=== PATIENT | male | born 1955 | race Hispanic/Latino ===

== ENCOUNTER 2017-01-27 10:48 | Inpatient (IN) | payer MEDICARE, OTHER ==
[~2017-01-27] VITALS: Ht 175.3 cm; Wt 54.4 kg
[~2017-01-27 10:48] MED LIST: ABILIFY20 MG ORAL; ALUMINUM H320 MG/5 M PO; AMLODIPINE BESYL5 MG ORAL; ASPIR-LOW81 MG ORAL; ATORVASTATIN CA20 MG ORAL; BACTRIM DOUBLE S1 E1 ORAL; BISACODYL5 MG ORAL; DEPAKENE L250 MG/5 M GT; DOCUSATE SODIU100 MG ORAL; GLIMEPIRIDE1 MG GT; KLONOPIN0.5 MG ORAL; LISINOPRIL10 MG ORAL; LISINOPRIL5 MG ORAL; LORAZEPAM1 MG ORAL; MAGNESIUM400 M2 PO; METFORMIN HCL500 M1 ORAL; MIRTAZAPINE7.5 MG ORAL; MOM30 ML ORAL; NORCO 5-325 TA1 EAC1 ORAL; NOVOLIN R100 UNIT/1 SUBQ; PANTOPRAZOLE SO20 MG ORAL; PERMETHRIN60 GM TOPIC; PRO-AMATINE5 M1 PO; SIMVASTATIN40 MG ORAL; TAMSULOSIN HCL0.4 MG ORAL; VANCO-0.9%1.25 GM/25 IV
[2017-01-27 11:08] VITALS: BP 102/68
[2017-01-27] MEDS ORDERED: NS 1000ml 1,600 ML IVLG ONE (11:45)
[2017-01-27 11:52] LABS: BASOPHILS % (AUTO) 0.7 % (0.0-2.0); EOSINOPHILS % (AUTO) 0.1 % (0.0-3.0); LYMPHOCYTES % (AUTO) 11.6 % (20.0-45.0); MEAN CORPUSCULAR HEMOGLOBIN 30.7 PG (27.0-31.0); MEAN CORPUSCULAR HGB CONC 32.7 G/DL (32.0-36.0); MEAN CORPUSCULAR VOLUME 94 FL (80-99); MEAN PLATELET VOLUME 5.5 FL (6.5-10.1); NEUTROPHILS % (AUTO) 84.6 % (45.0-75.0); PLATELET COUNT 332 K/UL (150-450); RED BLOOD COUNT 3.37 M/UL (4.70-6.10); RED CELL DISTRIBUTION WIDTH 13.5 % (11.6-14.8); WHITE BLOOD COUNT 3.8 K/UL (4.8-10.8)
[2017-01-27 12:04] LABS: APPEARANCE,URINE CLEAR; KETONES,URINE NEGATIVE (NEGATIVE); LEUKOCYTE ESTERASE ,URINE 1+ (NEGATIVE); NITRITE,URINE NEGATIVE (NEGATIVE); PH,URINE 8 (4.5-8.0); PROTEIN,URINE 2+ (NEGATIVE); UROBILINOGEN,URINE 12 MG/DL (0.0-1.0)
[2017-01-27 12:10] LABS: TROPONIN I < 0.30 ng/mL (<=0.30)
[2017-01-27 12:13] LABS: BACTERIA,URINE FEW /HPF; MUCUS,URINE OCCASIONAL /LPF (NONE/OCC); RBC,URINE 0-2 /HPF (0 - 0); SQUAMOUS EPITHELIAL CELL,UR OCCASIONAL /LPF (NONE/OCC)
[2017-01-27 12:13] LABS: ALANINE AMINOTRANSFERASE 12 U/L (3-41); ALBUMIN/GLOBULIN RATIO 0.6 (1.0-2.7); ANION GAP 9 (5-15); ASPARTATE AMINO TRANSFERASE 25 U/L (5-40); CALCIUM 8.1 mg/dL (8.6-10.2); CARBON DIOXIDE 30 mEQ/L (20-30); CHLORIDE 88 mEQ/L (98-107); CREATININE 0.3 mg/dL (0.7-1.2); GLOMERULAR FILTRATION RATE > 60 mL/min (>60); HEMOLYSIS 27; POTASSIUM 4.9 mEQ/L (3.4-4.9); SODIUM 127 mEQ/L (135-145); TOTAL PROTEIN 6.5 g/dL (6.6-8.7)
[2017-01-27 12:23] LABS: CKMB 2.5 ng/mL (< 6.7)
--- NOTE | 2017-01-27 12:29 | Emergency Room Report ---
History of Present Illness General Chief Complaint: Generalized Weakness Source: Patient, EMS Present Illness HPI Patient is a 61-year-old male who presented after having increased generalized weakness and decreased oxygen saturation. Patient prior history of neuromuscular disorder. Patient had increased hypoxia. Patient was increasingly weak. Patient prior history of hyponatremia. He had gradual onset of symptoms. Patient was sent for further evaluation. 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 Hx Diabetes: Yes Hx Cancer: No Hx Gastrointestinal Problems: Yes - G TUBE Hx Neurological Problems: Yes Hx Encephalitis: Yes - encepalopathy Hx Epilepsy: Yes Review of Systems All Other Systems: negative except mentioned in HPI Physical Exam Vital Signs Date Time Temp Pulse Resp B/P Pulse Ox O2 Delivery O2 Flow Rate FiO2 01/27/17 10:40 98.4 94 20 102/68 93 Nasal Cannula 3.0 General Appearance: moderate distress, Chronically Ill ENT: dry mucus membranes Neck: full range of motion Respiratory: lungs clear, decreased breath sounds Cardiovascular #1: no edema Gastrointestinal: normal bowel sounds, non tender, soft, no mass Musculoskeletal: other - atrophy Neurologic: aphasia, motor weakness, other - poor alertness Psychiatric: other - nonverbal Skin: normal inspection Medical Decision Making Diagnostic Impression: Primary Impression: Pneumonia Additional Impression: Hyponatremia ER Course The patient presented for shortness of breath.Differential included but was not limited to anemia, pneumonia, pneumothorax, myocardial infarction, pericardial effusion, congestive heart failure, acidosisBecause of complexity of patient's case laboratory testing and imaging studies were ordered. EKG interpreted by me showed normal sinus rhythm with a rate of [address] or T wave changes. Blood cultures are obtained. Patient was noted to have a normal lactic acid level. Patient was given IV fluids. He was started on IV antibiotics. Dr. Nieves was contacted for inpatient management due to pneumonia. Patient was given IV antibiotics Labs Test 01/27/17 11:30 01/27/17 11:55 White Blood Count 3.8 K/UL (4.8-10.8) Red Blood Count 3.37 M/UL (4.70-6.10) Hemoglobin 10.4 G/DL (14.2-18.0) Hematocrit 31.7 % (42.0-52.0) Mean Corpuscular Volume 94 FL (80-99) Mean Corpuscular Hemoglobin 30.7 PG (27.0-31.0) Mean Corpuscular Hemoglobin Concent 32.7 G/DL (32.0-36.0) Red Cell Distribution Width 13.5 % (11.6-14.8) Platelet Count 332 K/UL (150-450) Mean Platelet Volume 5.5 FL (6.5-10.1) Neutrophils (%) (Auto) 84.6 % (45.0-75.0) Lymphocytes (%) (Auto) 11.6 % (20.0-45.0) Monocytes (%) (Auto) 3.0 % (1.0-10.0) Eosinophils (%) (Auto) 0.1 % (0.0-3.0) Basophils (%) (Auto) 0.7 % (0.0-2.0) Sodium Level 127 mEQ/L (135-145) Potassium Level 4.9 mEQ/L (3.4-4.9) Chloride Level 88 mEQ/L (98-107) Carbon Dioxide Level 30 mEQ/L (20-30) Anion Gap 9 (5-15) Blood Urea Nitrogen 14 mg/dL (7-23) Creatinine 0.3 mg/dL (0.7-1.2) Estimat Glomerular Filtration Rate > 60 mL/min (>60) Glucose Level 78 mg/dL (74-106) Lactic Acid Level 1.00 mmol/L (0.66-2.22) Calcium Level 8.1 mg/dL (8.6-10.2) Total Bilirubin 0.2 mg/dL (0.0-1.2) Aspartate Amino Transf (AST/SGOT) 25 U/L (5-40) Alanine Aminotransferase (ALT/SGPT) 12 U/L (3-41) Alkaline Phosphatase 46 U/L (40-129) Total Creatine Kinase 226 U/L (38-174) Creatine Kinase MB 2.5 ng/mL (< 6.7) Creatine Kinase MB Relative Index 1.1 Troponin I < 0.30 ng/mL (<=0.30) Total Protein 6.5 g/dL (6.6-8.7) Albumin 2.6 g/dL (3.5-5.2) Globulin 3.9 g/dL Albumin/Globulin Ratio 0.6 (1.0-2.7) Urine Color Yellow Urine Appearance Clear Urine pH 8 (4.5-8.0) Urine Specific [place] 1.010 (1.005-1.035) Urine Protein 2+ (NEGATIVE) Urine Glucose (UA) Negative (NEGATIVE) Urine Ketones Negative (NEGATIVE) Urine Occult Blood Negative (NEGATIVE) Urine Nitrite Negative (NEGATIVE) Urine Bilirubin Negative (NEGATIVE) Urine Urobilinogen 12 MG/DL (0.0-1.0) Urine Leukocyte Esterase 1+ (NEGATIVE) Urine RBC 0-2 /HPF (0 - 0) Urine WBC 2-4 /HPF (0 - 0) Urine Squamous Epithelial Cells Occasional /LPF Urine Bacteria Few /HPF (NONE) Urine Mucus Occasional /LPF Chest X-Ray Diagnostic Results EP Interpretation: Yes Findings: no effusion, no pneumothorax, other - right lower lung infiltrate Number of Views: 1 Last Vital Signs Date Time Temp Pulse Resp B/P Pulse Ox O2 Delivery O2 Flow Rate FiO2 01/27/17 11:08 98.6 20 102/68 93 Nasal Cannula 3.0 01/27/17 10:40 94 Status: unchanged Disposition: ADMITTED INPATIENT Condition: Serious Referrals: Kyle Nieves MD (PCP) Randell Morales Jan 27, 2017 12:29
[2017-01-27] MEDS ORDERED: Ampicillin/Sulbactam Sod 3 GM in NS 110 ML IVPB ONE (12:30)
[2017-01-27] MEDS ORDERED: Unasyn 3gm Inj ONE (12:44)
--- NOTE | 2017-01-27 12:55 | Consultation ---
Consult Note Consult Note Chief Complaint: Generalized Weakness Patient is a 61-year-old male who presented after having increased generalized weakness and decreased oxygen saturation. Patient prior history of neuromuscular disorder. Patient had increased hypoxia. Patient was increasingly weak. Patient prior history of hyponatremia. He had gradual onset of symptoms. Patient was sent for further evaluation. No Known Allergies (Unverified , 10/23/14) Hx Cardiac Problems: Yes Hx Hypertension: Yes Hx Diabetes: Yes Hx Gastrointestinal Problems: Yes - G TUBE Hx Neurological Problems: Yes Hx Encephalitis: Yes - encepalopathy Hx Epilepsy: Yes Assessment/Plan Status; HypoNatremia- DM, Proteinuria Pneumonia- PH: 1. History of hypertension. 2. Dallas's disease. 3. Psychosis. 4. Hyperlipidemia. 5. Diabetes. 6. Mood disorder. 7. Benign prostatic hypertrophy. Plan: 3% saline- gastric support- Monitor Lytes- Keep BP and BS in check SHILOH HUTSON Jan 27, 2017 12:55
--- NOTE | 2017-01-27 13:24 | Infectious Diseases Prog Note ---
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 Assessment & Plan: advanced , continue supportive care, consult neurology (5) Ear abrasion Assessment & Plan: recommend , ENT eval and offloading, with local wound care Subjective Allergies: Coded Allergies: No Known Allergies (Unverified , 10/23/14) Objective Vital Signs Last 24 Hour Vital Signs Date Time Temp Pulse Resp B/P Pulse Ox O2 Delivery O2 Flow Rate FiO2 01/27/17 11:08 98.6 20 102/68 93 Nasal Cannula 3.0 01/27/17 10:40 98.4 94 20 102/68 93 Nasal Cannula 3.0 Height (Feet): 5 Height (Inches): 9.00 Weight (Pounds): 120 Laboratory Tests Test 01/27/17 11:30 01/27/17 11:55 White Blood Count 3.8 K/UL (4.8-10.8) L Red Blood Count 3.37 M/UL (4.70-6.10) L Hemoglobin 10.4 G/DL (14.2-18.0) L Hematocrit 31.7 % (42.0-52.0) L Mean Corpuscular Volume 94 FL (80-99) Mean Corpuscular Hemoglobin 30.7 PG (27.0-31.0) Mean Corpuscular Hemoglobin Concent 32.7 G/DL (32.0-36.0) Red Cell Distribution Width 13.5 % (11.6-14.8) Platelet Count 332 K/UL (150-450) Mean Platelet Volume 5.5 FL (6.5-10.1) L Neutrophils (%) (Auto) 84.6 % (45.0-75.0) H Lymphocytes (%) (Auto) 11.6 % (20.0-45.0) L Monocytes (%) (Auto) 3.0 % (1.0-10.0) Eosinophils (%) (Auto) 0.1 % (0.0-3.0) Basophils (%) (Auto) 0.7 % (0.0-2.0) Sodium Level 127 mEQ/L (135-145) L Potassium Level 4.9 mEQ/L (3.4-4.9) Chloride Level 88 mEQ/L (98-107) L Carbon Dioxide Level 30 mEQ/L (20-30) Anion Gap 9 (5-15) Blood Urea Nitrogen 14 mg/dL (7-23) Creatinine 0.3 mg/dL (0.7-1.2) L Estimat Glomerular Filtration Rate > 60 mL/min (>60) Glucose Level 78 mg/dL (74-106) Lactic Acid Level 1.00 mmol/L (0.66-2.22) Calcium Level 8.1 mg/dL (8.6-10.2) L Total Bilirubin 0.2 mg/dL (0.0-1.2) Aspartate Amino Transf (AST/SGOT) 25 U/L (5-40) Alanine Aminotransferase (ALT/SGPT) 12 U/L (3-41) Alkaline Phosphatase 46 U/L (40-129) Total Creatine Kinase 226 U/L (38-174) H Creatine Kinase MB 2.5 ng/mL (< 6.7) Creatine Kinase MB Relative Index 1.1 Troponin I < 0.30 ng/mL (<=0.30) Total Protein 6.5 g/dL (6.6-8.7) L Albumin 2.6 g/dL (3.5-5.2) L Globulin 3.9 g/dL Albumin/Globulin Ratio 0.6 (1.0-2.7) L Urine Color Yellow Urine Appearance Clear Urine pH 8 (4.5-8.0) Urine Specific [place] 1.010 (1.005-1.035) Urine Protein 2+ (NEGATIVE) H Urine Glucose (UA) Negative (NEGATIVE) Urine Ketones Negative (NEGATIVE) Urine Occult Blood Negative (NEGATIVE) Urine Nitrite Negative (NEGATIVE) Urine Bilirubin Negative (NEGATIVE) Urine Urobilinogen 12 MG/DL (0.0-1.0) H Urine Leukocyte Esterase 1+ (NEGATIVE) H Urine RBC 0-2 /HPF (0 - 0) H Urine WBC 2-4 /HPF (0 - 0) Urine Squamous Epithelial Cells Occasional /LPF Urine Bacteria Few /HPF (NONE) Urine Mucus Occasional /LPF Joe Allen M.D. Jan 27, 2017 13:24
[2017-01-27] MEDS ORDERED: MULTIVITAMINS1 EAC8 GT (13:42)
[2017-01-27] MEDS ORDERED: FLAGYL500 MG GT (13:42)
[2017-01-27] MEDS ORDERED: ZINC SULFATE220 M1 GT (13:42)
[2017-01-27] MEDS ORDERED: VITAMIN C500 M1 GT (13:42)
[2017-01-27 13:45] VITALS: BP 97/48
[2017-01-27] MEDS ORDERED: KLONOPIN1 MG GT (13:45)
[2017-01-27] MEDS ORDERED: LAMICTAL25 MG GT (13:45)
[2017-01-27] MEDS ORDERED: ASPIR-LOW81 MG GT (13:45)
[2017-01-27] MEDS ORDERED: BENZTROPINE MESY1 MG GT (13:45)
[2017-01-27] MEDS ORDERED: CALCIUM CARBON500 M1 GT (13:48)
[2017-01-27] MEDS ORDERED: GABAPENTIN100 MG GT (13:48)
[2017-01-27] MEDS ORDERED: NaCl 3% 500ml 500 ML IV ONE (15:00)
[2017-01-27] MEDS ORDERED: Zosyn 4.5gm inj ONE (15:02)
[2017-01-27] MEDS ORDERED: Vancomycin 1gm inj IVPB ONE (15:02)
[2017-01-27] MEDS: Vancomycin 1 GM in D5W 275 ML IVPB SCH (15:12)
[2017-01-27 16:00] VITALS: BP 108/84
[2017-01-27] MEDS: Piperacillin/Tazobactam 4.5 GM in NS 110 ML IVPB SCH ×2 (16:04→23:47)
--- NOTE | 2017-01-27 16:06 | Diagnostic Imaging Report ---
Indication: SOB chest pain Technique: One view of the chest Comparison: none Findings: Jejunoileal infiltrates throughout the right lung are noted. There is some left perihilar interstitial disease. Pleural spaces are clear. Size is normal. Impression: Diffuse right, minimal left lung infiltrates versus edema. Correlate with clinical findings
[2017-01-27] MEDS: Pantoprazole Inj IVP SCH (17:43)
[2017-01-27 17:48] VITALS: BP 93/43
--- NOTE | 2017-01-27 20:02 | Consultation ---
Consult Note Consult Note NEUROLOGY CONSULTATION: Full note dictated #[id number] 61 y/o, HM of ?H who has a long H/O HD. He was hospitalized for a change in MS. ON EXAM: Oriented to self only. Global cognitive problems. Generalized weakness. Choreoathetotic movements of UE and facial muscles. Globally diminished reflexes. LABS: Na 127 Anemia UTI IMPRESSION: Patient with advanced HD Superadded encephalopathy due to hyponatremia and UTI. REC: Rx of infection and correction of metabolic imbalances. Garrison Reid M.D., M.S.P.H. GARRISON REID Jan 27, 2017 20:02
[2017-01-27 20:30] VITALS: BP 100/57
--- NOTE | 2017-01-27 21:38 | Consultation ---
DATE OF CONSULTATION: INFECTIOUS DISEASE CONSULTATION: REASON FOR CONSULTATION: Healthcare-acquired pneumonia, sepsis, and recommendation for antibiotics therapy. REQUESTING PHYSICIAN: Kyel Nieves M.D. HISTORY OF PRESENT ILLNESS: The patient is a 61-year-old male with progressive Le Flore disease and disability, was sent to [facility] for decreased oxygen saturation from the correction facility home and generalized weakness. The patient had Le Flore disease which has been progressive. He was found to be hypoxemic at the correction facility. The patient was recently admitted to [facility] for sacral wound infection and sepsis and he underwent surgical debridement and was transferred back to his correction facility on antibiotics. In the emergency room, he was saturating 93% on three liters nasal cannula. His temperature was 98.4 degrees. The patient look septic, so he was admitted to the hospital for sepsis management and antibiotics treatment and I was consulted by the primary provider for antibiotics therapy for his pneumonia with right lower lobe infiltrates. As of note, the patient is poor historian, cannot provide any history. History was mainly obtained from the medical record. PAST MEDICAL HISTORY: Significant for coronary artery disease, hypertension, diabetes, dysphagia status post G-tube placement, neurodegenerative disorder with Le Flore disease, advanced encephalopathy, and epilepsy. PAST SURGICAL HISTORY: He had G-tube placed. MEDICATIONS: He had received Unasyn in the emergency room. ALLERGIES: He has no known drug allergy. SOCIAL HISTORY: He lives in the correction facility. No recent drugs, tobacco, or alcohol. FAMILY HISTORY: Unable to obtain. REVIEW OF SYSTEMS: Unable to obtain at this point, the patient is nonverbal. PHYSICAL EXAMINATION: VITAL SIGNS: Temperature 98.6 degrees, pulse 83, respirations 20, blood pressure 97/48, pulse oximetry 98, and saturation 98% on four liters nasal cannula. GENERAL: The patient is a middle-aged male with altered, confused, and mildly agitated, not in distress. HEENT: Normocephalic and atraumatic. Pupils reactive to light. Dry oral mucosa. No ulceration or exudate. NECK: Supple. No lymphadenopathy. CARDIOVASCULAR: Regular rate and rhythm. No murmur. LUNGS: He had diminished breathing sound with crackles on the right lower lobe. No wheezing or rhonchi. ABDOMEN: Soft, nontender, and nondistended. G-tube site looks intact. No erythema or drainage. EXTREMITIES: No edema. No cyanosis. SKIN: He had two sacral wounds debrided with mild serosanguinous drainage coming out of both of them and skin erythema surrounding the wound. LABORATORY AND DIAGNOSTIC DATA: His white count of 3.8, hemoglobin 10.4, and platelet count of 332,000. BUN 14 and creatinine 0.3. AST 25 and ALT 12. Urinalysis showed leukocyte esterase +1, WBC 2 to 4, and occasional bacteria. Imaging, chest x-ray showed right lower lobe infiltrate. ASSESSMENT AND PLAN: 1. Healthcare-acquired pneumonia. Start the patient on vancomycin and Zosyn. Send sputum culture. 2. Sepsis due to the above. We will start Zosyn and vancomycin. Send blood culture. Continue fluids for hydration. 3. Sacral pressure ulcer. We will send wound culture. Recommend wound care consultation. Continue offloading. 4. Le Flore disease, advanced. Continue supportive care. Consult Neurology. Joe Allen M.D. DR: Randy JOB#: [id number] CC:
--- NOTE | 2017-01-27 22:27 | Cardiology Progress Note ---
Assessment/Plan Assessment/Plan The patient is seen and examined, full consult note is dictated. Objective Last 24 Hour Vital Signs Date Time Temp Pulse Resp B/P Pulse Ox O2 Delivery O2 Flow Rate FiO2 01/27/17 20:30 98.6 79 15 100/57 99 Nasal Cannula 4.0 01/27/17 17:48 84 20 93/43 99 Nasal Cannula 4.0 01/27/17 16:00 82 20 108/84 96 Nasal Cannula 4.0 01/27/17 13:45 83 20 97/48 98 Nasal Cannula 4.0 01/27/17 11:08 98.6 20 102/68 93 Nasal Cannula 3.0 01/27/17 10:40 98.4 94 20 102/68 93 Nasal Cannula 3.0 Laboratory Tests Test 01/27/17 11:30 01/27/17 11:55 White Blood Count 3.8 K/UL (4.8-10.8) L Red Blood Count 3.37 M/UL (4.70-6.10) L Hemoglobin 10.4 G/DL (14.2-18.0) L Hematocrit 31.7 % (42.0-52.0) L Mean Corpuscular Volume 94 FL (80-99) Mean Corpuscular Hemoglobin 30.7 PG (27.0-31.0) Mean Corpuscular Hemoglobin Concent 32.7 G/DL (32.0-36.0) Red Cell Distribution Width 13.5 % (11.6-14.8) Platelet Count 332 K/UL (150-450) Mean Platelet Volume 5.5 FL (6.5-10.1) L Neutrophils (%) (Auto) 84.6 % (45.0-75.0) H Lymphocytes (%) (Auto) 11.6 % (20.0-45.0) L Monocytes (%) (Auto) 3.0 % (1.0-10.0) Eosinophils (%) (Auto) 0.1 % (0.0-3.0) Basophils (%) (Auto) 0.7 % (0.0-2.0) Sodium Level 127 mEQ/L (135-145) L Potassium Level 4.9 mEQ/L (3.4-4.9) Chloride Level 88 mEQ/L (98-107) L Carbon Dioxide Level 30 mEQ/L (20-30) Anion Gap 9 (5-15) Blood Urea Nitrogen 14 mg/dL (7-23) Creatinine 0.3 mg/dL (0.7-1.2) L Estimat Glomerular Filtration Rate > 60 mL/min (>60) Glucose Level 78 mg/dL (74-106) Lactic Acid Level 1.00 mmol/L (0.66-2.22) Calcium Level 8.1 mg/dL (8.6-10.2) L Total Bilirubin 0.2 mg/dL (0.0-1.2) Aspartate Amino Transf (AST/SGOT) 25 U/L (5-40) Alanine Aminotransferase (ALT/SGPT) 12 U/L (3-41) Alkaline Phosphatase 46 U/L (40-129) Total Creatine Kinase 226 U/L (38-174) H Creatine Kinase MB 2.5 ng/mL (< 6.7) Creatine Kinase MB Relative Index 1.1 Troponin I < 0.30 ng/mL (<=0.30) Total Protein 6.5 g/dL (6.6-8.7) L Albumin 2.6 g/dL (3.5-5.2) L Globulin 3.9 g/dL Albumin/Globulin Ratio 0.6 (1.0-2.7) L Urine Color Yellow Urine Appearance Clear Urine pH 8 (4.5-8.0) Urine Specific [place] 1.010 (1.005-1.035) Urine Protein 2+ (NEGATIVE) H Urine Glucose (UA) Negative (NEGATIVE) Urine Ketones Negative (NEGATIVE) Urine Occult Blood Negative (NEGATIVE) Urine Nitrite Negative (NEGATIVE) Urine Bilirubin Negative (NEGATIVE) Urine Urobilinogen 12 MG/DL (0.0-1.0) H Urine Leukocyte Esterase 1+ (NEGATIVE) H Urine RBC 0-2 /HPF (0 - 0) H Urine WBC 2-4 /HPF (0 - 0) Urine Squamous Epithelial Cells Occasional /LPF Urine Bacteria Few /HPF (NONE) Urine Mucus Occasional /LPF BEAU JC Jan 27, 2017 22:27
--- NOTE | 2017-01-27 22:33 | Consultation ---
Consult Note Consult Note Date of consultation: 01/27/17 : 1955 HEMATOLOGY AND ONCOLOGY CONSULTATION NOTE REQUESTING PHYSICIAN: Kyle Nieves MD Reason for consultation: Sepsis and PNA. Dear Dr. 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 Majority of the history is obtained from chart and initially was at [facility] for generalized weakness and AMS on the morning of . Pt was transferred to [facility], has labs shown that he has evidence of anemia, Hb currently 10.1. Hematology service was consulted. PAST MEDICAL HISTORY: As reviewed above. PAST SURGICAL HISTORY: PEG tube placement. ALLERGIES: NKDA. MEDICATIONS: Lisinopril, Klonopin, Zocur, doxycycline, magnesium oxide, Depakote , Remeron, benztropine, amlodipine, aspirin, lamotrigine. FAMILY HISTORY: difficult to obtain. SOCIAL HISTORY: No alcohol, tobacco, or illicit drug use. REVIEW OF SYSTEMS: Difficult to obtain given mental status changes. PHYSICAL EXAMINATION: VITAL SIGNS: Blood pressure 109/63, heart rate 98, O2 sat 94% RA, respiratory rate 12, temperature 98 degrees Fahrenheit. GENERAL: NAD, oriented PULMONARY: decreased breath sounds. CARDIOVASCULAR: regular rate. No S3 or S4. ABDOMEN: soft, nontender, nondistended. EXTREMITIES: 1+ edema. LABORATORY DATA: WBC 3.8, Hb 10.4, hematocrit 30, platelet count 332. ASSESSMENT: 1. Anemia 2/2 chronic disease. 2. Decreased Hb and hematocrit, r/o GI bleed. 3. Hypernatremia. 4. Hypertension. 5. Acute exacerbation of chronic encephalopathy. 6. Sepsis with decubitis ulcerations. 7. Psychiatric history. RECS: 1. Monitor counts. 2. Anemia workup has been ordered. 3. Hb goals above 7. 4. Peripheral smear to be reviewed. 5. Medications reviewed. Potential culprits include Depakote; however, the patient has been on this for long period of time. 6. Abx per ID service. 7. Appreciate neurology as well as ID recommendations. 8. Discussed with staff. Thank you, Dr. Kyle Nieves, for this kind referral. Please do not hesistate to contact me with any further questions. William Bradley. Jan 27, 2017 22:33
--- NOTE | 2017-01-27 23:18 | Consultation ---
DATE OF CONSULTATION: 01/27/2017 NEUROLOGY CONSULTATION CONSULTING PHYSICIAN: Fantasma Reid M.D. REQUESTING PHYSICIAN: Kyle Nieves M.D. HISTORY: Mr. Reece Murray is a 61-year-old, gentleman, of unknown handedness, who has a long history of Rawlings's disease. He has advanced Rawlings's disease and is basically bed bound and fed through a gastrostomy. He lives in a senior living, where he was noted to have an alteration in his mental state. The exact details of this alteration in mental status is quite mysterious to us. The patient himself is unable to give me any history. PAST MEDICAL HISTORY: Significant for Khalida's disease, hypertension, dyslipidemia, diabetes mellitus, psychosis, and benign prostatic hypertrophy. FAMILY HISTORY: Unavailable. PERSONAL HISTORY: Home: He lives in a senior living. Work: Unknown. Habits: Unknown. PRESENT MEDICATIONS: Includes aspirin 81 mg daily, pantoprazole, piperacillin, tazobactam, and vancomycin. PHYSICAL EXAMINATION: GENERAL: He is a well-developed, but lean and cachectic-looking gentleman, lying in an emergency room [facility], in a position. VITAL SIGNS: Pulse 84 per minute, blood pressure 93/43 mmHg, respirations 20 per minute, and temperature 98.6 degrees Fahrenheit. HEAD: Normocephalic and atraumatic. EENT: Examination benign. NECK: No neck rigidity was observed. NEUROLOGICAL EXAMINATION: MENTAL STATUS EXAMINATION: He was awake, but not completely alert. He was oriented to self only. He had no idea of where he was or what the date was. He was unable to cooperate for further mental status testing. SPEECH: He had a moderate dysarthria. LANGUAGE: He had problems with comprehension and expression of language. CRANIAL NERVE EXAMINATION: II: He did blink to threat in all dimas. He, however, was unable to cooperate for confrontation testing and in addition was also unable to count fingers. III, IV & : The external ocular movements were full and the pupils 3 mm in diameter, equal, round, regular, and reactive to light. V: He had normal facial sensations and the temporales, masseters, and pterygoids functioned normally. VII: He had normal facial expressions and no facial asymmetry. VIII: He was able to hear and had no nystagmus. IX: The palate moved symmetrically on phonation. X: He had no hoarseness of voice. XI: The sternocleidomastoids and trapezii functioned normally. XII: The tongue was in the midline without any fasciculations or atrophy. MOTOR SYSTEM: The tone was increased in all four extremities with spasticity. Examination of muscle mass revealed severe generalized muscle wasting involving the lower extremities more than the upper extremities. Examination of power was impossible to perform on individual muscle groups. He had a significant quadriparesis involving the lower extremities more than the upper extremities. SENSORY EXAMINATION: He responded appropriately to deep pain. He was unable to cooperate for other sensory modalities. REFLEXES: 1+ and bilaterally symmetrical at the biceps, triceps, brachioradialis, and knees and 0 at both ankles. The plantar responses were flexor bilaterally. COORDINATION, STANCE & GAIT: Could not be tested. ABNORMAL MOVEMENTS: He exhibited choreoathetotic movements involving his upper extremities and the facial muscles. In addition, he also exhibited constant bruxism. DIAGNOSTIC IMPRESSION: 1. Mr. Reece Murray is a 61-year-old, gentleman, of unknown handedness, who has a long history of Rawlings's disease, who was hospitalized for "a change in mental state and generalized weakness." This consultation was requested to evaluate the patient for his altered mental state. 2. On neurological examination, at this time, he does demonstrate global cerebral dysfunction. He is oriented to self only and is unable to cooperate for other mental status testing. He also demonstrates generalized weakness and generalized wasting of the muscles. His deep tendon reflexes are globally diminished. He, in addition, exhibits choreoathetotic movements of his upper extremities and facial muscles. 3. Laboratory data revealed that he is significantly hyponatremic with a sodium of 127. His CK is elevated to 226. He is significantly hypoalbuminemic with albumin of 2.6. His CBC reveals that he is anemic with a hemoglobin of 10.4 and his urinalysis revealed 1+ leukocyte esterase, 0 to 2 red blood cells per high-power field, 2 to 4 white blood cells per high-power field, and a few urinary bacteria. 4. 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 RECOMMENDATIONS: 1. Agree with management thus far. 2. Aggressive treatment of the patient's infectious process. 3. Correction of the patient's metabolic dysfunction. 4. Depending on how the patient fares over the next day or so, further recommendations will be given. Thank you for entrusting me with the care of Mr. Murray. I shall follow him with you. Fantasma Reid M.D., M.S.P.H. DR: ALBINA JOB#: [id number] MTDD
[2017-01-28] VITALS: BP 90/57
[2017-01-28] MEDS ORDERED: Vancomycin 1gm inj IVPB ONE (02:39)
[2017-01-28] MEDS: Vancomycin 1 GM in D5W 275 ML IVPB SCH ×2 (03:10→15:30)
[2017-01-28 04:00] VITALS: BP 95/50
[2017-01-28 05:04] LABS: MEAN CORPUSCULAR HEMOGLOBIN 31.7 PG (27.0-31.0); MEAN CORPUSCULAR HGB CONC 33.4 G/DL (32.0-36.0); MEAN CORPUSCULAR VOLUME 95 FL (80-99); MEAN PLATELET VOLUME 5.4 FL (6.5-10.1); PLATELET COUNT 301 K/UL (150-450); RED BLOOD COUNT 2.86 M/UL (4.70-6.10); RED CELL DISTRIBUTION WIDTH 13.5 % (11.6-14.8); WHITE BLOOD COUNT 2.6 K/UL (4.8-10.8)
[2017-01-28 05:19] LABS: ALANINE AMINOTRANSFERASE 13 U/L (3-41); ALBUMIN/GLOBULIN RATIO 0.6 (1.0-2.7); ANION GAP 11 (5-15); ASPARTATE AMINO TRANSFERASE 29 U/L (5-40); CARBON DIOXIDE 28 mEQ/L (20-30); CHLORIDE 89 mEQ/L (98-107); CHOLESTEROL 55 mg/dL (< 200); CHOLESTEROL/HDL RATIO 3.9 (3.3-4.4); CREATININE 0.3 mg/dL (0.7-1.2); CRP QUANT 10.5 mg/dL (< 0.5); GLOMERULAR FILTRATION RATE > 60 mL/min (>60); HEMOLYSIS 2; LDL CHOLESTEROL (CALC.) 30 mg/dL (60-99); MAGNESIUM 1.8 mg/dL (1.7-2.5); PHOSPHORUS 3.8 mg/dL (2.5-4.8); POTASSIUM 3.7 mEQ/L (3.4-4.9); SODIUM 128 mEQ/L (135-145); URIC ACID 2.1 mg/dL (3.0-7.5)
[2017-01-28 05:27] LABS: HEMOLYSIS 37; IRON 14 ug/dL (59-158); TOTAL IRON BINDING CAPACITY 160 ug/dL (250-400)
[2017-01-28 05:30] LABS: FERRITIN 362 ng/mL (10-230)
[2017-01-28 05:39] LABS: HEMOGLOBIN A1C 4.5 % (< 6.0)
[2017-01-28 05:41] LABS: BAND NEUTROPHILS % (MANUAL) 4 % (0-8); BASOPHILS % (MANUAL) 1 % (0-2); EOSINOPHILS % (MANUAL) 0 % (0-3); LYMPHOCYTES % (MANUAL) 26 % (20-45); NEUTROPHILS % (MANUAL) 65 % (45-75); PLATELET ESTIMATE ADEQUATE; TOTAL CELLS COUNTED 100
[2017-01-28 05:42] LABS: HYPOCHROMASIA 2+; PLATELET MORPHOLOGY NORMAL; SPHEROCYTES 1+
[2017-01-28 08:00] VITALS: BP 97/59
[2017-01-28] MEDS: Aspirin Baby 81mg GT SCH (09:00)
[2017-01-28] MEDS ORDERED: Aspirin EC 81mg tab ORAL SCH (09:00)
[2017-01-28] MEDS: Piperacillin/Tazobactam 4.5 GM in NS 110 ML IVPB SCH (09:00)
[2017-01-28] MEDS: Pantoprazole Inj IVP SCH (09:08)
[2017-01-28 12:00] VITALS: BP 94/53
--- NOTE | 2017-01-28 12:45 | General Progress Note ---
Assessment/Plan Status: unchanged Status Narrative Na 128 Assessment/Plan HypoNatremia- depletional vs SIADH DM, Proteinuria Pneumonia- PH: 1. History of hypertension. 2. [place]onder[place]'s disease. 3. Psychosis. 4. Hyperlipidemia. 5. Diabetes. 6. Mood disorder. 7. Benign prostatic hypertrophy. Plan: start feeding IV lasix Midodrin 3% saline- gastric support- Monitor Lytes- Keep BP and BS in check Subjective ROS Limited/Unobtainable: No Constitutional: Reports: malaise Allergies: Coded Allergies: No Known Allergies (Unverified , 10/23/14) Objective Last 24 Hour Vital Signs Date Time Temp Pulse Resp B/P Pulse Ox O2 Delivery O2 Flow Rate FiO2 01/28/17 12:00 98.5 71 20 94/53 96 Nasal Cannula 5.0 01/28/17 08:00 97.4 65 19 97/59 99 Nasal Cannula 5.0 01/28/17 08:00 73 01/28/17 04:00 73 01/28/17 04:00 98.0 72 20 95/50 94 Room Air 01/28/17 00:00 98.0 71 20 90/57 100 Nasal Cannula 3.0 01/28/17 00:00 74 01/27/17 21:36 98.6 79 15 100/57 99 Nasal Cannula 4.0 01/27/17 20:30 98.6 79 15 100/57 99 Nasal Cannula 4.0 01/27/17 17:48 84 20 93/43 99 Nasal Cannula 4.0 01/27/17 16:00 82 20 108/84 96 Nasal Cannula 4.0 01/27/17 13:45 83 20 97/48 98 Nasal Cannula 4.0 Intake and Output 01/27/17 01/28/17 19:00 07:00 Intake Total 2060 ml 477.416 ml Output Total 800 ml Balance 2060 ml -322.584 ml Intake Oral 0 ml IV Total 2060 ml 477.416 ml Output Urine Total 800 ml # Bowel Movements 2 2 Laboratory Tests 01/28/17 03:00: White Blood Count 2.6L, Red Blood Count 2.86L, Hemoglobin 9.1L, Hematocrit 27.1L , Mean Corpuscular Volume 95, Mean Corpuscular Hemoglobin 31.7H, Mean Corpuscular Hemoglobin Concent 33.4, Red Cell Distribution Width 13.5, Platelet Count 301, Mean Platelet Volume 5.4L, Neutrophils (%) (Auto) , Lymphocytes (%) ( Auto) , Monocytes (%) (Auto) , Eosinophils (%) (Auto) , Basophils (%) (Auto) , Differential Total Cells Counted 100, Neutrophils % (Manual) 65, Lymphocytes % ( Manual) 26, Monocytes % (Manual) 4, Eosinophils % (Manual) 0, Basophils % ( Manual) 1, Band Neutrophils 4, Platelet Estimate Adequate, Platelet Morphology Normal, Hypochromasia 2+, Spherocytes 1+, Sodium Level 128L, Potassium Level 3.7 , Chloride Level 89L, Carbon Dioxide Level 28, Anion Gap 11, Blood Urea Nitrogen 12, Creatinine 0.3L, Estimat Glomerular Filtration Rate > 60, Glucose Level 74, Hemoglobin A1c 4.5, Plasma/Serum Osmolality [Pending], Uric Acid 2.1L , Calcium Level 8.0L, Phosphorus Level 3.8, Magnesium Level 1.8, Iron Level 14L , Total Iron Binding Capacity 160L, Percent Iron Saturation 9L, Unsaturated Iron Binding 146, Ferritin 362H, Total Bilirubin 0.3, Gamma Glutamyl Transpeptidase 12, Aspartate Amino Transf (AST/SGOT) 29, Alanine Aminotransferase (ALT/SGPT) 13, Alkaline Phosphatase 39L, C-Reactive Protein, Quantitative 10.5H, Pro-B-Type Natriuretic Peptide 672H, Total Protein 6.0L, Albumin 2.3L, Globulin 3.7, Albumin/Globulin Ratio 0.6L, Triglycerides Level 55 , Cholesterol Level 55, LDL Cholesterol 30L, HDL Cholesterol 14, Cholesterol/ HDL Ratio 3.9, Vitamin B12 Level 1280H, Folate [Pending], Thyroid Stimulating Hormone (TSH) 1.740 Height (Feet): 5 Height (Inches): 9.00 Weight (Pounds): 120 General Appearance: mild distress Cardiovascular: regular rhythm Respiratory/Chest: decreased breath sounds Abdomen: soft SHILOH HUTSON Jan 28, 2017 12:45
[2017-01-28] MEDS: Midodrine 10mg tab GT SCH ×2 (13:00→17:03)
[2017-01-28] MEDS: KCl 10% 20 mEq/15ml liquid GT SCH (14:00)
[2017-01-28] MEDS ORDERED: NaCl 3% 500ml 500 ML IV ONE (14:00)
[2017-01-28] MEDS ORDERED: Piperacillin/Tazobactam 3.375 GM in NS 110 ML IVPB SCH ×2 (14:00→14:20)
[2017-01-28] MEDS ORDERED: Iron Sucrose 200 MG in NS 110 ML IVPB ONE (14:00)
[2017-01-28] MEDS: Piperacillin/Tazobactam 3.375 GM in NS 110 ML IVPB SCH ×2 (15:00→22:06)
--- NOTE | 2017-01-28 15:10 | General Progress Note ---
Assessment/Plan Assessment/Plan Hematology Progress Note ASSESSMENT: 1. Anemia 2/2 iron deficiency. 2. Decreased Hgb and hematocrit, r/o GI bleed. 3. Hypernatremia. 4. Hypertension. 5. Acute exacerbation of chronic encephalopathy. 6. Sepsis with decubitis ulcerations. 7. Psychiatric history. RECS: 1. Monitor counts. 2. Anemia workup has been ordered- pt had low iron, given IV iron. 3. Hb goals above 7. 4. Peripheral smear to be reviewed. 5. Medications reviewed. Potential culprits include Depakote; however, the patient has been on this for long period of time. 6. Abx per ID service. 7. Appreciate neurology as well as ID recommendations. 8. Discussed with staff. Thank you, Dr. Kyle Nieves, for this kind referral. Please do not hesistate to contact me with any further questions. Subjective Constitutional: Reports: no symptoms HEENT: Reports: no symptoms Cardiovascular: Reports: no symptoms Respiratory: Reports: no symptoms Gastrointestinal/Abdominal: Reports: no symptoms Genitourinary: Reports: no symptoms Neurologic/Psychiatric: Reports: no symptoms Endocrine: Reports: no symptoms Hematologic/Lymphatic: Reports: anemia Allergies: Coded Allergies: No Known Allergies (Unverified , 10/23/14) Subjective NAD, pt sleeping Objective Last 24 Hour Vital Signs Date Time Temp Pulse Resp B/P Pulse Ox O2 Delivery O2 Flow Rate FiO2 01/28/17 12:00 98.5 71 20 94/53 96 Nasal Cannula 5.0 01/28/17 08:00 97.4 65 19 97/59 99 Nasal Cannula 5.0 01/28/17 08:00 73 01/28/17 04:00 73 01/28/17 04:00 98.0 72 20 95/50 94 Room Air 01/28/17 00:00 98.0 71 20 90/57 100 Nasal Cannula 3.0 01/28/17 00:00 74 01/27/17 21:36 98.6 79 15 100/57 99 Nasal Cannula 4.0 01/27/17 20:30 98.6 79 15 100/57 99 Nasal Cannula 4.0 01/27/17 17:48 84 20 93/43 99 Nasal Cannula 4.0 01/27/17 16:00 82 20 108/84 96 Nasal Cannula 4.0 Intake and Output 01/27/17 01/28/17 19:00 07:00 Intake Total 2060 ml 477.416 ml Output Total 800 ml Balance 2060 ml -322.584 ml Intake Oral 0 ml IV Total 2060 ml 477.416 ml Output Urine Total 800 ml # Bowel Movements 2 2 Laboratory Tests 01/28/17 03:00: White Blood Count 2.6L, Red Blood Count 2.86L, Hemoglobin 9.1L, Hematocrit 27.1L , Mean Corpuscular Volume 95, Mean Corpuscular Hemoglobin 31.7H, Mean Corpuscular Hemoglobin Concent 33.4, Red Cell Distribution Width 13.5, Platelet Count 301, Mean Platelet Volume 5.4L, Neutrophils (%) (Auto) , Lymphocytes (%) ( Auto) , Monocytes (%) (Auto) , Eosinophils (%) (Auto) , Basophils (%) (Auto) , Differential Total Cells Counted 100, Neutrophils % (Manual) 65, Lymphocytes % ( Manual) 26, Monocytes % (Manual) 4, Eosinophils % (Manual) 0, Basophils % ( Manual) 1, Band Neutrophils 4, Platelet Estimate Adequate, Platelet Morphology Normal, Hypochromasia 2+, Spherocytes 1+, Sodium Level 128L, Potassium Level 3.7 , Chloride Level 89L, Carbon Dioxide Level 28, Anion Gap 11, Blood Urea Nitrogen 12, Creatinine 0.3L, Estimat Glomerular Filtration Rate > 60, Glucose Level 74, Hemoglobin A1c 4.5, Plasma/Serum Osmolality [Pending], Uric Acid 2.1L , Calcium Level 8.0L, Phosphorus Level 3.8, Magnesium Level 1.8, Iron Level 14L , Total Iron Binding Capacity 160L, Percent Iron Saturation 9L, Unsaturated Iron Binding 146, Ferritin 362H, Total Bilirubin 0.3, Gamma Glutamyl Transpeptidase 12, Aspartate Amino Transf (AST/SGOT) 29, Alanine Aminotransferase (ALT/SGPT) 13, Alkaline Phosphatase 39L, C-Reactive Protein, Quantitative 10.5H, Pro-B-Type Natriuretic Peptide 672H, Total Protein 6.0L, Albumin 2.3L, Globulin 3.7, Albumin/Globulin Ratio 0.6L, Triglycerides Level 55 , Cholesterol Level 55, LDL Cholesterol 30L, HDL Cholesterol 14, Cholesterol/ HDL Ratio 3.9, Vitamin B12 Level 1280H, Folate [Pending], Thyroid Stimulating Hormone (TSH) 1.740 Height (Feet): 5 Height (Inches): 9.00 Weight (Pounds): 120 General Appearance: mild distress EENT: PERRL/EOMI Neck: non-tender Cardiovascular: normal peripheral pulses Respiratory/Chest: decreased breath sounds Abdomen: normal bowel sounds Extremities: normal range of motion Edema: no edema noted Leg (L), no edema noted Leg (R), no edema noted Pedal (L) , no edema noted Pedal (R), no edema noted Generalized Neurologic: soaker hides II-XII grossly normal Skin: warm/dry William Bradley Jan 28, 2017 15:10
[2017-01-28 16:00] VITALS: BP 105/64
--- NOTE | 2017-01-28 17:07 | Neurology Progress Note ---
Interim History Interim History Interim History Mr. Murray feels better. He is minimally more verbal today. His choreoathetotic movements are more robust. He denies any pain or discomfort. He continues to be cognitively impoverished and weak. Review of Systems Neuro Review of Systems Benign. Objective Physical Exam Last Vital Signs Date Time Temp Pulse Resp B/P Pulse Ox O2 Delivery O2 Flow Rate FiO2 01/28/17 16:00 77 01/28/17 16:00 92 Nasal Cannula 2.0 28 01/28/17 12:00 98.5 20 94/53 Laboratory Tests Test 01/28/17 03:00 White Blood Count 2.6 K/UL (4.8-10.8) L Red Blood Count 2.86 M/UL (4.70-6.10) L Hemoglobin 9.1 G/DL (14.2-18.0) L Hematocrit 27.1 % (42.0-52.0) L Mean Corpuscular Volume 95 FL (80-99) Mean Corpuscular Hemoglobin 31.7 PG (27.0-31.0) H Mean Corpuscular Hemoglobin Concent 33.4 G/DL (32.0-36.0) Red Cell Distribution Width 13.5 % (11.6-14.8) Platelet Count 301 K/UL (150-450) Mean Platelet Volume 5.4 FL (6.5-10.1) L Neutrophils (%) (Auto) % (45.0-75.0) Lymphocytes (%) (Auto) % (20.0-45.0) Monocytes (%) (Auto) % (1.0-10.0) Eosinophils (%) (Auto) % (0.0-3.0) Basophils (%) (Auto) % (0.0-2.0) Differential Total Cells Counted 100 Neutrophils % (Manual) 65 % (45-75) Lymphocytes % (Manual) 26 % (20-45) Monocytes % (Manual) 4 % (1-10) Eosinophils % (Manual) 0 % (0-3) Basophils % (Manual) 1 % (0-2) Band Neutrophils 4 % (0-8) Platelet Estimate Adequate Platelet Morphology Normal Hypochromasia 2+ Spherocytes 1+ Sodium Level 128 mEQ/L (135-145) L Potassium Level 3.7 mEQ/L (3.4-4.9) Chloride Level 89 mEQ/L (98-107) L Carbon Dioxide Level 28 mEQ/L (20-30) Anion Gap 11 (5-15) Blood Urea Nitrogen 12 mg/dL (7-23) Creatinine 0.3 mg/dL (0.7-1.2) L Estimat Glomerular Filtration Rate > 60 mL/min (>60) Glucose Level 74 mg/dL (74-106) Hemoglobin A1c 4.5 % (< 6.0) Plasma/Serum Osmolality Pending Uric Acid 2.1 mg/dL (3.0-7.5) L Calcium Level 8.0 mg/dL (8.6-10.2) L Phosphorus Level 3.8 mg/dL (2.5-4.8) Magnesium Level 1.8 mg/dL (1.7-2.5) Iron Level 14 ug/dL (59-158) L Total Iron Binding Capacity 160 ug/dL (250-400) L Percent Iron Saturation 9 % (15-50) L Unsaturated Iron Binding 146 ug/dL (112-346) Ferritin 362 ng/mL (10-230) H Total Bilirubin 0.3 mg/dL (0.0-1.2) Gamma Glutamyl Transpeptidase 12 U/L (8-61) Aspartate Amino Transf (AST/SGOT) 29 U/L (5-40) Alanine Aminotransferase (ALT/SGPT) 13 U/L (3-41) Alkaline Phosphatase 39 U/L (40-129) L C-Reactive Protein, Quantitative 10.5 mg/dL (< 0.5) H Pro-B-Type Natriuretic Peptide 672 pg/mL (0-125) H Total Protein 6.0 g/dL (6.6-8.7) L Albumin 2.3 g/dL (3.5-5.2) L Globulin 3.7 g/dL Albumin/Globulin Ratio 0.6 (1.0-2.7) L Triglycerides Level 55 mg/dL (< 150) Cholesterol Level 55 mg/dL (< 200) LDL Cholesterol 30 mg/dL (60-99) L HDL Cholesterol 14 mg/dL (> 60) Cholesterol/HDL Ratio 3.9 (3.3-4.4) Vitamin B12 Level 1280 pg/mL (211-946) H Folate Pending Thyroid Stimulating Hormone (TSH) 1.740 uIU/mL (0.300-4.500) Neurologic Exam Objective PHYSICAL EXAMINATION: GENERAL: He is a well-developed, but lean and cachectic-looking gentleman, lying in bed, in a position. HEAD: Normocephalic and atraumatic. EENT: Examination benign. NECK: No neck rigidity was observed. NEUROLOGICAL EXAMINATION: MENTAL STATUS EXAMINATION: He was awake, and more alert. He was oriented to self only. He had no idea of where he was or what the date was. He was unable to cooperate for further mental status testing. SPEECH: He had a moderate dysarthria. LANGUAGE: He had problems with comprehension and expression of language. CRANIAL NERVE EXAMINATION: II: He did blink to threat in all dimas. He, however, was unable to cooperate for confrontation testing and in addition was also unable to count fingers. III, IV & : The external ocular movements were full and the pupils 3 mm in diameter, equal, round, regular, and reactive to light. V: He had normal facial sensations and the temporales, masseters, and pterygoids functioned normally. VII: He had normal facial expressions and no facial asymmetry. VIII: He was able to hear and had no nystagmus. IX: The palate moved symmetrically on phonation. X: He had no hoarseness of voice. XI: The sternocleidomastoids and trapezii functioned normally. XII: The tongue was in the midline without any fasciculations or atrophy. MOTOR SYSTEM: The tone was increased in all four extremities with spasticity. Examination of muscle mass revealed severe generalized muscle wasting involving the lower extremities more than the upper extremities. Examination of power was impossible to perform on individual muscle groups. He had a significant quadriparesis involving the lower extremities more than the upper extremities. SENSORY EXAMINATION: He responded appropriately to deep pain. He was unable to cooperate for other sensory modalities. REFLEXES: 1+ and bilaterally symmetrical at the biceps, triceps, brachioradialis , and knees and 0 at both ankles. The plantar responses were flexor bilaterally. COORDINATION, STANCE & GAIT: Could not be tested. ABNORMAL MOVEMENTS: He exhibited choreoathetotic movements involving all his extremities and the facial muscles. In addition, he also exhibited constant bruxism. Impression/Recommendations Diagnostic Impression 1. Mr. Reece Murray is a 61-year-old, gentleman, of unknown handedness, who has a long history of [place]'s disease, who was hospitalized for "a change in mental state and generalized weakness." 2. He feels better today. He continues to exhibit choreoathetotic movements that are more robust. He continues to be cognitively impoverished and weak. 3. On neurological examination, at this time, he does demonstrate global cerebral dysfunction. He is oriented to self only and is unable to cooperate for other mental status testing. He also demonstrates generalized weakness and generalized wasting of the muscles. His deep tendon reflexes are globally diminished. He, in addition, exhibits choreoathetotic movements of all his extremities and facial muscles. 4. Laboratory data on initial evaluation revealed that he was significantly hyponatremic with a sodium of 127. His CK was elevated to 226. He was significantly hypoalbuminemic with an albumin of 2.6. His CBC revealed that he is anemic with a hemoglobin of 10.4 and his urinalysis revealed 1+ leukocyte esterase, 0 to 2 red blood cells per high-power field, 2 to 4 white blood cells per high-power field, and a few urinary bacteria. 5. His B12 and TSH are normal. 6. 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 Recommendations 1. Continue present management. 2. Aggressive treatment of the patient's infectious process. 3. Correction of the patient's metabolic dysfunction. 4. Observe closely. Garrison Reid M.D., M.S.P.H. GARRISON REID Jan 28, 2017 17:07
--- NOTE | 2017-01-28 17:28 | History and Physical Report ---
DATE OF ADMISSION: 01/27/2017 CHIEF COMPLAINT: Generalized weakness, rule out sepsis. HISTORY OF PRESENT ILLNESS: The patient has [place]'s chorea, cannot obtain history from the patient. The patient was also altered at the long term, also admitted for hyponatremia. The patient is diabetic as well. The patient is here to rule out sepsis. The patient again is nonverbal, is more alert today; however, cannot get any history from the patient. PAST MEDICAL HISTORY: Significant for [place]'s chorea, history of hyponatremia, history of decubitus, generalized weakness, constipation, gastroesophageal reflux disease, NIDDM, hypertension, neuropathy, and psychosis. PAST SURGICAL HISTORY: In the past, G-tube. MEDICATIONS: Abilify, vitamin C, aspirin, Dulcolax, Klonopin, gabapentin, Lamictal, lisinopril, lorazepam, metformin. ALLERGIES: He has no known drug allergy. SOCIAL HISTORY: Unable to obtain. FAMILY HISTORY: Unable to obtain. REVIEW OF SYSTEMS: Unable to obtain. Very poor historian. PHYSICAL EXAMINATION: VITAL SIGNS: Temperature is 97.4 degrees, pulse 73, and blood pressure 97/59. HEENT: PERRLA. NECK: Supple. No lymphadenopathy. CHEST: Clear to auscultation. GASTROINTESTINAL: Soft, nontender, and nondistended. No organomegaly. EXTREMITIES: No edema. NEUROLOGIC: Does not follow, oriented x0. Reflexes are equal on both sides LABORATORY DATA: Sodium 128, potassium 3.7, BUN 12, creatinine 0.3, and glucose 74. WBC of 3.8, hemoglobin of 10.4, and platelet 332,000 ASSESSMENT: 1. Sepsis. 2. Altered mental status. 3. Hyponatremia. 4. Leukopenia. I have asked Dr. Villanueva, Dr. Bradley, Dr. Carvajal, Dr. Allen, Dr. Chapman see the patient for the above-mentioned diagnoses and treatment to find out why the patient is altered and delirious compared to his baseline. Kyle Nieves M.D. DR: Hilario JOB#: [id number] CC:
--- NOTE | 2017-01-28 17:33 | Infectious Diseases Prog Note ---
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 , continue supportive care, consult neurology (5) Ear abrasion Assessment & Plan: recommend , ENT eval and offloading, with local wound care Subjective ROS Limited/Unobtainable: Yes Allergies: Coded Allergies: No Known Allergies (Unverified , 10/23/14) Subjective he is demented, mildely agitated, in bed, afebrile Objective Vital Signs Last 24 Hour Vital Signs Date Time Temp Pulse Resp B/P Pulse Ox O2 Delivery O2 Flow Rate FiO2 01/28/17 16:00 77 01/28/17 16:00 92 Nasal Cannula 2.0 28 01/28/17 16:00 97.4 73 23 105/64 92 Nasal Cannula 2.0 01/28/17 16:00 Nasal Cannula 2.0 28 01/28/17 12:00 98.5 71 20 94/53 96 Nasal Cannula 5.0 01/28/17 12:00 79 01/28/17 08:00 97.4 65 19 97/59 99 Nasal Cannula 5.0 01/28/17 08:00 73 01/28/17 04:00 73 01/28/17 04:00 98.0 72 20 95/50 94 Room Air 01/28/17 00:00 98.0 71 20 90/57 100 Nasal Cannula 3.0 01/28/17 00:00 74 01/27/17 21:36 98.6 79 15 100/57 99 Nasal Cannula 4.0 01/27/17 20:30 98.6 79 15 100/57 99 Nasal Cannula 4.0 01/27/17 17:48 84 20 93/43 99 Nasal Cannula 4.0 Height (Feet): 5 Height (Inches): 9.00 Weight (Pounds): 120 General Appearance: WD/WN, no acute distress HEENT: normocephalic, atraumatic, anicteric, mucous membranes moist Respiratory/Chest: chest wall non-tender, no respiratory distress, no accessory muscle use, decreased breath sounds, crackles/rales Cardiovascular: normal peripheral pulses, normal rate, regular rhythm, no gallop/murmur, no JVD Abdomen: normal bowel sounds, soft, non tender, no organomegaly, non distended , no mass Extremities: no cyanosis, no clubbing Skin: ulcers Microbiology Date/Time Source Procedure Growth Status 01/27/17 22:30 Sacral Wound Gram Stain - Final Resulted 01/27/17 22:30 Sacral Wound Wound Culture Pending Resulted Laboratory Tests Test 01/28/17 03:00 White Blood Count 2.6 K/UL (4.8-10.8) L Red Blood Count 2.86 M/UL (4.70-6.10) L Hemoglobin 9.1 G/DL (14.2-18.0) L Hematocrit 27.1 % (42.0-52.0) L Mean Corpuscular Volume 95 FL (80-99) Mean Corpuscular Hemoglobin 31.7 PG (27.0-31.0) H Mean Corpuscular Hemoglobin Concent 33.4 G/DL (32.0-36.0) Red Cell Distribution Width 13.5 % (11.6-14.8) Platelet Count 301 K/UL (150-450) Mean Platelet Volume 5.4 FL (6.5-10.1) L Neutrophils (%) (Auto) % (45.0-75.0) Lymphocytes (%) (Auto) % (20.0-45.0) Monocytes (%) (Auto) % (1.0-10.0) Eosinophils (%) (Auto) % (0.0-3.0) Basophils (%) (Auto) % (0.0-2.0) Differential Total Cells Counted 100 Neutrophils % (Manual) 65 % (45-75) Lymphocytes % (Manual) 26 % (20-45) Monocytes % (Manual) 4 % (1-10) Eosinophils % (Manual) 0 % (0-3) Basophils % (Manual) 1 % (0-2) Band Neutrophils 4 % (0-8) Platelet Estimate Adequate Platelet Morphology Normal Hypochromasia 2+ Spherocytes 1+ Sodium Level 128 mEQ/L (135-145) L Potassium Level 3.7 mEQ/L (3.4-4.9) Chloride Level 89 mEQ/L (98-107) L Carbon Dioxide Level 28 mEQ/L (20-30) Anion Gap 11 (5-15) Blood Urea Nitrogen 12 mg/dL (7-23) Creatinine 0.3 mg/dL (0.7-1.2) L Estimat Glomerular Filtration Rate > 60 mL/min (>60) Glucose Level 74 mg/dL (74-106) Hemoglobin A1c 4.5 % (< 6.0) Plasma/Serum Osmolality Pending Uric Acid 2.1 mg/dL (3.0-7.5) L Calcium Level 8.0 mg/dL (8.6-10.2) L Phosphorus Level 3.8 mg/dL (2.5-4.8) Magnesium Level 1.8 mg/dL (1.7-2.5) Iron Level 14 ug/dL (59-158) L Total Iron Binding Capacity 160 ug/dL (250-400) L Percent Iron Saturation 9 % (15-50) L Unsaturated Iron Binding 146 ug/dL (112-346) Ferritin 362 ng/mL (10-230) H Total Bilirubin 0.3 mg/dL (0.0-1.2) Gamma Glutamyl Transpeptidase 12 U/L (8-61) Aspartate Amino Transf (AST/SGOT) 29 U/L (5-40) Alanine Aminotransferase (ALT/SGPT) 13 U/L (3-41) Alkaline Phosphatase 39 U/L (40-129) L C-Reactive Protein, Quantitative 10.5 mg/dL (< 0.5) H Pro-B-Type Natriuretic Peptide 672 pg/mL (0-125) H Total Protein 6.0 g/dL (6.6-8.7) L Albumin 2.3 g/dL (3.5-5.2) L Globulin 3.7 g/dL Albumin/Globulin Ratio 0.6 (1.0-2.7) L Triglycerides Level 55 mg/dL (< 150) Cholesterol Level 55 mg/dL (< 200) LDL Cholesterol 30 mg/dL (60-99) L HDL Cholesterol 14 mg/dL (> 60) Cholesterol/HDL Ratio 3.9 (3.3-4.4) Vitamin B12 Level 1280 pg/mL (211-946) H Folate Pending Thyroid Stimulating Hormone (TSH) 1.740 uIU/mL (0.300-4.500) Current Medications Medications (Trade) Dose Ordered Sig/Poornima Route PRN Reason Start Time Stop Time Status Last Admin Dose Admin Aspirin (ASA) 81 mg DAILY GT 01/28/17 09:00 02/27/17 08:59 Furosemide (Lasix) 10 mg EVERY 6 HOURS IV 01/28/17 18:00 02/27/17 17:59 01/28/17 17:03 Midodrine 10 mg 10 mg THREE TIMES A DAY GT 01/28/17 13:00 02/27/17 12:59 01/28/17 17:03 Olanzapine (ZyPREXA) 2.5 mg Q4H PRN GT Agitation 01/28/17 16:15 02/27/17 16:14 Pantoprazole (Protonix) 40 mg DAILY IVP 01/29/17 09:00 02/28/17 08:59 Piperacillin Sod/ Tazobactam Sod/ Sodium Chloride (Zosyn/Sodium Chloride) 110 ml @ 27.5 mls/hr Q8HR IVPB 01/28/17 15:00 02/04/17 14:59 01/28/17 15:00 Potassium Chloride (KCl 10% 20 mEq oral solution) 20 meq DAILY GT 01/28/17 14:00 02/27/17 13:59 01/28/17 14:00 Sodium Chloride (Hypertonic Saline) 500 ml @ 30 mls/hr ONCE ONCE IV 01/28/17 14:00 01/29/17 06:39 01/28/17 14:00 Vancomycin HCl 1 ea 1 ea DAILY PRN MISC PER RX PROTOCOL 01/28/17 14:00 02/27/17 13:59 Vancomycin HCl/ Dextrose (Vancomycin/D5W) 275 ml @ 183.708 mls/hr Q12HR@0330,1530 IVPB 01/27/17 15:30 02/01/17 15:29 01/28/17 15:30 Joe Allen M.D. Jan 28, 2017 17:33
[2017-01-28] MEDS: OLANZapine 2.5mg tab GT PRN (19:59)
[2017-01-28 20:00] VITALS: BP 110/64
--- NOTE | 2017-01-28 21:18 | Wound Care Consultation ---
Wound Assessment Wound Assessment #1: Wound Present on Admission: Yes New Wound: No Status Change of Wound: No Wound Location Body Site Modif: right, anterior Wound Location Body Site: ear Wound Type: pressure ulcer Maryam Test: Does not Maryam Pressure Ulcer Stage: IV/unstageable Wound Thickness: Full Thickness Wound Length: 3.0 Wound Width: 0.3 Wound Depth: utd Percent of Wound Bed Yellow/Wh: 100 Wound Drainage Amount: None Wound Drainage Odor: None/Absent Tissue Surrounding Wound: Erythemic Wound General Appearance: Reddened Wound Assessment #2: Wound Number: #2 Wound Present on Admission: Yes New Wound: No Status Change of Wound: No Wound Location Body Site Modif: right, posterior Wound Location Body Site: ear Wound Type: pressure ulcer Maryam Test: Does not Maryam Pressure Ulcer Stage: IV/unstageable Wound Thickness: Full Thickness Wound Length: 1.0 Wound Width: 0.8 Wound Depth: utd Percent of Wound Bed Yellow/Wh: 100 Wound Drainage Description: Serosanguineous Wound Drainage Amount: Scant Wound Drainage Odor: None/Absent Tissue Surrounding Wound: Erythemic Wound General Appearance: Reddened, Draining Wound Assessment #3: Wound Number: #3 Wound Present on Admission: Yes New Wound: No Status Change of Wound: No Wound Location Body Site Modif: left, anterior Wound Location Body Site: ear Wound Type: pressure ulcer Maryam Test: Does not Maryam Pressure Ulcer Stage: deep tissue injury Wound Thickness: Full Thickness Wound Length: 1.0 Wound Width: 0.3 Wound Depth: utd Percent of Wound Purple/Maroon: 100 Wound Drainage Amount: None Wound Drainage Odor: None/Absent Tissue Surrounding Wound: Erythemic Wound General Appearance: Reddened Wound Assessment #4: Wound Number: #4 Wound Present on Admission: Yes New Wound: No Status Change of Wound: No Wound Location Body Site Modif: mid Wound Location Body Site: sacral Wound Type: pressure ulcer Maryam Test: Does not Maryam Pressure Ulcer Stage: IV/unstageable Wound Thickness: Full Thickness Wound Length: 8.0 Wound Width: 6.0 Wound Depth: utd Percent of Wound [place]/Red: 80 Percent of Wound Bed Yellow/Wh: 10 Percent of Wound Purple/Maroon: 10 Wound Drainage Description: Serosanguineous Wound Drainage Amount: Moderate Wound Drainage Odor: None/Absent Tissue Surrounding Wound: Macerated Wound General Appearance: Reddened, Draining Wound Assessment #5: Wound Number: #5 Wound Present on Admission: Yes New Wound: No Status Change of Wound: No Wound Location Body Site Modif: left, right, lower Wound Location Body Site: leg Wound Type: scar - and dry scabs (scattered) Maryam Test: Does not Maryam Wound Thickness: Full Thickness Wound Drainage Amount: None Wound Drainage Odor: None/Absent Tissue Surrounding Wound: Intact Wound General Appearance: Asymptomatic Wound Comment #1 Right anterior ear stage IV/unstageable pressure ulcers #2 Right posterior ear stage IV/unstageable pressure ulcer #3 Left anterior ear DTI pressure ulcer #4 Sacral Stage IV/unstageable pressure ulcer that extended to left and right buttocks #5 With multiple scattered scars and dry scabs to both lower legs Upon assessment noted Pt constantly moving in bed and rubs his feet against the bed. Pt is prone to develop pressure ulcer from shear and friction. Recommendation -Sacral area pressure ulcer Cleanse with saline pat dry apply hydrogel apply calcium alginate cover with bordered gauze daily and PRN soiled/dislodged -Left and right ear pressure ulcers Cleanse with saline pat dry apply Triad cream cover with bordered gauze daily and PRN soiled -Low air loss mattress -Padded Side rials to prevent injury due to Pt constant movement -Heel protector -Elbow protector -Offload both heels -Optimize nutrition -Turn and reposition -Keep clean and dry -Assess and f/u accordingly for any changes THERESA SILVER RN Jan 28, 2017 21:18
--- NOTE | 2017-01-28 22:28 | Consultation ---
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 Psychiatry was contacted as the patient became excessively confused as well as agitated. During the evaluation, the patient is confused. He is only oriented to self and is a poor historian. He has been presenting with waxing waning consciousness, anxiety, agitation, impairment in concentration, memory, and attention. PAST PSYCHIATRIC HISTORY: He has no history of psychiatric hospitalization. He has been treated with anxiolytics in the past. PAST MEDICAL HISTORY: Significant for, 1. Coronary artery disease. 2. Hypertension. 3. Diabetes. 4. Dysphagia status post G-tube placement. 5. Epilepsy. 6. Khalida disease. 7. Neurodegenerative disorder. PAST SURGICAL HISTORY: G-tube placement. MEDICATIONS: Please see medication reconciliation form for the list of medications. ALLERGIES: No known drug allergies. SUBSTANCE ABUSE HISTORY: No history of illicit drug use or alcohol. SOCIAL HISTORY: The patient lives in a residential facility. MENTAL STATUS EXAM: The patient has been presenting with waxing waning consciousness. Oriented to only self. Mood is agitated. Affect is constricted. Congruent with mood. Thought process is disorganized. Thought content, no suicidal or homicidal ideations. ASSESSMENT: [place] I Delirium and cognitive impairment. AXIS II Deferred. AXIS III Electrolyte imbalance and pneumonia. AXIS IV Low. AXIS V Global assessment of functioning is 20. PLAN: 1. The patient will be started on olanzapine 2.5 mg every four hours p.r.n. for anxiety and agitation. 2. Treat the underlying cause of infection and electrolyte imbalance correction. 3. We will continue to follow and readjust the medication. Leo Crain M.D. DR: IAIN JOB#: [id number] CC:
--- NOTE | 2017-01-28 23:00 | Cardiology Progress Note ---
Assessment/Plan Assessment/Plan 1. Dyspnea likely due to bilateral pneumonia, pulmonary toilet, IV ABx, hydration and O2 therapy, 2d echo reveals normal LV systolic function. 2. Hx of CAD, ? details, stable with no ECG ischemic features 3. Hx of HTN 4. Hx of DM 5. Khalida disease Objective Last 24 Hour Vital Signs Date Time Temp Pulse Resp B/P Pulse Ox O2 Delivery O2 Flow Rate FiO2 01/28/17 20:00 97.8 76 23 110/64 92 Nasal Cannula 2.0 28 01/28/17 16:00 77 01/28/17 16:00 92 Nasal Cannula 2.0 28 01/28/17 16:00 97.4 73 23 105/64 92 Nasal Cannula 2.0 01/28/17 16:00 Nasal Cannula 2.0 28 01/28/17 12:00 98.5 71 20 94/53 96 Nasal Cannula 5.0 01/28/17 12:00 79 01/28/17 08:00 97.4 65 19 97/59 99 Nasal Cannula 5.0 01/28/17 08:00 73 01/28/17 04:00 73 01/28/17 04:00 98.0 72 20 95/50 94 Room Air 01/28/17 00:00 98.0 71 20 90/57 100 Nasal Cannula 3.0 01/28/17 00:00 74 Intake and Output 01/27/17 01/28/17 19:00 07:00 Intake Total 2060 ml 477.416 ml Output Total 800 ml Balance 2060 ml -322.584 ml Intake Oral 0 ml IV Total 2060 ml 477.416 ml Output Urine Total 800 ml # Bowel Movements 2 2 2D Echo: Normal LVEF, RVSP 28 mmHg Laboratory Tests Test 01/28/17 03:00 White Blood Count 2.6 K/UL (4.8-10.8) L Red Blood Count 2.86 M/UL (4.70-6.10) L Hemoglobin 9.1 G/DL (14.2-18.0) L Hematocrit 27.1 % (42.0-52.0) L Mean Corpuscular Volume 95 FL (80-99) Mean Corpuscular Hemoglobin 31.7 PG (27.0-31.0) H Mean Corpuscular Hemoglobin Concent 33.4 G/DL (32.0-36.0) Red Cell Distribution Width 13.5 % (11.6-14.8) Platelet Count 301 K/UL (150-450) Mean Platelet Volume 5.4 FL (6.5-10.1) L Neutrophils (%) (Auto) % (45.0-75.0) Lymphocytes (%) (Auto) % (20.0-45.0) Monocytes (%) (Auto) % (1.0-10.0) Eosinophils (%) (Auto) % (0.0-3.0) Basophils (%) (Auto) % (0.0-2.0) Differential Total Cells Counted 100 Neutrophils % (Manual) 65 % (45-75) Lymphocytes % (Manual) 26 % (20-45) Monocytes % (Manual) 4 % (1-10) Eosinophils % (Manual) 0 % (0-3) Basophils % (Manual) 1 % (0-2) Band Neutrophils 4 % (0-8) Platelet Estimate Adequate Platelet Morphology Normal Hypochromasia 2+ Spherocytes 1+ Sodium Level 128 mEQ/L (135-145) L Potassium Level 3.7 mEQ/L (3.4-4.9) Chloride Level 89 mEQ/L (98-107) L Carbon Dioxide Level 28 mEQ/L (20-30) Anion Gap 11 (5-15) Blood Urea Nitrogen 12 mg/dL (7-23) Creatinine 0.3 mg/dL (0.7-1.2) L Estimat Glomerular Filtration Rate > 60 mL/min (>60) Glucose Level 74 mg/dL (74-106) Hemoglobin A1c 4.5 % (< 6.0) Plasma/Serum Osmolality Pending Uric Acid 2.1 mg/dL (3.0-7.5) L Calcium Level 8.0 mg/dL (8.6-10.2) L Phosphorus Level 3.8 mg/dL (2.5-4.8) Magnesium Level 1.8 mg/dL (1.7-2.5) Iron Level 14 ug/dL (59-158) L Total Iron Binding Capacity 160 ug/dL (250-400) L Percent Iron Saturation 9 % (15-50) L Unsaturated Iron Binding 146 ug/dL (112-346) Ferritin 362 ng/mL (10-230) H Total Bilirubin 0.3 mg/dL (0.0-1.2) Gamma Glutamyl Transpeptidase 12 U/L (8-61) Aspartate Amino Transf (AST/SGOT) 29 U/L (5-40) Alanine Aminotransferase (ALT/SGPT) 13 U/L (3-41) Alkaline Phosphatase 39 U/L (40-129) L C-Reactive Protein, Quantitative 10.5 mg/dL (< 0.5) H Pro-B-Type Natriuretic Peptide 672 pg/mL (0-125) H Total Protein 6.0 g/dL (6.6-8.7) L Albumin 2.3 g/dL (3.5-5.2) L Globulin 3.7 g/dL Albumin/Globulin Ratio 0.6 (1.0-2.7) L Triglycerides Level 55 mg/dL (< 150) Cholesterol Level 55 mg/dL (< 200) LDL Cholesterol 30 mg/dL (60-99) L HDL Cholesterol 14 mg/dL (> 60) Cholesterol/HDL Ratio 3.9 (3.3-4.4) Vitamin B12 Level 1280 pg/mL (211-946) H Folate Pending Thyroid Stimulating Hormone (TSH) 1.740 uIU/mL (0.300-4.500) HIV (1&2) Antibody Rapid Negative (NEGATIVE) Microbiology Date/Time Source Procedure Growth Status 01/27/17 22:30 Sacral Wound Gram Stain - Final Resulted 01/27/17 22:30 Sacral Wound Wound Culture Pending Resulted Objective HEENT: Normocephalic and atraumatic. Pupils reactive to light. Dry oral mucosa. No ulceration or exudate. NECK: No JVD, no carotid bruit, carotid upstroke 2+ B/L CARDIOVASCULAR: Normal S1S2, Regular, rate and rhythm. No murmurs, gallops or rubs. LUNGS: Diminished BS both lungs, crackles on the right base ABDOMEN: Soft, nontender, and nondistended. G-tube site looks intact. EXTREMITIES: No edema clubbing or cyanosis. BEAU JC Jan 28, 2017 23:00
[2017-01-29] VITALS: BP 100/72
[2017-01-29] MEDS: OLANZapine 2.5mg tab GT PRN (00:19)
[2017-01-29 02:48] LABS: ALANINE AMINOTRANSFERASE 17 U/L (3-41); ALBUMIN/GLOBULIN RATIO 0.6 (1.0-2.7); ANION GAP 13 (5-15); ASPARTATE AMINO TRANSFERASE 37 U/L (5-40); CARBON DIOXIDE 27 mEQ/L (20-30); CHLORIDE 97 mEQ/L (98-107); CREATININE 0.3 mg/dL (0.7-1.2); GLOMERULAR FILTRATION RATE > 60 mL/min (>60); HEMOLYSIS 0; MAGNESIUM 1.5 mg/dL (1.7-2.5); PHOSPHORUS 3.5 mg/dL (2.5-4.8); POTASSIUM 3.7 mEQ/L (3.4-4.9); SODIUM 137 mEQ/L (135-145); TOTAL PROTEIN 6.2 g/dL (6.6-8.7)
[2017-01-29 03:02] LABS: BASOPHILS % (AUTO) 0.8 % (0.0-2.0); MEAN CORPUSCULAR HEMOGLOBIN 31.5 PG (27.0-31.0); MEAN CORPUSCULAR HGB CONC 33.8 G/DL (32.0-36.0); MEAN CORPUSCULAR VOLUME 93 FL (80-99); MEAN PLATELET VOLUME 5.3 FL (6.5-10.1); MONOCYTES % (AUTO) 7.3 % (1.0-10.0); NEUTROPHILS % (AUTO) 65.9 % (45.0-75.0); PLATELET COUNT 345 K/UL (150-450); RED BLOOD COUNT 2.92 M/UL (4.70-6.10); RED CELL DISTRIBUTION WIDTH 13.2 % (11.6-14.8); WHITE BLOOD COUNT 4.2 K/UL (4.8-10.8)
[2017-01-29] MEDS: Vancomycin 1 GM in D5W 275 ML IVPB SCH ×2 (03:38→15:13)
[2017-01-29 04:00] VITALS: BP 101/72
[2017-01-29 06:01] LABS: URIC ACID 2.8 mg/dL (3.0-7.5)
[2017-01-29] MEDS: Piperacillin/Tazobactam 3.375 GM in NS 110 ML IVPB SCH ×3 (06:06→23:10)
[2017-01-29 08:00] VITALS: BP 92/65
[2017-01-29] MEDS: Midodrine 10mg tab GT SCH ×3 (08:33→18:27)
[2017-01-29] MEDS: Pantoprazole Inj IVP SCH (08:33)
[2017-01-29] MEDS: Aspirin Baby 81mg GT SCH (08:33)
[2017-01-29] MEDS: KCl 10% 20 mEq/15ml liquid GT SCH (08:33)
--- NOTE | 2017-01-29 09:19 | Cardiology Report ---
APPROVED REPORT EXAM: Two-dimensional and M-mode echocardiogram with Doppler and color Doppler. INDICATION SOB Technically difficult study due to poor acoustic windows. Limited study due to lack of apical windows. Study quality precludes accurate assessment of regional wall motion. Normal left ventricular chamber size, systolic function and wall motion. Left ventricular ejection fraction estimated to be 55-60% to extend visualized. No evidence of left ventricular hypertrophy. No evidence of pericardial fat or effusion. Focal aortic valve sclerosis with adequate cusp excursion Thickened mitral valve leaflets with normal excursion. Mitral annulus and aortic root calcification. Pulmonic valve not well visualized. Normal tricuspid valve structure. IVC is normal in size with physiologic collapse. A color flow and spectral Doppler study was performed and revealed: Tricuspid systolic velocities suggests peak right ventricular systolic pressure of 28 mmHg
[2017-01-29] MEDS ORDERED: NS 275ml ONE (09:50)
[2017-01-29] MEDS ORDERED: Tubing IV Secondary IV ONE (09:50)
--- NOTE | 2017-01-29 11:18 | General Progress Note ---
Assessment/Plan Problem List: (1) Sepsis ICD Codes: A41.9 - Sepsis, unspecified organism SNOMED: 38432388 (2) Sacral pressure ulcer ICD Codes: L89.159 - Pressure ulcer of sacral region, unspecified stage SNOMED: 384098629 (3) Khalida disease ICD Codes: G10 - [place]uda's disease SNOMED: 09299765 (4) Hyponatremia ICD Codes: E87.1 - Hypo-osmolality and hyponatremia SNOMED: 27131895 (5) Pneumonia ICD Codes: J18.9 - Pneumonia, unspecified organism SNOMED: 346571482 (6) Weakness generalized ICD Codes: R53.1 - Weakness SNOMED: 86265650 Status: unchanged Assessment/Plan afebrile vitals stable no wheezing hyponatremia sacral decub .i have consulted dr garcia for this purpose sepsis Subjective ROS Limited/Unobtainable: Yes Constitutional: Reports: no symptoms Allergies: Coded Allergies: No Known Allergies (Unverified , 10/23/14) Objective Last 24 Hour Vital Signs Date Time Temp Pulse Resp B/P Pulse Ox O2 Delivery O2 Flow Rate FiO2 01/29/17 08:00 97.8 67 18 92/65 94 Nasal Cannula 2.0 28 01/29/17 07:54 74 01/29/17 04:00 97.8 80 23 101/72 92 Nasal Cannula 2.0 28 01/29/17 03:43 67 01/29/17 00:00 78 01/29/17 00:00 97.8 80 23 100/72 92 Nasal Cannula 2.0 28 01/28/17 20:00 97.8 76 23 110/64 92 Nasal Cannula 2.0 28 01/28/17 16:00 77 01/28/17 16:00 92 Nasal Cannula 2.0 28 01/28/17 16:00 97.4 73 23 105/64 92 Nasal Cannula 2.0 01/28/17 16:00 Nasal Cannula 2.0 28 01/28/17 12:00 98.5 71 20 94/53 96 Nasal Cannula 5.0 01/28/17 12:00 79 Intake and Output 01/28/17 01/29/17 19:00 07:00 Intake Total 399 ml 502.5 ml Output Total 500 ml 1500 ml Balance -101 ml -997.5 ml Intake Oral 0 ml Free Water 50 ml IV Total 399 ml 392.5 ml Tube Feeding 60 ml Output Urine Total 500 ml 1500 ml # Bowel Movements 2 1 Laboratory Tests 01/29/17 02:05: White Blood Count 4.2#L, Red Blood Count 2.92L, Hemoglobin 9.2L, Hematocrit 27.2L, Mean Corpuscular Volume 93, Mean Corpuscular Hemoglobin 31.5H, Mean Corpuscular Hemoglobin Concent 33.8, Red Cell Distribution Width 13.2, Platelet Count 345, Mean Platelet Volume 5.3L, Neutrophils (%) (Auto) 65.9, Lymphocytes ( %) (Auto) 24.0, Monocytes (%) (Auto) 7.3, Eosinophils (%) (Auto) 2.0, Basophils (%) (Auto) 0.8, Sodium Level 137, Potassium Level 3.7, Chloride Level 97L, Carbon Dioxide Level 27, Anion Gap 13, Blood Urea Nitrogen 13, Creatinine 0.3L, Estimat Glomerular Filtration Rate > 60, Glucose Level 72L, Uric Acid 2.8L, Calcium Level 8.0L, Phosphorus Level 3.5, Magnesium Level 1.5L, Total Bilirubin 0.2, Aspartate Amino Transf (AST/SGOT) 37, Alanine Aminotransferase (ALT/SGPT) 17, Alkaline Phosphatase 40, Total Protein 6.2L, Albumin 2.4L, Globulin 3.8, Albumin/Globulin Ratio 0.6L, Vancomycin Level Trough 15.3H, Hepatitis A IgM Antibody [Pending], Hepatitis B Surface Antigen [Pending], Hepatitis B Core IgM Antibody [Pending], Hepatitis C Antibody [Pending] Height (Feet): 5 Height (Inches): 9.00 Weight (Pounds): 120 General Appearance: confused EENT: PERRL/EOMI Cardiovascular: normal rate Respiratory/Chest: lungs clear Abdomen: soft Kyle Nieves MD Jan 29, 2017 11:18
[2017-01-29 12:00] VITALS: BP 95/60
--- NOTE | 2017-01-29 12:30 | Infectious Diseases Prog Note ---
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 , continue supportive care, consult neurology (5) Ear abrasion Assessment & Plan: recommend , ENT eval and offloading, with local wound care Subjective ROS Limited/Unobtainable: Yes Allergies: Coded Allergies: No Known Allergies (Unverified , 10/23/14) Subjective he is demented, mildely agitated, in bed, afebrile Objective Vital Signs Last 24 Hour Vital Signs Date Time Temp Pulse Resp B/P Pulse Ox O2 Delivery O2 Flow Rate FiO2 01/29/17 12:00 98.5 71 18 95/60 93 Nasal Cannula 2.0 01/29/17 08:00 97.8 67 18 92/65 94 Nasal Cannula 2.0 28 01/29/17 07:54 74 01/29/17 04:00 97.8 80 23 101/72 92 Nasal Cannula 2.0 28 01/29/17 03:43 67 01/29/17 00:00 78 01/29/17 00:00 97.8 80 23 100/72 92 Nasal Cannula 2.0 28 01/28/17 20:00 97.8 76 23 110/64 92 Nasal Cannula 2.0 28 01/28/17 16:00 77 01/28/17 16:00 92 Nasal Cannula 2.0 28 01/28/17 16:00 97.4 73 23 105/64 92 Nasal Cannula 2.0 01/28/17 16:00 Nasal Cannula 2.0 28 Height (Feet): 5 Height (Inches): 9.00 Weight (Pounds): 120 General Appearance: WD/WN, no acute distress HEENT: normocephalic, atraumatic, anicteric Respiratory/Chest: chest wall non-tender, no respiratory distress, no accessory muscle use, decreased breath sounds, crackles/rales Cardiovascular: normal peripheral pulses, normal rate, regular rhythm Abdomen: normal bowel sounds, soft, non tender, no organomegaly, non distended , no mass Extremities: no cyanosis, no clubbing Skin: ulcers Microbiology Date/Time Source Procedure Growth Status 01/27/17 11:30 Blood Blood Culture - Preliminary NO GROWTH AFTER 24 HOURS Resulted 01/27/17 11:30 Blood Blood Culture - Preliminary NO GROWTH AFTER 24 HOURS Resulted 01/27/17 22:30 Sacral Wound Gram Stain - Final Resulted 01/27/17 22:30 Sacral Wound Wound Culture Pending Resulted 01/27/17 13:30 Rectum VRE Culture - Final Enterococcus Faecalis - Vre Complete Laboratory Tests Test 01/29/17 02:05 White Blood Count 4.2 K/UL (4.8-10.8) #L Red Blood Count 2.92 M/UL (4.70-6.10) L Hemoglobin 9.2 G/DL (14.2-18.0) L Hematocrit 27.2 % (42.0-52.0) L Mean Corpuscular Volume 93 FL (80-99) Mean Corpuscular Hemoglobin 31.5 PG (27.0-31.0) H Mean Corpuscular Hemoglobin Concent 33.8 G/DL (32.0-36.0) Red Cell Distribution Width 13.2 % (11.6-14.8) Platelet Count 345 K/UL (150-450) Mean Platelet Volume 5.3 FL (6.5-10.1) L Neutrophils (%) (Auto) 65.9 % (45.0-75.0) Lymphocytes (%) (Auto) 24.0 % (20.0-45.0) Monocytes (%) (Auto) 7.3 % (1.0-10.0) Eosinophils (%) (Auto) 2.0 % (0.0-3.0) Basophils (%) (Auto) 0.8 % (0.0-2.0) Sodium Level 137 mEQ/L (135-145) Potassium Level 3.7 mEQ/L (3.4-4.9) Chloride Level 97 mEQ/L (98-107) L Carbon Dioxide Level 27 mEQ/L (20-30) Anion Gap 13 (5-15) Blood Urea Nitrogen 13 mg/dL (7-23) Creatinine 0.3 mg/dL (0.7-1.2) L Estimat Glomerular Filtration Rate > 60 mL/min (>60) Glucose Level 72 mg/dL (74-106) L Uric Acid 2.8 mg/dL (3.0-7.5) L Calcium Level 8.0 mg/dL (8.6-10.2) L Phosphorus Level 3.5 mg/dL (2.5-4.8) Magnesium Level 1.5 mg/dL (1.7-2.5) L Total Bilirubin 0.2 mg/dL (0.0-1.2) Aspartate Amino Transf (AST/SGOT) 37 U/L (5-40) Alanine Aminotransferase (ALT/SGPT) 17 U/L (3-41) Alkaline Phosphatase 40 U/L (40-129) Total Protein 6.2 g/dL (6.6-8.7) L Albumin 2.4 g/dL (3.5-5.2) L Globulin 3.8 g/dL Albumin/Globulin Ratio 0.6 (1.0-2.7) L Vancomycin Level Trough 15.3 ug/mL (5.0-12.0) H Hepatitis A IgM Antibody Pending Hepatitis B Surface Antigen Pending Hepatitis B Core IgM Antibody Pending Hepatitis C Antibody Pending Current Medications Medications (Trade) Dose Ordered Sig/Poornima Route PRN Reason Start Time Stop Time Status Last Admin Dose Admin Aspirin (ASA) 81 mg DAILY GT 01/28/17 09:00 02/27/17 08:59 01/29/17 08:33 Furosemide (Lasix) 10 mg EVERY 6 HOURS IV 01/28/17 18:00 02/27/17 17:59 01/29/17 12:12 Midodrine (Pro-Amatine) 10 mg THREE TIMES A DAY GT 01/28/17 13:00 02/27/17 12:59 01/29/17 12:12 Olanzapine (ZyPREXA) 2.5 mg Q4H PRN GT Agitation 01/28/17 16:15 02/27/17 16:14 01/29/17 00:19 Pantoprazole (Protonix) 40 mg DAILY IVP 01/29/17 09:00 02/28/17 08:59 01/29/17 08:33 Piperacillin Sod/ Tazobactam Sod/ Sodium Chloride (Zosyn/Sodium Chloride) 110 ml @ 27.5 mls/hr Q8HR IVPB 01/28/17 15:00 02/04/17 14:59 01/29/17 06:06 Potassium Chloride (KCl 10% 20 mEq oral solution) 20 meq DAILY GT 01/28/17 14:00 02/27/17 13:59 01/29/17 08:33 Vancomycin HCl 1 ea 1 ea DAILY PRN MISC PER RX PROTOCOL 01/28/17 14:00 02/27/17 13:59 Vancomycin HCl/ Dextrose (Vancomycin/D5W) 275 ml @ 183.708 mls/hr Q12HR@0330,1530 IVPB 01/27/17 15:30 02/01/17 15:29 01/29/17 03:38 Joe Allen M.D. Jan 29, 2017 12:30
--- NOTE | 2017-01-29 15:05 | General Progress Note ---
Assessment/Plan Status: stable Status Narrative Na higher Assessment/Plan HypoNatremia- depletional vs SIADH- DM, Proteinuria Pneumonia- PH: 1. History of hypertension. 2. Khalida's disease. 3. Psychosis. 4. Hyperlipidemia. 5. Diabetes. 6. Mood disorder. 7. Benign prostatic hypertrophy. Plan: start feeding IV lasix Midodrin 3% saline- prn gastric support- Monitor Lytes- Keep BP and BS in check Subjective ROS Limited/Unobtainable: No Constitutional: Reports: malaise Allergies: Coded Allergies: No Known Allergies (Unverified , 10/23/14) Objective Last 24 Hour Vital Signs Date Time Temp Pulse Resp B/P Pulse Ox O2 Delivery O2 Flow Rate FiO2 01/29/17 12:50 72 01/29/17 12:00 98.5 71 18 95/60 93 Nasal Cannula 2.0 01/29/17 08:00 97.8 67 18 92/65 94 Nasal Cannula 2.0 28 01/29/17 07:54 74 01/29/17 04:00 97.8 80 23 101/72 92 Nasal Cannula 2.0 28 01/29/17 03:43 67 01/29/17 00:00 78 01/29/17 00:00 97.8 80 23 100/72 92 Nasal Cannula 2.0 28 01/28/17 20:00 97.8 76 23 110/64 92 Nasal Cannula 2.0 28 01/28/17 16:00 77 01/28/17 16:00 92 Nasal Cannula 2.0 28 01/28/17 16:00 97.4 73 23 105/64 92 Nasal Cannula 2.0 01/28/17 16:00 Nasal Cannula 2.0 28 Intake and Output 01/28/17 01/29/17 19:00 07:00 Intake Total 399 ml 502.5 ml Output Total 500 ml 1500 ml Balance -101 ml -997.5 ml Intake Oral 0 ml Free Water 50 ml IV Total 399 ml 392.5 ml Tube Feeding 60 ml Output Urine Total 500 ml 1500 ml # Bowel Movements 2 1 Laboratory Tests 01/29/17 02:05: White Blood Count 4.2#L, Red Blood Count 2.92L, Hemoglobin 9.2L, Hematocrit 27.2L, Mean Corpuscular Volume 93, Mean Corpuscular Hemoglobin 31.5H, Mean Corpuscular Hemoglobin Concent 33.8, Red Cell Distribution Width 13.2, Platelet Count 345, Mean Platelet Volume 5.3L, Neutrophils (%) (Auto) 65.9, Lymphocytes ( %) (Auto) 24.0, Monocytes (%) (Auto) 7.3, Eosinophils (%) (Auto) 2.0, Basophils (%) (Auto) 0.8, Sodium Level 137, Potassium Level 3.7, Chloride Level 97L, Carbon Dioxide Level 27, Anion Gap 13, Blood Urea Nitrogen 13, Creatinine 0.3L, Estimat Glomerular Filtration Rate > 60, Glucose Level 72L, Uric Acid 2.8L, Calcium Level 8.0L, Phosphorus Level 3.5, Magnesium Level 1.5L, Total Bilirubin 0.2, Aspartate Amino Transf (AST/SGOT) 37, Alanine Aminotransferase (ALT/SGPT) 17, Alkaline Phosphatase 40, Total Protein 6.2L, Albumin 2.4L, Globulin 3.8, Albumin/Globulin Ratio 0.6L, Vancomycin Level Trough 15.3H, Hepatitis A IgM Antibody [Pending], Hepatitis B Surface Antigen [Pending], Hepatitis B Core IgM Antibody [Pending], Hepatitis C Antibody [Pending] Height (Feet): 5 Height (Inches): 9.00 Weight (Pounds): 120 General Appearance: mild distress Cardiovascular: normal rate Respiratory/Chest: decreased breath sounds Abdomen: soft Objective no change in PE SHILOH HUTSON Jan 29, 2017 15:05
[2017-01-29 16:00] VITALS: BP 108/61
--- NOTE | 2017-01-29 17:24 | Neurology Progress Note ---
Interim History Interim History Interim History Mr. Murray feels well.. He is still very sparse with his words. His choreoathetotic movements continues to be more robust. He denies any pain or discomfort. He continues to be cognitively impoverished and weak. Review of Systems Neuro Review of Systems Benign. Objective Physical Exam Last Vital Signs Date Time Temp Pulse Resp B/P Pulse Ox O2 Delivery O2 Flow Rate FiO2 01/29/17 16:00 97.3 71 18 108/61 91 Nasal Cannula 2.0 01/29/17 08:00 28 Laboratory Tests Test 01/29/17 02:05 White Blood Count 4.2 K/UL (4.8-10.8) #L Red Blood Count 2.92 M/UL (4.70-6.10) L Hemoglobin 9.2 G/DL (14.2-18.0) L Hematocrit 27.2 % (42.0-52.0) L Mean Corpuscular Volume 93 FL (80-99) Mean Corpuscular Hemoglobin 31.5 PG (27.0-31.0) H Mean Corpuscular Hemoglobin Concent 33.8 G/DL (32.0-36.0) Red Cell Distribution Width 13.2 % (11.6-14.8) Platelet Count 345 K/UL (150-450) Mean Platelet Volume 5.3 FL (6.5-10.1) L Neutrophils (%) (Auto) 65.9 % (45.0-75.0) Lymphocytes (%) (Auto) 24.0 % (20.0-45.0) Monocytes (%) (Auto) 7.3 % (1.0-10.0) Eosinophils (%) (Auto) 2.0 % (0.0-3.0) Basophils (%) (Auto) 0.8 % (0.0-2.0) Sodium Level 137 mEQ/L (135-145) Potassium Level 3.7 mEQ/L (3.4-4.9) Chloride Level 97 mEQ/L (98-107) L Carbon Dioxide Level 27 mEQ/L (20-30) Anion Gap 13 (5-15) Blood Urea Nitrogen 13 mg/dL (7-23) Creatinine 0.3 mg/dL (0.7-1.2) L Estimat Glomerular Filtration Rate > 60 mL/min (>60) Glucose Level 72 mg/dL (74-106) L Uric Acid 2.8 mg/dL (3.0-7.5) L Calcium Level 8.0 mg/dL (8.6-10.2) L Phosphorus Level 3.5 mg/dL (2.5-4.8) Magnesium Level 1.5 mg/dL (1.7-2.5) L Total Bilirubin 0.2 mg/dL (0.0-1.2) Aspartate Amino Transf (AST/SGOT) 37 U/L (5-40) Alanine Aminotransferase (ALT/SGPT) 17 U/L (3-41) Alkaline Phosphatase 40 U/L (40-129) Total Protein 6.2 g/dL (6.6-8.7) L Albumin 2.4 g/dL (3.5-5.2) L Globulin 3.8 g/dL Albumin/Globulin Ratio 0.6 (1.0-2.7) L Vancomycin Level Trough 15.3 ug/mL (5.0-12.0) H Hepatitis A IgM Antibody Pending Hepatitis B Surface Antigen Pending Hepatitis B Core IgM Antibody Pending Hepatitis C Antibody Pending Neurologic Exam Objective PHYSICAL EXAMINATION: GENERAL: He is a well-developed, but lean and cachectic-looking gentleman, lying in bed, in a position. HEAD: Normocephalic and atraumatic. EENT: Examination benign. NECK: No neck rigidity was observed. NEUROLOGICAL EXAMINATION: MENTAL STATUS EXAMINATION: He was awake and alert. He was oriented to self only. He had no idea of where he was or what the date was. He was unable to cooperate for further mental status testing. SPEECH: He had a moderate dysarthria. LANGUAGE: He had problems with comprehension and expression of language. CRANIAL NERVE EXAMINATION: II: He did blink to threat in all dimas. He, however, was unable to cooperate for confrontation testing and in addition was also unable to count fingers. III, IV & : The external ocular movements were full and the pupils 3 mm in diameter, equal, round, regular, and reactive to light. V: He had normal facial sensations and the temporales, masseters, and pterygoids functioned normally. VII: He had normal facial expressions and no facial asymmetry. VIII: He was able to hear and had no nystagmus. IX: The palate moved symmetrically on phonation. X: He had no hoarseness of voice. XI: The sternocleidomastoids and trapezii functioned normally. XII: The tongue was in the midline without any fasciculations or atrophy. MOTOR SYSTEM: The tone was increased in all four extremities with spasticity. Examination of muscle mass revealed severe generalized muscle wasting involving the lower extremities more than the upper extremities. Examination of power was impossible to perform on individual muscle groups. He had a significant quadriparesis involving the lower extremities more than the upper extremities. SENSORY EXAMINATION: He responded appropriately to deep pain. He was unable to cooperate for other sensory modalities. REFLEXES: 1+ and bilaterally symmetrical at the biceps, triceps, brachioradialis , and knees and 0 at both ankles. The plantar responses were flexor bilaterally. COORDINATION, STANCE & GAIT: Could not be tested. ABNORMAL MOVEMENTS: He exhibited choreoathetotic movements involving all his extremities and the facial muscles. In addition, he also exhibited constant bruxism. Impression/Recommendations Diagnostic Impression 1. Mr. Reece Murray is a 61-year-old, gentleman, of unknown handedness, who has a long history of Evangeline's disease, who was hospitalized for "a change in mental state and generalized weakness." 2. He feels well today. He continues to exhibit choreoathetotic movements that are more robust. He continues to be cognitively impoverished and weak. 3. On neurological examination, at this time, he does demonstrate global cerebral dysfunction. He is oriented to self only and is unable to cooperate for further mental status testing. He also demonstrates generalized weakness and generalized wasting of the muscles. His deep tendon reflexes are globally diminished. He, in addition, exhibits choreoathetotic movements of all his extremities and facial muscles. 4. Laboratory data on initial evaluation revealed that he was significantly hyponatremic with a sodium of 127. His CK was elevated to 226. He was significantly hypoalbuminemic with an albumin of 2.6. His CBC revealed that he is anemic with a hemoglobin of 10.4 and his urinalysis revealed 1+ leukocyte esterase, 0 to 2 red blood cells per high-power field, 2 to 4 white blood cells per high-power field, and a few urinary bacteria. 5. His B12 and TSH are normal. 6. 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 Recommendations 1. Continue present management. 2. Aggressive treatment of the patient's infectious process. 3. Correction of the patient's metabolic dysfunction. 4. Observe closely. Garrison Reid M.D., M.S.P.Jamie. GARRISON REID Jan 29, 2017 17:23
--- NOTE | 2017-01-29 17:52 | General Progress Note ---
Assessment/Plan Assessment/Plan Hematology Progress Note ASSESSMENT: 1. Anemia 2/2 iron deficiency. 2. Decreased Hgb and hematocrit, r/o GI bleed. 3. Hyponatremia- now improved. 4. Hypertension. 5. Acute exacerbation of chronic encephalopathy. 6. Sepsis with sacral decubitis ulcerations. 7. Psychiatric history. RECS: 1. Monitor counts. 2. Anemia workup has been ordered- pt had low iron, given IV iron. 3. Hb goals above 7. 4. Peripheral smear to be reviewed. 5. Medications reviewed. Potential culprits include Depakote; however, the patient has been on this for long period of time. 6. Abx per ID service. 7. Appreciate neurology as well as ID recommendations. 8. Discussed with staff. Subjective Constitutional: Reports: no symptoms HEENT: Reports: no symptoms Cardiovascular: Reports: no symptoms Respiratory: Reports: no symptoms Gastrointestinal/Abdominal: Reports: no symptoms Genitourinary: Reports: no symptoms Neurologic/Psychiatric: Reports: no symptoms Endocrine: Reports: no symptoms Hematologic/Lymphatic: Reports: anemia Allergies: Coded Allergies: No Known Allergies (Unverified , 10/23/14) Subjective NAD, no fevers chills, night sweats, no hemopytsis, no hematemesis Objective Last 24 Hour Vital Signs Date Time Temp Pulse Resp B/P Pulse Ox O2 Delivery O2 Flow Rate FiO2 01/29/17 16:00 97.3 71 18 108/61 91 Nasal Cannula 2.0 01/29/17 12:50 72 01/29/17 12:00 98.5 71 18 95/60 93 Nasal Cannula 2.0 01/29/17 08:00 97.8 67 18 92/65 94 Nasal Cannula 2.0 28 01/29/17 07:54 74 01/29/17 04:00 97.8 80 23 101/72 92 Nasal Cannula 2.0 28 01/29/17 03:43 67 01/29/17 00:00 78 01/29/17 00:00 97.8 80 23 100/72 92 Nasal Cannula 2.0 28 01/28/17 20:00 97.8 76 23 110/64 92 Nasal Cannula 2.0 28 Intake and Output 01/28/17 01/29/17 19:00 07:00 Intake Total 399 ml 502.5 ml Output Total 500 ml 1500 ml Balance -101 ml -997.5 ml Intake Oral 0 ml Free Water 50 ml IV Total 399 ml 392.5 ml Tube Feeding 60 ml Output Urine Total 500 ml 1500 ml # Bowel Movements 2 1 Laboratory Tests 01/29/17 02:05: White Blood Count 4.2#L, Red Blood Count 2.92L, Hemoglobin 9.2L, Hematocrit 27.2L, Mean Corpuscular Volume 93, Mean Corpuscular Hemoglobin 31.5H, Mean Corpuscular Hemoglobin Concent 33.8, Red Cell Distribution Width 13.2, Platelet Count 345, Mean Platelet Volume 5.3L, Neutrophils (%) (Auto) 65.9, Lymphocytes ( %) (Auto) 24.0, Monocytes (%) (Auto) 7.3, Eosinophils (%) (Auto) 2.0, Basophils (%) (Auto) 0.8, Sodium Level 137, Potassium Level 3.7, Chloride Level 97L, Carbon Dioxide Level 27, Anion Gap 13, Blood Urea Nitrogen 13, Creatinine 0.3L, Estimat Glomerular Filtration Rate > 60, Glucose Level 72L, Uric Acid 2.8L, Calcium Level 8.0L, Phosphorus Level 3.5, Magnesium Level 1.5L, Total Bilirubin 0.2, Aspartate Amino Transf (AST/SGOT) 37, Alanine Aminotransferase (ALT/SGPT) 17, Alkaline Phosphatase 40, Total Protein 6.2L, Albumin 2.4L, Globulin 3.8, Albumin/Globulin Ratio 0.6L, Vancomycin Level Trough 15.3H, Hepatitis A IgM Antibody [Pending], Hepatitis B Surface Antigen [Pending], Hepatitis B Core IgM Antibody [Pending], Hepatitis C Antibody [Pending] Height (Feet): 5 Height (Inches): 9.00 Weight (Pounds): 120 General Appearance: confused EENT: normal ENT inspection Neck: non-tender Cardiovascular: normal peripheral pulses Respiratory/Chest: chest wall non-tender Abdomen: normal bowel sounds Extremities: normal range of motion Edema: no edema noted Leg (L), no edema noted Leg (R), no edema noted Pedal (L) , no edema noted Pedal (R), no edema noted Generalized Neurologic: dye expert II-XII grossly normal Skin: warm/dry William Bradley Jan 29, 2017 17:52
[2017-01-29 20:06] VITALS: BP 109/67
--- NOTE | 2017-01-29 21:08 | Cardiology Progress Note ---
Assessment/Plan Assessment/Plan 1. Dyspnea likely due to bilateral pneumonia, pulmonary toilet, IV ABx, hydration and O2 therapy, 2d echo reveals normal LV systolic function. 2. Hypotension, agree with holding on diuretics, sodium is corrected well. 3. Hx of CAD, ? details, stable with no ECG ischemic features 4. Hx of HTN 5. Hx of DM 6. Khalida disease Subjective Subjective Sinus rhythm at 65 Objective Last 24 Hour Vital Signs Date Time Temp Pulse Resp B/P Pulse Ox O2 Delivery O2 Flow Rate FiO2 01/29/17 20:06 97.9 61 21 109/67 90 Nasal Cannula 5.0 01/29/17 17:18 69 01/29/17 16:00 97.3 71 18 108/61 91 Nasal Cannula 2.0 01/29/17 12:50 72 01/29/17 12:00 98.5 71 18 95/60 93 Nasal Cannula 2.0 01/29/17 08:00 97.8 67 18 92/65 94 Nasal Cannula 2.0 28 01/29/17 07:54 74 01/29/17 04:00 97.8 80 23 101/72 92 Nasal Cannula 2.0 28 01/29/17 03:43 67 01/29/17 00:00 78 01/29/17 00:00 97.8 80 23 100/72 92 Nasal Cannula 2.0 28 Intake and Output 01/28/17 01/29/17 19:00 07:00 Intake Total 399 ml 502.5 ml Output Total 500 ml 1500 ml Balance -101 ml -997.5 ml Intake Oral 0 ml Free Water 50 ml IV Total 399 ml 392.5 ml Tube Feeding 60 ml Output Urine Total 500 ml 1500 ml # Bowel Movements 2 1 2D Echo: Normal LVEF, RVSP 28 mmHg Laboratory Tests Test 01/29/17 02:05 White Blood Count 4.2 K/UL (4.8-10.8) #L Red Blood Count 2.92 M/UL (4.70-6.10) L Hemoglobin 9.2 G/DL (14.2-18.0) L Hematocrit 27.2 % (42.0-52.0) L Mean Corpuscular Volume 93 FL (80-99) Mean Corpuscular Hemoglobin 31.5 PG (27.0-31.0) H Mean Corpuscular Hemoglobin Concent 33.8 G/DL (32.0-36.0) Red Cell Distribution Width 13.2 % (11.6-14.8) Platelet Count 345 K/UL (150-450) Mean Platelet Volume 5.3 FL (6.5-10.1) L Neutrophils (%) (Auto) 65.9 % (45.0-75.0) Lymphocytes (%) (Auto) 24.0 % (20.0-45.0) Monocytes (%) (Auto) 7.3 % (1.0-10.0) Eosinophils (%) (Auto) 2.0 % (0.0-3.0) Basophils (%) (Auto) 0.8 % (0.0-2.0) Sodium Level 137 mEQ/L (135-145) Potassium Level 3.7 mEQ/L (3.4-4.9) Chloride Level 97 mEQ/L (98-107) L Carbon Dioxide Level 27 mEQ/L (20-30) Anion Gap 13 (5-15) Blood Urea Nitrogen 13 mg/dL (7-23) Creatinine 0.3 mg/dL (0.7-1.2) L Estimat Glomerular Filtration Rate > 60 mL/min (>60) Glucose Level 72 mg/dL (74-106) L Uric Acid 2.8 mg/dL (3.0-7.5) L Calcium Level 8.0 mg/dL (8.6-10.2) L Phosphorus Level 3.5 mg/dL (2.5-4.8) Magnesium Level 1.5 mg/dL (1.7-2.5) L Total Bilirubin 0.2 mg/dL (0.0-1.2) Aspartate Amino Transf (AST/SGOT) 37 U/L (5-40) Alanine Aminotransferase (ALT/SGPT) 17 U/L (3-41) Alkaline Phosphatase 40 U/L (40-129) Total Protein 6.2 g/dL (6.6-8.7) L Albumin 2.4 g/dL (3.5-5.2) L Globulin 3.8 g/dL Albumin/Globulin Ratio 0.6 (1.0-2.7) L Vancomycin Level Trough 15.3 ug/mL (5.0-12.0) H Hepatitis A IgM Antibody Pending Hepatitis B Surface Antigen Pending Hepatitis B Core IgM Antibody Pending Hepatitis C Antibody Pending Microbiology Date/Time Source Procedure Growth Status 01/27/17 11:30 Blood Blood Culture - Preliminary NO GROWTH AFTER 24 HOURS Resulted 01/27/17 11:30 Blood Blood Culture - Preliminary NO GROWTH AFTER 24 HOURS Resulted 01/27/17 22:30 Sacral Wound Gram Stain - Final Resulted 01/27/17 22:30 Sacral Wound Wound Culture Pending Resulted 01/27/17 13:30 Rectum VRE Culture - Final Enterococcus Faecalis - Vre Complete Objective HEENT: Normocephalic and atraumatic. Pupils reactive to light. Dry oral mucosa. No ulceration or exudate. NECK: No JVD, no carotid bruit, carotid upstroke 2+ B/L CARDIOVASCULAR: Normal S1S2, Regular, rate and rhythm. No murmurs, gallops or rubs. LUNGS: Diminished BS both lungs, crackles on the right base ABDOMEN: Soft, nontender, and nondistended. G-tube site looks intact. EXTREMITIES: No edema clubbing or cyanosis. BEAU JC Jan 29, 2017 21:08
[2017-01-30 00:06] VITALS: BP 127/69
[2017-01-30] MEDS: Vancomycin 1 GM in D5W 275 ML IVPB SCH ×3 (03:40→18:41)
[2017-01-30 03:59] VITALS: BP 129/63
[2017-01-30] MEDS: Piperacillin/Tazobactam 3.375 GM in NS 110 ML IVPB SCH ×3 (05:52→22:11)
[2017-01-30 08:00] VITALS: BP 112/68
[2017-01-30] MEDS: Midodrine 10mg tab GT SCH ×3 (08:25→17:01)
[2017-01-30] MEDS: Pantoprazole Inj IVP SCH (08:25)
[2017-01-30] MEDS: Aspirin Baby 81mg GT SCH (08:25)
[2017-01-30] MEDS: KCl 10% 20 mEq/15ml liquid GT SCH (08:26)
[2017-01-30] MEDS ORDERED: Sterile Water Irrig 1000ml IRRIG ONE (09:43)
[2017-01-30] MEDS ORDERED: Tubing IV Secondary IV ONE (09:43)
[2017-01-30] MEDS ORDERED: NS 275ml ONE (09:43)
--- NOTE | 2017-01-30 11:44 | Neurology Progress Note ---
Interim History Interim History Interim History Mr. Murray feels well. He is still very sparse with his words. His choreoathetotic movements continue at the same rate. He denies any pain or discomfort. He continues to be cognitively impoverished and generally weak. Review of Systems Neuro Review of Systems Benign. Objective Physical Exam Last Vital Signs Date Time Temp Pulse Resp B/P Pulse Ox O2 Delivery O2 Flow Rate FiO2 01/30/17 08:00 97.5 65 20 112/68 100 Nasal Cannula 5.0 01/29/17 19:30 32 Neurologic Exam Objective PHYSICAL EXAMINATION: GENERAL: He is a well-developed, but lean and cachectic-looking gentleman, lying in bed, in a position. HEAD: Normocephalic and atraumatic. EENT: Examination benign. NECK: No neck rigidity was observed. NEUROLOGICAL EXAMINATION: MENTAL STATUS EXAMINATION: He was awake and alert. He was oriented to self only. He had no idea of where he was or what the date was. He was unable to cooperate for further mental status testing. SPEECH: He had a moderate dysarthria. LANGUAGE: He had problems with comprehension and expression of language. CRANIAL NERVE EXAMINATION: II: He did blink to threat in all dimas. He, however, was unable to cooperate for confrontation testing and in addition was also unable to count fingers. III, IV & : The external ocular movements were full and the pupils 3 mm in diameter, equal, round, regular, and reactive to light. V: He had normal facial sensations and the temporales, masseters, and pterygoids functioned normally. VII: He had normal facial expressions and no facial asymmetry. VIII: He was able to hear and had no nystagmus. IX: The palate moved symmetrically on phonation. X: He had no hoarseness of voice. XI: The sternocleidomastoids and trapezii functioned normally. XII: The tongue was in the midline without any fasciculations or atrophy. MOTOR SYSTEM: The tone was increased in all four extremities with spasticity. Examination of muscle mass revealed severe generalized muscle wasting involving the lower extremities more than the upper extremities. Examination of power was impossible to perform on individual muscle groups. He had a significant quadriparesis involving the lower extremities more than the upper extremities. SENSORY EXAMINATION: He responded appropriately to deep pain. He was unable to cooperate for other sensory modalities. REFLEXES: 1+ and bilaterally symmetrical at the biceps, triceps, and brachioradialis. 2+ at both knees. 0 at both ankles. The plantar responses were flexor bilaterally. COORDINATION, STANCE & GAIT: Could not be tested. ABNORMAL MOVEMENTS: He exhibited choreoathetotic movements involving all his extremities and the facial muscles. In addition, he also exhibited constant bruxism. Impression/Recommendations Diagnostic Impression 1. Mr. Reece Murray is a 61-year-old, gentleman, of unknown handedness, who has a long history of Khalida's disease, who was hospitalized for "a change in mental state and generalized weakness." 2. He continues to feel well. He continues to exhibit choreoathetotic movements. He continues to be cognitively impoverished and weak. 3. On neurological examination, at this time, he does demonstrate global cerebral dysfunction. He is oriented to self only and is unable to cooperate for further mental status testing. He also demonstrates generalized weakness and generalized wasting of the muscles. His deep tendon reflexes are globally diminished. He, in addition, exhibits choreoathetotic movements of all his extremities and facial muscles. 4. Laboratory data on initial evaluation revealed that he was significantly hyponatremic with a sodium of 127. His CK was elevated to 226. He was significantly hypoalbuminemic with an albumin of 2.6. His CBC revealed that he is anemic with a hemoglobin of 10.4 and his urinalysis revealed 1+ leukocyte esterase, 0 to 2 red blood cells per high-power field, 2 to 4 white blood cells per high-power field, and a few urinary bacteria. 5. His B12 and TSH are normal. 6. 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 Recommendations 1. Continue present management. 2. Aggressive treatment of the patient's infectious process. 3. Correction of the patient's metabolic dysfunction. 4. Observe closely. Garrison Reid M.D., M.S.P.Jamie. GARRISON REID Jan 30, 2017 11:44
[2017-01-30 12:00] VITALS: BP 117/83
--- NOTE | 2017-01-30 12:02 | General Progress Note ---
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 SNOMED: 14492254 (4) Hyponatremia ICD Codes: E87.1 - Hypo-osmolality and hyponatremia SNOMED: 24051743 (5) Pneumonia ICD Codes: J18.9 - Pneumonia, unspecified organism SNOMED: 288676778 (6) Weakness generalized ICD Codes: R53.1 - Weakness SNOMED: 78314171 Status: progressing Assessment/Plan afebrile vitals stable sepsis and uti still more lethargic than baseline sacral decub.i&d per dr radha peñaloza roberta chorea Subjective ROS Limited/Unobtainable: Yes Constitutional: Reports: no symptoms Allergies: Coded Allergies: No Known Allergies (Unverified , 10/23/14) Objective Last 24 Hour Vital Signs Date Time Temp Pulse Resp B/P Pulse Ox O2 Delivery O2 Flow Rate FiO2 01/30/17 08:00 97.5 65 20 112/68 100 Nasal Cannula 5.0 01/30/17 07:26 91 01/30/17 03:59 97.3 88 20 129/63 99 Nasal Cannula 5.0 01/30/17 03:55 74 01/30/17 00:06 98.1 71 20 127/69 97 Nasal Cannula 5.0 01/30/17 00:00 92 01/29/17 20:06 97.9 61 21 109/67 90 Nasal Cannula 5.0 01/29/17 19:30 93 Nasal Cannula 3.0 32 01/29/17 19:30 Nasal Cannula 3.0 32 01/29/17 17:18 69 01/29/17 16:00 97.3 71 18 108/61 91 Nasal Cannula 2.0 01/29/17 12:50 72 Intake and Output 01/29/17 01/30/17 19:00 07:00 Intake Total 1015.416 ml 932.500 ml Output Total 1150 ml 800 ml Balance -134.584 ml 132.500 ml Free Water 50 ml IV Total 615.416 ml 402.500 ml Tube Feeding 400 ml 480 ml Output Urine Total 1150 ml 800 ml # Bowel Movements 1 Height (Feet): 5 Height (Inches): 9.00 Weight (Pounds): 120 General Appearance: confused Cardiovascular: normal rate Respiratory/Chest: lungs clear Kyle Nieves MD Jan 30, 2017 12:02
--- NOTE | 2017-01-30 12:52 | General Progress Note ---
Assessment/Plan Assessment/Plan Hematology Progress Note ASSESSMENT: 1. Anemia 2/2 iron deficiency. 2. Decreased Hgb and hematocrit, r/o GI bleed. 3. Hyponatremia- now improved. 4. Hypertension. 5. Acute exacerbation of chronic encephalopathy. 6. Sepsis with sacral decubitis ulcerations- on abx 7. Psychiatric history. RECS: 1. Monitor counts. 2. Anemia workup has been ordered- pt had low iron, given IV iron. 3. Hb goals above 7. 4. Peripheral smear to be reviewed. 5. Medications reviewed. Potential culprits include Depakote; however, the patient has been on this for long period of time. 6. Abx per ID service. 7. Appreciate neurology as well as ID recommendations. 8. Discussed with staff. Subjective ROS Limited/Unobtainable: Yes Constitutional: Reports: no symptoms HEENT: Reports: no symptoms Cardiovascular: Reports: no symptoms Respiratory: Reports: no symptoms Gastrointestinal/Abdominal: Reports: no symptoms Genitourinary: Reports: no symptoms Neurologic/Psychiatric: Reports: no symptoms Endocrine: Reports: no symptoms Hematologic/Lymphatic: Reports: anemia Allergies: Coded Allergies: No Known Allergies (Unverified , 10/23/14) Subjective NAD, afebrile, no bleeding, remains confused Objective Last 24 Hour Vital Signs Date Time Temp Pulse Resp B/P Pulse Ox O2 Delivery O2 Flow Rate FiO2 01/30/17 08:00 97.5 65 20 112/68 100 Nasal Cannula 5.0 01/30/17 07:26 91 01/30/17 03:59 97.3 88 20 129/63 99 Nasal Cannula 5.0 01/30/17 03:55 74 01/30/17 00:06 98.1 71 20 127/69 97 Nasal Cannula 5.0 01/30/17 00:00 92 01/29/17 20:06 97.9 61 21 109/67 90 Nasal Cannula 5.0 01/29/17 19:30 93 Nasal Cannula 3.0 32 01/29/17 19:30 Nasal Cannula 3.0 32 01/29/17 17:18 69 01/29/17 16:00 97.3 71 18 108/61 91 Nasal Cannula 2.0 Intake and Output 01/29/17 01/30/17 19:00 07:00 Intake Total 1015.416 ml 932.500 ml Output Total 1150 ml 800 ml Balance -134.584 ml 132.500 ml Free Water 50 ml IV Total 615.416 ml 402.500 ml Tube Feeding 400 ml 480 ml Output Urine Total 1150 ml 800 ml # Bowel Movements 1 Height (Feet): 5 Height (Inches): 9.00 Weight (Pounds): 120 General Appearance: WD/WN EENT: PERRL/EOMI Neck: non-tender Cardiovascular: normal peripheral pulses Respiratory/Chest: chest wall non-tender Abdomen: normal bowel sounds Extremities: normal range of motion Edema: no edema noted Leg (L), no edema noted Leg (R), no edema noted Pedal (L) , no edema noted Pedal (R) Neurologic: pullman clerk II-XII grossly normal Skin: warm/dry William Bradley Jan 30, 2017 12:52
--- NOTE | 2017-01-30 12:58 | General Progress Note ---
Assessment/Plan Assessment/Plan Hematology Progress Note ASSESSMENT: 1. Anemia 2/2 iron deficiency. 2. Decreased Hgb and hematocrit, r/o GI bleed. 3. Hyponatremia- now improved. 4. Hypertension. 5. Acute exacerbation of chronic encephalopathy. 6. Sepsis with sacral decubitis ulcerations- on abx 7. Psychiatric history. RECS: 1. Monitor counts. 2. Anemia workup has been ordered- pt had low iron, given IV iron. 3. Hb goals above 7. 4. Peripheral smear to be reviewed. 5. Medications reviewed. Potential culprits include Depakote; however, the patient has been on this for long period of time. 6. Abx per ID service. 7. Appreciate neurology as well as ID recommendations. 8. Discussed with staff. Subjective Constitutional: Reports: no symptoms HEENT: Reports: no symptoms Cardiovascular: Reports: no symptoms Respiratory: Reports: no symptoms Gastrointestinal/Abdominal: Reports: no symptoms Genitourinary: Reports: no symptoms Neurologic/Psychiatric: Reports: no symptoms Endocrine: Reports: no symptoms Hematologic/Lymphatic: Reports: anemia Allergies: Coded Allergies: No Known Allergies (Unverified , 10/23/14) Subjective NAD, afebrile, no bleeding, remains confused Objective Last 24 Hour Vital Signs Date Time Temp Pulse Resp B/P Pulse Ox O2 Delivery O2 Flow Rate FiO2 01/30/17 08:00 97.5 65 20 112/68 100 Nasal Cannula 5.0 01/30/17 07:26 91 01/30/17 03:59 97.3 88 20 129/63 99 Nasal Cannula 5.0 01/30/17 03:55 74 01/30/17 00:06 98.1 71 20 127/69 97 Nasal Cannula 5.0 01/30/17 00:00 92 01/29/17 20:06 97.9 61 21 109/67 90 Nasal Cannula 5.0 01/29/17 19:30 93 Nasal Cannula 3.0 32 01/29/17 19:30 Nasal Cannula 3.0 32 01/29/17 17:18 69 01/29/17 16:00 97.3 71 18 108/61 91 Nasal Cannula 2.0 Intake and Output 01/29/17 01/30/17 19:00 07:00 Intake Total 1015.416 ml 932.500 ml Output Total 1150 ml 800 ml Balance -134.584 ml 132.500 ml Free Water 50 ml IV Total 615.416 ml 402.500 ml Tube Feeding 400 ml 480 ml Output Urine Total 1150 ml 800 ml # Bowel Movements 1 Height (Feet): 5 Height (Inches): 9.00 Weight (Pounds): 120 General Appearance: WD/WN EENT: PERRL/EOMI Neck: non-tender Cardiovascular: normal rate Respiratory/Chest: lungs clear Abdomen: normal bowel sounds Extremities: normal range of motion Edema: no edema noted Leg (L), no edema noted Leg (R), no edema noted Pedal (L) , no edema noted Pedal (R) Neurologic: disoriented Skin: warm/dry William Bradley Jan 30, 2017 12:58
--- NOTE | 2017-01-30 14:35 | Infectious Diseases Prog Note ---
Assessment/Plan Problems: (1) HCAP (healthcare-associated pneumonia) Assessment & Plan: continue vacomycin and zosyn empirically , sputum culture is growing gram negative rods, and gram positive cocci (2) Sepsis Assessment & Plan: due to the above, on zosyn and vancomycin, await blood culture (3) Sacral pressure ulcer Assessment & Plan: wound culture is pending , recommend wound care consultation , continue off loading (4) [place] disease Assessment & Plan: advanced , continue supportive care, consult neurology (5) Ear abrasion Assessment & Plan: recommend , ENT eval and offloading, with local wound care Subjective ROS Limited/Unobtainable: Yes Allergies: Coded Allergies: No Known Allergies (Unverified , 10/23/14) Subjective he was up in bed, restless, demented, mildely agitated, afebrile Objective Vital Signs Last 24 Hour Vital Signs Date Time Temp Pulse Resp B/P Pulse Ox O2 Delivery O2 Flow Rate FiO2 01/30/17 12:00 97.9 72 20 117/83 99 Nasal Cannula 5.0 01/30/17 11:32 80 01/30/17 08:00 97.5 65 20 112/68 100 Nasal Cannula 5.0 01/30/17 07:26 91 01/30/17 03:59 97.3 88 20 129/63 99 Nasal Cannula 5.0 01/30/17 03:55 74 01/30/17 00:06 98.1 71 20 127/69 97 Nasal Cannula 5.0 01/30/17 00:00 92 01/29/17 20:06 97.9 61 21 109/67 90 Nasal Cannula 5.0 01/29/17 19:30 93 Nasal Cannula 3.0 32 01/29/17 19:30 Nasal Cannula 3.0 32 01/29/17 17:18 69 01/29/17 16:00 97.3 71 18 108/61 91 Nasal Cannula 2.0 Height (Feet): 5 Height (Inches): 9.00 Weight (Pounds): 120 General Appearance: WD/WN, no acute distress HEENT: normocephalic, atraumatic, anicteric, mucous membranes moist Respiratory/Chest: chest wall non-tender, lungs clear, normal breath sounds, no respiratory distress, no accessory muscle use Cardiovascular: normal peripheral pulses, normal rate, regular rhythm, no gallop/murmur, no JVD Abdomen: normal bowel sounds, soft, non tender, no organomegaly, non distended , no mass, no scars Extremities: no cyanosis, no clubbing Skin: no rash, no lesions, ulcers Microbiology Date/Time Source Procedure Growth Status 01/29/17 17:45 Sputum Induced Gram Stain - Final Resulted 01/29/17 17:45 Sputum Induced Sputum Culture Pending Resulted 01/27/17 22:30 Sacral Wound Gram Stain - Final Resulted 01/27/17 22:30 Wound Culture - Preliminary Gram Negative Bacillus 1 Gram Negative Bacillus 2 Gram Positive Cocci Resulted Current Medications Medications (Trade) Dose Ordered Sig/Poornima Route PRN Reason Start Time Stop Time Status Last Admin Dose Admin Aspirin (ASA) 81 mg DAILY GT 01/28/17 09:00 02/27/17 08:59 01/30/17 08:25 Furosemide (Lasix) 10 mg EVERY 8 HOURS IV 01/29/17 22:00 02/28/17 21:59 01/30/17 13:39 Midodrine (Pro-Amatine) 10 mg THREE TIMES A DAY GT 01/28/17 13:00 02/27/17 12:59 01/30/17 13:42 Olanzapine (ZyPREXA) 2.5 mg Q4H PRN GT Agitation 01/28/17 16:15 02/27/17 16:14 01/29/17 00:19 Pantoprazole (Protonix) 40 mg DAILY GT 01/31/17 09:00 03/02/17 08:59 Piperacillin Sod/ Tazobactam Sod/ Sodium Chloride (Zosyn/Sodium Chloride) 110 ml @ 27.5 mls/hr Q8HR IVPB 01/28/17 15:00 02/04/17 14:59 01/30/17 13:42 Potassium Chloride (KCl 10% 20 mEq oral solution) 20 meq DAILY GT 01/28/17 14:00 02/27/17 13:59 01/30/17 08:26 Vancomycin HCl 1 ea 1 ea DAILY PRN MISC PER RX PROTOCOL 01/28/17 14:00 02/27/17 13:59 Vancomycin HCl/ Dextrose (Vancomycin/D5W) 275 ml @ 183.708 mls/hr Q12HR@0330,1530 IVPB 01/27/17 15:30 02/01/17 15:29 01/30/17 03:40 Joe Allen M.D. Jan 30, 2017 14:35
--- NOTE | 2017-01-30 14:49 | General Progress Note ---
Assessment/Plan Status: stable Assessment/Plan HypoNatremia- depletional vs SIADH- DM, Proteinuria Pneumonia- PH: 1. History of hypertension. 2. Khalida's disease. 3. Psychosis. 4. Hyperlipidemia. 5. Diabetes. 6. Mood disorder. 7. Benign prostatic hypertrophy. Plan: no labs today On feeding stop IV lasix decrease Midodrin 3% saline- prn gastric support- Monitor Lytes- Keep BP and BS in check Subjective ROS Limited/Unobtainable: No Allergies: Coded Allergies: No Known Allergies (Unverified , 10/23/14) Objective Last 24 Hour Vital Signs Date Time Temp Pulse Resp B/P Pulse Ox O2 Delivery O2 Flow Rate FiO2 01/30/17 12:00 97.9 72 20 117/83 99 Nasal Cannula 5.0 01/30/17 11:32 80 01/30/17 08:00 97.5 65 20 112/68 100 Nasal Cannula 5.0 01/30/17 07:26 91 01/30/17 03:59 97.3 88 20 129/63 99 Nasal Cannula 5.0 01/30/17 03:55 74 01/30/17 00:06 98.1 71 20 127/69 97 Nasal Cannula 5.0 01/30/17 00:00 92 01/29/17 20:06 97.9 61 21 109/67 90 Nasal Cannula 5.0 01/29/17 19:30 93 Nasal Cannula 3.0 32 01/29/17 19:30 Nasal Cannula 3.0 32 01/29/17 17:18 69 01/29/17 16:00 97.3 71 18 108/61 91 Nasal Cannula 2.0 Intake and Output 01/29/17 01/30/17 19:00 07:00 Intake Total 1015.416 ml 932.500 ml Output Total 1150 ml 800 ml Balance -134.584 ml 132.500 ml Free Water 50 ml IV Total 615.416 ml 402.500 ml Tube Feeding 400 ml 480 ml Output Urine Total 1150 ml 800 ml # Bowel Movements 1 Height (Feet): 5 Height (Inches): 9.00 Weight (Pounds): 120 General Appearance: no apparent distress Objective no change in PE SHILOH HUTSON Jan 30, 2017 14:49
[2017-01-30 16:00] VITALS: BP 106/63
[2017-01-30] MEDS ORDERED: Vancomycin 1 GM in D5W 275 ML IVPB SCH (16:15)
[2017-01-30] MEDS ORDERED: OLANZapine 2.5mg tab GT PRN (16:15)
[2017-01-30] MEDS ORDERED: Midodrine 10mg tab GT SCH (18:00)
--- NOTE | 2017-01-30 18:46 | Consultation ---
History of Present Illness General Date patient seen: Jan 30, 2017 Time patient seen: 18:39 Chief Complaint: Generalized Weakness Referring physician: Ezequiel Reason for Consultation: Sacral Ulcer Present Illness HPI Asked to evaluate this patient who was admitted to [facility] from a SNF. Upon admission he was noted to have a sacral pressure ulcer. It is unclear how long he has had it. He has a h/o [place] and is bed bound. Fed exclusively via g- tube. Allergies: Coded Allergies: No Known Allergies (Unverified , 10/23/14) Medication History Scheduled Aripiprazole* (Abilify*), 20 MG ORAL DAILY, (Reported) Ascorbic Acid* (Vitamin C*), 500 MG GT DAILY, (Reported) Aspirin* (Aspir-Low*), 81 MG ORAL DAILY, (Reported) Aspirin* (Aspir-Low*), 81 MG GT DAILY, (Reported) Atorvastatin Calcium* (Atorvastatin Calcium*), 20 MG ORAL BEDTIME, (Reported) Benztropine Mesylate* (Benztropine Mesylate*), 1 MG GT BID, (Reported) Bisacodyl* (Dulcolax*), 10 MG ORAL DAILY, (Reported) Calcium Carbonate (Calcium Carbonate), 500 MG GT DAILY, (Reported) Clonazepam* (Klonopin*), 0.25 MG ORAL BID, (Reported) Clonazepam* (Klonopin*), 1 MG GT Q6H, (Reported) Docusate Sodium* (Docusate Sodium*), 100 MG ORAL THREE TIMES A DAY, (Reported) Gabapentin* (Gabapentin*), 100 MG GT DAILY, (Reported) Glimepiride* (Glimepiride*), 1 MG GT BEFORE BREAKFAST, (Reported) Insulin Regular, Human* (Novolin R*), 0 SUBQ AC+HS, (Reported) Lamotrigine* (Lamictal*), 25 MG GT BID, (Reported) Lisinopril (Lisinopril*), 5 MG ORAL DAILY, (Reported) Lisinopril* (Lisinopril*), 10 MG ORAL DAILY, (Reported) Lorazepam* (Lorazepam*), 1 MG ORAL Q6HR, (Reported) Magnesium Hydroxide (Milk of Magnesia), 30 ML ORAL DAILY, (Reported) Magnesium Oxide (Magnesium), 400 MG PO BID, (Reported) Metformin Hcl* (Metformin Hcl*), 500 MG ORAL TWICE A DAY, (Reported) Metronidazole* (Flagyl*), 500 MG GT THREE TIMES A DAY, (Reported) Mirtazapine* (Mirtazapine*), 7.5 MG ORAL EVERY 12 HOURS, (Reported) Multivitamin With Minerals (Multivitamins With Minerals*), 1 TAB GT DAILY, ( Reported) Pantoprazole (Pantoprazole), 40 MG ORAL DAILY, (Reported) Permethrin* (Elimite*), 1 APPLIC TOPIC ONCE, (Reported) Simvastatin (Zocor), 40 MG ORAL BEDTIME, (Reported) Tamsulosin Hcl (Tamsulosin Hcl*), 0.4 MG ORAL BEDTIME, (Reported) Tamsulosin Hcl (Tamsulosin Hcl*), 0.4 MG ORAL BEDTIME, (Reported) Trimethoprim/Sulfamethoxazole (Bactrim 400-80 mg Tablet), 1 TAB ORAL EVERY 12 HOURS, (Reported) Valproic Acid (Valproic Acid), 500 MG GT BID, (Reported) Vancomycin/0.9% Sod Chloride (Vanco-0.9% Nacl 1.25 G/250 Ml), 1.25 GM IV EVERY 12 HOURS, (Reported) Zinc Sulfate (Zinc Sulfate*), 220 MG GT DAILY, (Reported) Scheduled PRN Hydrocodone Bit/Acetaminophen 5-325* ([place] 5-325 Tablet*), 2 TAB ORAL Q4H PRN for For Pain, (Reported) Lorazepam* (Lorazepam*), 1 MG ORAL Q6HR PRN for For Anxiety, (Reported) Midodrine (Midodrine HCl), 2.5 MG PO TID PRN for For hypotension, (Reported) Patient History Limited by: medical condition History Provided By: Medical Record Healthcare decision maker Resuscitation status Advanced Directive on File No Physical Exam General Appearance: cachetic Lines, tubes and drains: peripheral, gtube Respiratory/Chest: no respiratory distress Abdomen: soft Skin Exam: other - Stage 4 sacral pressure ulcer with bone exposed. Undermining present circumferentially. Periskin with appearance c/w DTI from 6- 12 o'clock. No erythema or warmth. No purulent drainage. Musculoskeletal: atrophy, other - Flexion contractures at the hips and knees. Last 24 Hour Vital Signs Date Time Temp Pulse Resp B/P Pulse Ox O2 Delivery O2 Flow Rate FiO2 4/20/17 16:00 98.1 75 18 106/63 100 Nasal Cannula 01/30/17 12:00 97.9 72 20 117/83 99 Nasal Cannula 5.0 01/30/17 11:32 80 01/30/17 08:00 97.5 65 20 112/68 100 Nasal Cannula 5.0 01/30/17 07:26 91 01/30/17 03:59 97.3 88 20 129/63 99 Nasal Cannula 5.0 01/30/17 03:55 74 01/30/17 00:06 98.1 71 20 127/69 97 Nasal Cannula 5.0 01/30/17 00:00 92 01/29/17 20:06 97.9 61 21 109/67 90 Nasal Cannula 5.0 01/29/17 19:30 93 Nasal Cannula 3.0 32 01/29/17 19:30 Nasal Cannula 3.0 32 Intake and Output 01/29/17 01/30/17 19:00 07:00 Intake Total 1015.416 ml 932.500 ml Output Total 1150 ml 800 ml Balance -134.584 ml 132.500 ml Free Water 50 ml IV Total 615.416 ml 402.500 ml Tube Feeding 400 ml 480 ml Output Urine Total 1150 ml 800 ml # Bowel Movements 1 Height (Feet): 5 Height (Inches): 9.00 Weight (Pounds): 120 Medications Current Medications Medications (Trade) Dose Ordered Sig/Poornima Route PRN Reason Start Time Stop Time Status Last Admin Dose Admin Aspirin (ASA) 81 mg DAILY GT 01/31/17 09:00 03/02/17 08:59 Midodrine (Pro-Amatine) 5 mg THREE TIMES A DAY GT 01/30/17 18:00 03/01/17 17:59 01/30/17 17:01 Olanzapine (ZyPREXA) 2.5 mg Q4H PRN GT Agitation 01/30/17 16:15 03/01/17 16:14 Pantoprazole (Protonix) 40 mg DAILY GT 01/31/17 09:00 03/02/17 08:59 Piperacillin Sod/ Tazobactam Sod/ Sodium Chloride (Zosyn/Sodium Chloride) 110 ml @ 27.5 mls/hr Q8HR IVPB 01/30/17 22:00 02/06/17 21:59 Potassium Chloride (KCl 10% 20 mEq oral solution) 20 meq DAILY GT 01/31/17 09:00 03/02/17 08:59 Vancomycin HCl 1 ea 1 ea DAILY PRN MISC PER RX PROTOCOL 01/30/17 16:05 03/01/17 16:04 Vancomycin HCl/ Dextrose (Vancomycin/D5W) 275 ml @ 183.708 mls/hr Q12H IVPB 01/30/17 19:30 02/04/17 19:29 Assessment/Plan Assessment/Plan Patient with stage four sacral pressure ulcer. Bone exposed and presumed to have osteomyelitis however would need bone biopsy/culture to confirm. Given the patient's degree of cachexia, contractures, and malnourishment, prognosis for healing this ulcer is extremely poor. Need to aggressively offload, treat wound cultures, and obtain nutrition consult for guiding TF recommendations. Urgent debridement not necessary but if ID needs bone culture to guid antibiotic therapy, can perform at bedside. DANIEL ISBELL Jan 30, 2017 18:46
[2017-01-30 20:00] VITALS: BP 108/65
[2017-01-30] MEDS: Heparin 5000 units/ml inj SUBQ SCH (22:13)
--- NOTE | 2017-01-30 23:35 | Cardiology Progress Note ---
Assessment/Plan Assessment/Plan 1. Dyspnea likely due to bilateral pneumonia, pulmonary toilet, IV ABx, hydration and O2 therapy. 2. Hypotension, resolved. 3. Hx of CAD, ? details, stable with no ECG ischemic features 4. Hx of HTN 5. Hx of DM 6. [place] disease Subjective Subjective Transferred to telemetry. Sinus rhythm at 74. Objective Last 24 Hour Vital Signs Date Time Temp Pulse Resp B/P Pulse Ox O2 Delivery O2 Flow Rate FiO2 01/30/17 20:00 74 01/30/17 20:00 97.9 74 20 108/65 Nasal Cannula 4.0 01/30/17 16:00 98.1 75 18 106/63 100 Nasal Cannula 01/30/17 16:00 80 01/30/17 12:00 97.9 72 20 117/83 99 Nasal Cannula 5.0 01/30/17 11:32 80 01/30/17 08:00 97.5 65 20 112/68 100 Nasal Cannula 5.0 01/30/17 07:26 91 01/30/17 03:59 97.3 88 20 129/63 99 Nasal Cannula 5.0 01/30/17 03:55 74 01/30/17 00:06 98.1 71 20 127/69 97 Nasal Cannula 5.0 01/30/17 00:00 92 Intake and Output 01/29/17 01/30/17 19:00 07:00 Intake Total 1015.416 ml 932.500 ml Output Total 1150 ml 800 ml Balance -134.584 ml 132.500 ml Free Water 50 ml IV Total 615.416 ml 402.500 ml Tube Feeding 400 ml 480 ml Output Urine Total 1150 ml 800 ml # Bowel Movements 1 2D Echo: Normal LVEF, RVSP 28 mmHg Laboratory Tests Test 01/30/17 22:22 Prealbumin Pending Microbiology Date/Time Source Procedure Growth Status 01/29/17 17:45 Sputum Induced Gram Stain - Final Resulted 01/29/17 17:45 Sputum Induced Sputum Culture Pending Resulted Objective HEENT: Normocephalic and atraumatic. Pupils reactive to light. Dry oral mucosa. No ulceration or exudate. NECK: No JVD, no carotid bruit, carotid upstroke 2+ B/L CARDIOVASCULAR: Normal S1S2, Regular, rate and rhythm. No murmurs, gallops or rubs. LUNGS: Diminished BS both lungs, crackles on the right base ABDOMEN: Soft, nontender, and nondistended. G-tube site looks intact. EXTREMITIES: No edema clubbing or cyanosis. BEAU JC Jan 30, 2017 23:35
[2017-01-31 00:02] VITALS: BP 101/61
[2017-01-31 03:59] VITALS: BP 100/58
[2017-01-31] MEDS: Piperacillin/Tazobactam 3.375 GM in NS 110 ML IVPB SCH ×3 (05:42→21:56)
[2017-01-31] MEDS: Heparin 5000 units/ml inj SUBQ SCH ×3 (05:42→21:57)
[2017-01-31] MEDS: Vancomycin 1 GM in D5W 275 ML IVPB SCH (07:30)
[2017-01-31 08:06] VITALS: BP 110/49
[2017-01-31] MEDS: KCl 10% 20 mEq/15ml liquid GT SCH (08:20)
[2017-01-31] MEDS: Midodrine 10mg tab GT SCH ×3 (08:20→18:05)
[2017-01-31] MEDS: Aspirin Baby 81mg GT SCH (08:20)
[2017-01-31] MEDS: Pantoprazole 40mg pkt GT SCH (08:20)
[2017-01-31 08:27] LABS: ALANINE AMINOTRANSFERASE 18 U/L (3-41); ALBUMIN/GLOBULIN RATIO 0.6 (1.0-2.7); ANION GAP 12 (5-15); ASPARTATE AMINO TRANSFERASE 30 U/L (5-40); CALCIUM 8.5 mg/dL (8.6-10.2); CARBON DIOXIDE 30 mEQ/L (20-30); CHLORIDE 97 mEQ/L (98-107); CREATININE 0.5 mg/dL (0.7-1.2); CRP QUANT 13.9 mg/dL (< 0.5); GLOMERULAR FILTRATION RATE > 60 mL/min (>60); HEMOLYSIS 10; MAGNESIUM 2.3 mg/dL (1.7-2.5); PHOSPHORUS 4.9 mg/dL (2.5-4.8); POTASSIUM 3.9 mEQ/L (3.4-4.9); SODIUM 139 mEQ/L (135-145); TOTAL PROTEIN 6.3 g/dL (6.6-8.7); URIC ACID 2.7 mg/dL (3.0-7.5)
[2017-01-31] MEDS ORDERED: Pantoprazole 40mg pkt GT SCH (09:00)
[2017-01-31 10:15] LABS: BASOPHILS % (AUTO) 0.5 % (0.0-2.0); EOSINOPHILS % (AUTO) 0.3 % (0.0-3.0); LYMPHOCYTES % (AUTO) 16.9 % (20.0-45.0); MEAN CORPUSCULAR HGB CONC 32.6 G/DL (32.0-36.0); MEAN CORPUSCULAR VOLUME 95 FL (80-99); NEUTROPHILS % (AUTO) 79.3 % (45.0-75.0); PLATELET COUNT 403 K/UL (150-450); RED BLOOD COUNT 3.05 M/UL (4.70-6.10); RED CELL DISTRIBUTION WIDTH 13.7 % (11.6-14.8); WHITE BLOOD COUNT 7.6 K/UL (4.8-10.8)
[2017-01-31] MEDS ORDERED: Sterile Water Irrig 1000ml IRRIG ONE (10:18)
--- NOTE | 2017-01-31 10:19 | General Progress Note ---
Assessment/Plan Status: stable Status Narrative Na now corrected Assessment/Plan HypoNatremia- depletional vs SIADH- DM, Proteinuria Pneumonia- PH: 1. History of hypertension. 2. Khalida's disease. 3. Psychosis. 4. Hyperlipidemia. 5. Diabetes. 6. Mood disorder. 7. Benign prostatic hypertrophy. Plan: On feeding stop IV lasix decrease Midodrin 3% saline- prn gastric support- Monitor Lytes- Keep BP and BS in check Subjective ROS Limited/Unobtainable: No Constitutional: Reports: malaise Allergies: Coded Allergies: No Known Allergies (Unverified , 10/23/14) Objective Last 24 Hour Vital Signs Date Time Temp Pulse Resp B/P Pulse Ox O2 Delivery O2 Flow Rate FiO2 01/31/17 08:06 97.9 70 20 110/49 95 Nasal Cannula 3.0 01/31/17 08:00 70 01/31/17 04:00 66 01/31/17 03:59 98.6 69 19 100/58 96 Nasal Cannula 4.0 01/31/17 00:02 98.6 67 20 101/61 93 Nasal Cannula 4.0 01/31/17 00:00 75 01/30/17 20:00 74 01/30/17 20:00 97.9 74 20 108/65 Nasal Cannula 4.0 01/30/17 16:00 98.1 75 18 106/63 100 Nasal Cannula 01/30/17 16:00 80 01/30/17 12:00 97.9 72 20 117/83 99 Nasal Cannula 5.0 01/30/17 11:32 80 Intake and Output 01/30/17 01/31/17 19:00 07:00 Intake Total 415.0 ml 992.500 ml Output Total 1350 ml 700 ml Balance -935.0 ml 292.500 ml Free Water 100 ml IV Total 55.0 ml 412.500 ml Tube Feeding 360 ml 480 ml Output Urine Total 1350 ml 700 ml # Bowel Movements 1 Laboratory Tests 01/30/17 22:22: Prealbumin [Pending] 01/31/17 05:50: Sodium Level 139, Potassium Level 3.9, Chloride Level 97L, Carbon Dioxide Level 30, Anion Gap 12, Blood Urea Nitrogen 24H, Creatinine 0.5L, Estimat Glomerular Filtration Rate > 60, Glucose Level 111H, Uric Acid 2.7L, Calcium Level 8.5L, Phosphorus Level 4.9H, Magnesium Level 2.3, Total Bilirubin 0.2, Aspartate Amino Transf (AST/SGOT) 30, Alanine Aminotransferase (ALT/SGPT) 18, Alkaline Phosphatase 63, C-Reactive Protein, Quantitative 13.9H, Pro-B-Type Natriuretic Peptide 3076H, Total Protein 6.3L, Albumin 2.4L, Globulin 3.9, Albumin/Globulin Ratio 0.6L 01/31/17 09:22: White Blood Count 7.6, Red Blood Count 3.05L, Hemoglobin 9.5L, Hematocrit 29.0L , Mean Corpuscular Volume 95, Mean Corpuscular Hemoglobin 31.0, Mean Corpuscular Hemoglobin Concent 32.6, Red Cell Distribution Width 13.7, Platelet Count 403, Mean Platelet Volume 5.0L, Neutrophils (%) (Auto) 79.3H, Lymphocytes (%) (Auto) 16.9L, Monocytes (%) (Auto) 3.0, Eosinophils (%) (Auto) 0.3, Basophils (%) (Auto) 0.5 Height (Feet): 5 Height (Inches): 9.00 Weight (Pounds): 120 General Appearance: no apparent distress Objective no change in PE SHILOH HUTSON Jan 31, 2017 10:19
--- NOTE | 2017-01-31 11:51 | General Progress Note ---
Assessment/Plan Problem List: (1) Laceration ICD Codes: T14.8 - Other injury of unspecified body region SNOMED: 306684498 (2) Closed head injury ICD Codes: S09.90XA - Unspecified injury of head, initial encounter SNOMED: 420369191319 (3) Fall ICD Codes: W19.XXXA - Unspecified fall, initial encounter SNOMED: 8241253 (4) Closed head injury ICD Codes: S09.90XA - Unspecified injury of head, initial encounter SNOMED: 767454722885 (5) Rash and other nonspecific skin eruption ICD Codes: R21 - Rash and other nonspecific skin eruption SNOMED: 808693316 (6) Abscess ICD Codes: L02.91 - Cutaneous abscess, unspecified SNOMED: 233141051 (7) Sepsis ICD Codes: A41.9 - Sepsis, unspecified organism SNOMED: 48666608 (8) Sacral pressure ulcer ICD Codes: L89.159 - Pressure ulcer of sacral region, unspecified stage SNOMED: 914817447 (9) HCAP (healthcare-associated pneumonia) ICD Codes: J18.9 - Pneumonia, unspecified organism SNOMED: 181848626 (10) [place] disease ICD Codes: G10 - [place]'s disease SNOMED: 70916735 (11) Hyponatremia ICD Codes: E87.1 - Hypo-osmolality and hyponatremia SNOMED: 19486568 (12) Pneumonia ICD Codes: J18.9 - Pneumonia, unspecified organism SNOMED: 110742194 (13) Weakness generalized ICD Codes: R53.1 - Weakness SNOMED: 56270310 (14) Ear abrasion ICD Codes: S00.419A - Abrasion of unspecified ear, initial encounter SNOMED: 561566924 Status: stable, progressing, tolerating diet Assessment/Plan ot pt diet abx wound care cbc bmp am Subjective Constitutional: Reports: weakness Allergies: Coded Allergies: No Known Allergies (Unverified , 10/23/14) All Systems: reviewed and negative except above Subjective o2nc calm in bed Objective Last 24 Hour Vital Signs Date Time Temp Pulse Resp B/P Pulse Ox O2 Delivery O2 Flow Rate FiO2 01/31/17 08:06 97.9 70 20 110/49 95 Nasal Cannula 3.0 01/31/17 08:00 70 01/31/17 04:00 66 01/31/17 03:59 98.6 69 19 100/58 96 Nasal Cannula 4.0 01/31/17 00:02 98.6 67 20 101/61 93 Nasal Cannula 4.0 01/31/17 00:00 75 01/30/17 20:00 74 01/30/17 20:00 97.9 74 20 108/65 Nasal Cannula 4.0 01/30/17 16:00 98.1 75 18 106/63 100 Nasal Cannula 01/30/17 16:00 80 01/30/17 12:00 97.9 72 20 117/83 99 Nasal Cannula 5.0 Intake and Output 01/30/17 01/31/17 19:00 07:00 Intake Total 415.0 ml 992.500 ml Output Total 1350 ml 700 ml Balance -935.0 ml 292.500 ml Free Water 100 ml IV Total 55.0 ml 412.500 ml Tube Feeding 360 ml 480 ml Output Urine Total 1350 ml 700 ml # Bowel Movements 1 Laboratory Tests 01/30/17 22:22: Prealbumin [Pending] 01/31/17 05:50: Sodium Level 139, Potassium Level 3.9, Chloride Level 97L, Carbon Dioxide Level 30, Anion Gap 12, Blood Urea Nitrogen 24H, Creatinine 0.5L, Estimat Glomerular Filtration Rate > 60, Glucose Level 111H, Uric Acid 2.7L, Calcium Level 8.5L, Phosphorus Level 4.9H, Magnesium Level 2.3, Total Bilirubin 0.2, Aspartate Amino Transf (AST/SGOT) 30, Alanine Aminotransferase (ALT/SGPT) 18, Alkaline Phosphatase 63, C-Reactive Protein, Quantitative 13.9H, Pro-B-Type Natriuretic Peptide 3076H, Total Protein 6.3L, Albumin 2.4L, Globulin 3.9, Albumin/Globulin Ratio 0.6L 01/31/17 09:22: White Blood Count 7.6, Red Blood Count 3.05L, Hemoglobin 9.5L, Hematocrit 29.0L , Mean Corpuscular Volume 95, Mean Corpuscular Hemoglobin 31.0, Mean Corpuscular Hemoglobin Concent 32.6, Red Cell Distribution Width 13.7, Platelet Count 403, Mean Platelet Volume 5.0L, Neutrophils (%) (Auto) 79.3H, Lymphocytes (%) (Auto) 16.9L, Monocytes (%) (Auto) 3.0, Eosinophils (%) (Auto) 0.3, Basophils (%) (Auto) 0.5 Height (Feet): 5 Height (Inches): 9.00 Weight (Pounds): 120 General Appearance: lethargic EENT: normal ENT inspection Neck: normal alignment Cardiovascular: normal peripheral pulses, normal rate, regular rhythm Respiratory/Chest: chest wall non-tender, lungs clear, normal breath sounds Abdomen: normal bowel sounds, non tender, soft Extremities: normal inspection Edema: no edema noted Arm (L), no edema noted Arm (R), no edema noted Leg (L), no edema noted Leg (R), no edema noted Pedal (L), no edema noted Pedal (R), no edema noted Generalized Neurologic: motor weakness Skin: normal pigmentation, warm/dry CANDELARIO BORREGO Jan 31, 2017 11:51
[2017-01-31 12:07] VITALS: BP 104/64
--- NOTE | 2017-01-31 15:23 | Infectious Diseases Prog Note ---
Assessment/Plan Problems: (1) HCAP (healthcare-associated pneumonia) Assessment & Plan: on vacomycin and zosyn empirically , sputum culture is growing gram negative rods, and gram positive cocci, will switch vancomycin to zyvox to cover for VRE, which he grew from his wounds (2) Sepsis Assessment & Plan: due to the above, on zosyn and vancomycin, will switch to zyvox to cover for VRE, blood culture is negative (3) Sacral pressure ulcer Assessment & Plan: wound culture is growing E coli, VRE, and staph aureus , will switch vancomycin to zyvox to cover VRE, continue local wound care , and off loading . appreciate plastic surgery input, will treat with antibiotics for 6 weeks for underlying osteomyelitis, since his wounds are deep to the bone (4) [place] disease Assessment & Plan: advanced , continue supportive care, consult neurology (5) Ear abrasion Assessment & Plan: recommend , ENT eval and offloading, with local wound care Subjective ROS Limited/Unobtainable: Yes Allergies: Coded Allergies: No Known Allergies (Unverified , 10/23/14) Subjective he was quiet , up in bed, demented, not agitated, afebrile Objective Vital Signs Last 24 Hour Vital Signs Date Time Temp Pulse Resp B/P Pulse Ox O2 Delivery O2 Flow Rate FiO2 01/31/17 12:07 97.5 61 20 104/64 95 Nasal Cannula 3.0 01/31/17 12:00 62 01/31/17 08:06 97.9 70 20 110/49 95 Nasal Cannula 3.0 01/31/17 08:00 70 01/31/17 04:00 66 01/31/17 03:59 98.6 69 19 100/58 96 Nasal Cannula 4.0 01/31/17 00:02 98.6 67 20 101/61 93 Nasal Cannula 4.0 01/31/17 00:00 75 01/30/17 20:00 74 01/30/17 20:00 97.9 74 20 108/65 Nasal Cannula 4.0 01/30/17 16:00 98.1 75 18 106/63 100 Nasal Cannula 01/30/17 16:00 80 Height (Feet): 5 Height (Inches): 9.00 Weight (Pounds): 120 General Appearance: WD/WN, no acute distress HEENT: normocephalic, atraumatic, anicteric, mucous membranes moist Respiratory/Chest: chest wall non-tender, lungs clear, normal breath sounds, no respiratory distress Cardiovascular: normal peripheral pulses, normal rate, regular rhythm, no gallop/murmur, no JVD Abdomen: normal bowel sounds, soft, non tender, no organomegaly, non distended , no mass, no scars Extremities: no cyanosis Skin: ulcers Microbiology Date/Time Source Procedure Growth Status 01/29/17 17:45 Sputum Induced Gram Stain - Final Resulted 01/29/17 17:45 Sputum Culture - Preliminary Gram Negative Bacillus 1 Gram Negative Bacillus 2 Resulted Laboratory Tests Test 01/30/17 22:22 01/31/17 05:50 01/31/17 09:22 Prealbumin Pending Sodium Level 139 mEQ/L (135-145) Potassium Level 3.9 mEQ/L (3.4-4.9) Chloride Level 97 mEQ/L (98-107) L Carbon Dioxide Level 30 mEQ/L (20-30) Anion Gap 12 (5-15) Blood Urea Nitrogen 24 mg/dL (7-23) H Creatinine 0.5 mg/dL (0.7-1.2) L Estimat Glomerular Filtration Rate > 60 mL/min (>60) Glucose Level 111 mg/dL (74-106) H Uric Acid 2.7 mg/dL (3.0-7.5) L Calcium Level 8.5 mg/dL (8.6-10.2) L Phosphorus Level 4.9 mg/dL (2.5-4.8) H Magnesium Level 2.3 mg/dL (1.7-2.5) Total Bilirubin 0.2 mg/dL (0.0-1.2) Aspartate Amino Transf (AST/SGOT) 30 U/L (5-40) Alanine Aminotransferase (ALT/SGPT) 18 U/L (3-41) Alkaline Phosphatase 63 U/L (40-129) C-Reactive Protein, Quantitative 13.9 mg/dL (< 0.5) H Pro-B-Type Natriuretic Peptide 3076 pg/mL (0-125) H Total Protein 6.3 g/dL (6.6-8.7) L Albumin 2.4 g/dL (3.5-5.2) L Globulin 3.9 g/dL Albumin/Globulin Ratio 0.6 (1.0-2.7) L White Blood Count 7.6 K/UL (4.8-10.8) Red Blood Count 3.05 M/UL (4.70-6.10) L Hemoglobin 9.5 G/DL (14.2-18.0) L Hematocrit 29.0 % (42.0-52.0) L Mean Corpuscular Volume 95 FL (80-99) Mean Corpuscular Hemoglobin 31.0 PG (27.0-31.0) Mean Corpuscular Hemoglobin Concent 32.6 G/DL (32.0-36.0) Red Cell Distribution Width 13.7 % (11.6-14.8) Platelet Count 403 K/UL (150-450) Mean Platelet Volume 5.0 FL (6.5-10.1) L Neutrophils (%) (Auto) 79.3 % (45.0-75.0) H Lymphocytes (%) (Auto) 16.9 % (20.0-45.0) L Monocytes (%) (Auto) 3.0 % (1.0-10.0) Eosinophils (%) (Auto) 0.3 % (0.0-3.0) Basophils (%) (Auto) 0.5 % (0.0-2.0) Current Medications Medications (Trade) Dose Ordered Sig/Poornima Route PRN Reason Start Time Stop Time Status Last Admin Dose Admin Aspirin (ASA) 81 mg DAILY GT 01/31/17 09:00 03/02/17 08:59 01/31/17 08:20 Heparin Sodium (Porcine) (Heparin 5000 units/ml) 5,000 units EVERY 8 HOURS SUBQ 01/30/17 22:00 03/01/17 21:59 01/31/17 13:51 Midodrine (Pro-Amatine) 5 mg THREE TIMES A DAY GT 01/30/17 18:00 03/01/17 17:59 01/31/17 13:50 Olanzapine (ZyPREXA) 2.5 mg Q4H PRN GT Agitation 01/30/17 16:15 03/01/17 16:14 Pantoprazole (Protonix) 40 mg DAILY GT 01/31/17 09:00 03/02/17 08:59 01/31/17 08:20 Piperacillin Sod/ Tazobactam Sod/ Sodium Chloride (Zosyn/Sodium Chloride) 110 ml @ 27.5 mls/hr Q8HR IVPB 01/30/17 22:00 02/06/17 21:59 01/31/17 13:51 Potassium Chloride (KCl 10% 20 mEq oral solution) 20 meq DAILY GT 01/31/17 09:00 03/02/17 08:59 01/31/17 08:20 Vancomycin HCl 1 ea 1 ea DAILY PRN MISC PER RX PROTOCOL 01/30/17 16:05 03/01/17 16:04 Vancomycin HCl/ Dextrose (Vancomycin/D5W) 275 ml @ 183.708 mls/hr Q12H IVPB 01/30/17 19:30 02/04/17 19:29 01/31/17 07:30 Joe Allen M.D. Jan 31, 2017 15:23
--- NOTE | 2017-01-31 15:35 | Neurology Progress Note ---
Interim History Interim History Interim History Mr. Murray is non verbal. He is subdued today. He is more sedated. His choreoathetotic movements are better. He continues to be cognitively impoverished and generally weak. Review of Systems Neuro Review of Systems Benign. Objective Physical Exam Last Vital Signs Date Time Temp Pulse Resp B/P Pulse Ox O2 Delivery O2 Flow Rate FiO2 01/31/17 12:07 97.5 61 20 104/64 95 Nasal Cannula 3.0 01/29/17 19:30 32 Laboratory Tests Test 01/30/17 22:22 01/31/17 05:50 01/31/17 09:22 Prealbumin Pending Sodium Level 139 mEQ/L (135-145) Potassium Level 3.9 mEQ/L (3.4-4.9) Chloride Level 97 mEQ/L (98-107) L Carbon Dioxide Level 30 mEQ/L (20-30) Anion Gap 12 (5-15) Blood Urea Nitrogen 24 mg/dL (7-23) H Creatinine 0.5 mg/dL (0.7-1.2) L Estimat Glomerular Filtration Rate > 60 mL/min (>60) Glucose Level 111 mg/dL (74-106) H Uric Acid 2.7 mg/dL (3.0-7.5) L Calcium Level 8.5 mg/dL (8.6-10.2) L Phosphorus Level 4.9 mg/dL (2.5-4.8) H Magnesium Level 2.3 mg/dL (1.7-2.5) Total Bilirubin 0.2 mg/dL (0.0-1.2) Aspartate Amino Transf (AST/SGOT) 30 U/L (5-40) Alanine Aminotransferase (ALT/SGPT) 18 U/L (3-41) Alkaline Phosphatase 63 U/L (40-129) C-Reactive Protein, Quantitative 13.9 mg/dL (< 0.5) H Pro-B-Type Natriuretic Peptide 3076 pg/mL (0-125) H Total Protein 6.3 g/dL (6.6-8.7) L Albumin 2.4 g/dL (3.5-5.2) L Globulin 3.9 g/dL Albumin/Globulin Ratio 0.6 (1.0-2.7) L White Blood Count 7.6 K/UL (4.8-10.8) Red Blood Count 3.05 M/UL (4.70-6.10) L Hemoglobin 9.5 G/DL (14.2-18.0) L Hematocrit 29.0 % (42.0-52.0) L Mean Corpuscular Volume 95 FL (80-99) Mean Corpuscular Hemoglobin 31.0 PG (27.0-31.0) Mean Corpuscular Hemoglobin Concent 32.6 G/DL (32.0-36.0) Red Cell Distribution Width 13.7 % (11.6-14.8) Platelet Count 403 K/UL (150-450) Mean Platelet Volume 5.0 FL (6.5-10.1) L Neutrophils (%) (Auto) 79.3 % (45.0-75.0) H Lymphocytes (%) (Auto) 16.9 % (20.0-45.0) L Monocytes (%) (Auto) 3.0 % (1.0-10.0) Eosinophils (%) (Auto) 0.3 % (0.0-3.0) Basophils (%) (Auto) 0.5 % (0.0-2.0) Neurologic Exam Objective PHYSICAL EXAMINATION: GENERAL: He is a well-developed, but lean and cachectic-looking gentleman, lying in bed, in a position. HEAD: Normocephalic and atraumatic. EENT: Examination benign. NECK: No neck rigidity was observed. NEUROLOGICAL EXAMINATION: MENTAL STATUS EXAMINATION: He was awake and alert. He was not communicative. He was unable to cooperate for further mental status testing. SPEECH: He was mute. LANGUAGE: Could not be tested. CRANIAL NERVE EXAMINATION: II: He did blink to threat in all dimas. He, however, was unable to cooperate for confrontation testing and in addition was also unable to count fingers. III, IV & : The external ocular movements were full and the pupils 3 mm in diameter, equal, round, regular, and reactive to light. V: He had normal facial sensations and the temporales, masseters, and pterygoids functioned normally. VII: He had normal facial expressions and no facial asymmetry. VIII: He was able to hear and had no nystagmus. IX: The palate moved symmetrically on phonation. X: He had no hoarseness of voice. XI: The sternocleidomastoids and trapezii functioned normally. XII: The tongue was in the midline without any fasciculations or atrophy. MOTOR SYSTEM: The tone was increased in all four extremities with spasticity. Examination of muscle mass revealed severe generalized muscle wasting involving the lower extremities more than the upper extremities. Examination of power was impossible to perform on individual muscle groups. He had a significant quadriparesis involving the lower extremities more than the upper extremities. SENSORY EXAMINATION: He responded appropriately to deep pain. He was unable to cooperate for other sensory modalities. REFLEXES: 1+ and bilaterally symmetrical at the biceps, triceps, and brachioradialis. 2+ at both knees. 0 at both ankles. The plantar responses were flexor bilaterally. COORDINATION, STANCE & GAIT: Could not be tested. ABNORMAL MOVEMENTS: He exhibited choreoathetotic movements involving all his extremities and the facial muscles. In addition, he also exhibited bruxism. Impression/Recommendations Diagnostic Impression 1. Mr. Reece Murray is a 61-year-old, gentleman, of unknown handedness, who has a long history of [place]'s disease, who was hospitalized for "a change in mental state and generalized weakness." 2. He is non verbal and subdued today. He continues to exhibit choreoathetotic movements. He continues to be cognitively impoverished and weak. 3. On neurological examination, at this time, he does demonstrate global cerebral dysfunction. He is mute and is unable to cooperate for further mental status testing. He also demonstrates generalized weakness and generalized wasting of the muscles. His deep tendon reflexes are globally diminished. He , in addition, exhibits choreoathetotic movements of all his extremities and facial muscles. 4. Laboratory data on initial evaluation revealed that he was significantly hyponatremic with a sodium of 127. His CK was elevated to 226. He was significantly hypoalbuminemic with an albumin of 2.6. His CBC revealed that he is anemic with a hemoglobin of 10.4 and his urinalysis revealed 1+ leukocyte esterase, 0 to 2 red blood cells per high-power field, 2 to 4 white blood cells per high-power field, and a few urinary bacteria. 5. His B12 and TSH are normal. 6. The patient's history and neurological examination are most compatible with underlying advanced [place]'s disease with a superadded encephalopathy most probably related to the hyponatremia and urinary tract infection. 7. His encephalopathy is worse today. Recommendations 1. Continue present management. 2. Aggressive treatment of the patient's infectious process. 3. Correction of the patient's metabolic dysfunction. 4. Observe closely. Garrison Reid M.D., [email or web address]. GARRISON REID Jan 31, 2017 15:35
--- NOTE | 2017-01-31 15:52 | General Progress Note ---
Assessment/Plan Assessment/Plan Hematology Progress Note ASSESSMENT: 1. Anemia 2/2 iron deficiency. 2. Decreased Hgb and hematocrit, r/o GI bleed. 3. Hyponatremia- now improved. 4. Hypertension. 5. Acute exacerbation of chronic encephalopathy. 6. Sepsis with sacral decubitis ulcerations- on abx 7. Psychiatric history. RECS: 1. Monitor counts. 2. Anemia workup has been ordered- pt had low iron, given IV iron. 3. Hb goals above 7. 4. Peripheral smear to be reviewed. 5. Medications reviewed. Potential culprits include Depakote; however, the patient has been on this for long period of time. 6. Abx per ID service. 7. Appreciate neurology as well as ID recommendations. 8. Discussed with staff. Subjective Constitutional: Reports: no symptoms HEENT: Reports: no symptoms Cardiovascular: Reports: no symptoms Respiratory: Reports: no symptoms Gastrointestinal/Abdominal: Reports: no symptoms Genitourinary: Reports: no symptoms Neurologic/Psychiatric: Reports: no symptoms Endocrine: Reports: no symptoms Hematologic/Lymphatic: Reports: anemia Allergies: Coded Allergies: No Known Allergies (Unverified , 10/23/14) Subjective no fevers, chills, or night sweats, no bleeding, remains nonverbal Objective Last 24 Hour Vital Signs Date Time Temp Pulse Resp B/P Pulse Ox O2 Delivery O2 Flow Rate FiO2 01/31/17 12:07 97.5 61 20 104/64 95 Nasal Cannula 3.0 01/31/17 12:00 62 01/31/17 08:06 97.9 70 20 110/49 95 Nasal Cannula 3.0 01/31/17 08:00 70 01/31/17 04:00 66 01/31/17 03:59 98.6 69 19 100/58 96 Nasal Cannula 4.0 01/31/17 00:02 98.6 67 20 101/61 93 Nasal Cannula 4.0 01/31/17 00:00 75 01/30/17 20:00 74 01/30/17 20:00 97.9 74 20 108/65 Nasal Cannula 4.0 01/30/17 16:00 98.1 75 18 106/63 100 Nasal Cannula 01/30/17 16:00 80 Intake and Output 01/30/17 01/31/17 19:00 07:00 Intake Total 415.0 ml 992.500 ml Output Total 1350 ml 700 ml Balance -935.0 ml 292.500 ml Free Water 100 ml IV Total 55.0 ml 412.500 ml Tube Feeding 360 ml 480 ml Output Urine Total 1350 ml 700 ml # Bowel Movements 1 Laboratory Tests 01/30/17 22:22: Prealbumin [Pending] 01/31/17 05:50: Sodium Level 139, Potassium Level 3.9, Chloride Level 97L, Carbon Dioxide Level 30, Anion Gap 12, Blood Urea Nitrogen 24H, Creatinine 0.5L, Estimat Glomerular Filtration Rate > 60, Glucose Level 111H, Uric Acid 2.7L, Calcium Level 8.5L, Phosphorus Level 4.9H, Magnesium Level 2.3, Total Bilirubin 0.2, Aspartate Amino Transf (AST/SGOT) 30, Alanine Aminotransferase (ALT/SGPT) 18, Alkaline Phosphatase 63, C-Reactive Protein, Quantitative 13.9H, Pro-B-Type Natriuretic Peptide 3076H, Total Protein 6.3L, Albumin 2.4L, Globulin 3.9, Albumin/Globulin Ratio 0.6L 01/31/17 09:22: White Blood Count 7.6, Red Blood Count 3.05L, Hemoglobin 9.5L, Hematocrit 29.0L , Mean Corpuscular Volume 95, Mean Corpuscular Hemoglobin 31.0, Mean Corpuscular Hemoglobin Concent 32.6, Red Cell Distribution Width 13.7, Platelet Count 403, Mean Platelet Volume 5.0L, Neutrophils (%) (Auto) 79.3H, Lymphocytes (%) (Auto) 16.9L, Monocytes (%) (Auto) 3.0, Eosinophils (%) (Auto) 0.3, Basophils (%) (Auto) 0.5 Height (Feet): 5 Height (Inches): 9.00 Weight (Pounds): 120 General Appearance: no apparent distress EENT: normal ENT inspection Neck: non-tender Cardiovascular: normal peripheral pulses Respiratory/Chest: chest wall non-tender Abdomen: normal bowel sounds Extremities: normal range of motion Edema: no edema noted Leg (L), no edema noted Leg (R), no edema noted Pedal (L) , no edema noted Pedal (R), no edema noted Generalized Neurologic: aphasia Skin: warm/dry William Bradley Jan 31, 2017 15:52
[2017-01-31 16:10] VITALS: BP 126/79
[2017-01-31 23:20] VITALS: BP 95/63
[2017-02-01] VITALS (7 sets, daily range): BP systolic 85–118; BP diastolic 46–83
[2017-02-01] MEDS: Piperacillin/Tazobactam 3.375 GM in NS 110 ML IVPB SCH ×3 (05:44→21:43)
[2017-02-01] MEDS: Heparin 5000 units/ml inj SUBQ SCH ×3 (05:47→21:48)
[2017-02-01 08:05] LABS: BASOPHILS % (AUTO) 0.4 % (0.0-2.0); EOSINOPHILS % (AUTO) 0.2 % (0.0-3.0); LYMPHOCYTES % (AUTO) 15.1 % (20.0-45.0); MEAN CORPUSCULAR HEMOGLOBIN 30.7 PG (27.0-31.0); MEAN CORPUSCULAR VOLUME 96 FL (80-99); MEAN PLATELET VOLUME 5.2 FL (6.5-10.1); MONOCYTES % (AUTO) 4.9 % (1.0-10.0); NEUTROPHILS % (AUTO) 79.4 % (45.0-75.0); PLATELET COUNT 430 K/UL (150-450); RED BLOOD COUNT 3.34 M/UL (4.70-6.10); RED CELL DISTRIBUTION WIDTH 14.1 % (11.6-14.8); WHITE BLOOD COUNT 8.1 K/UL (4.8-10.8)
[2017-02-01 08:47] LABS: ANION GAP 9 (5-15); CALCIUM 8.6 mg/dL (8.6-10.2); CARBON DIOXIDE 31 mEQ/L (20-30); CHLORIDE 100 mEQ/L (98-107); CREATININE 0.6 mg/dL (0.7-1.2); GLOMERULAR FILTRATION RATE > 60 mL/min (>60); HEMOLYSIS 2; POTASSIUM 4.4 mEQ/L (3.4-4.9); SODIUM 140 mEQ/L (135-145)
--- NOTE | 2017-02-01 09:05 | General Progress Note ---
Assessment/Plan Status: stable - from renal stand Status Narrative stable Na Assessment/Plan HypoNatremia- depletional vs SIADH- DM, Proteinuria Pneumonia- PH: 1. History of hypertension. 2. Real's disease. 3. Psychosis. 4. Hyperlipidemia. 5. Diabetes. 6. Mood disorder. 7. Benign prostatic hypertrophy. Plan: On feeding stop IV lasix decrease Midodrin 3% saline- prn gastric support- Monitor Lytes- Keep BP and BS in check Subjective ROS Limited/Unobtainable: No Constitutional: Reports: malaise Allergies: Coded Allergies: No Known Allergies (Unverified , 10/23/14) Objective Last 24 Hour Vital Signs Date Time Temp Pulse Resp B/P Pulse Ox O2 Delivery O2 Flow Rate FiO2 02/01/17 08:03 98.2 78 20 97/70 95 Nasal Cannula 2.0 02/01/17 04:14 99.0 20 96/63 96 Nasal Cannula 3.0 02/01/17 04:14 68 02/01/17 01:01 66 01/31/17 23:20 97.9 91 20 95/63 95 Nasal Cannula 3.0 01/31/17 23:19 62 01/31/17 16:10 97.0 86 20 126/79 94 Nasal Cannula 3.0 01/31/17 16:00 66 01/31/17 12:07 97.5 61 20 104/64 95 Nasal Cannula 3.0 01/31/17 12:00 62 Intake and Output 01/31/17 02/01/17 18:59 06:59 Intake Total 1399.916 ml Output Total 700 ml 650 ml Balance 699.916 ml -650 ml Free Water 100 ml IV Total 859.916 ml Tube Feeding 440 ml Output Urine Total 700 ml 650 ml Laboratory Tests 01/31/17 09:22: White Blood Count 7.6, Red Blood Count 3.05L, Hemoglobin 9.5L, Hematocrit 29.0L , Mean Corpuscular Volume 95, Mean Corpuscular Hemoglobin 31.0, Mean Corpuscular Hemoglobin Concent 32.6, Red Cell Distribution Width 13.7, Platelet Count 403, Mean Platelet Volume 5.0L, Neutrophils (%) (Auto) 79.3H, Lymphocytes (%) (Auto) 16.9L, Monocytes (%) (Auto) 3.0, Eosinophils (%) (Auto) 0.3, Basophils (%) (Auto) 0.5 02/01/17 07:30: White Blood Count 8.1, Red Blood Count 3.34L, Hemoglobin 10.3L, Hematocrit 32.1L , Mean Corpuscular Volume 96, Mean Corpuscular Hemoglobin 30.7, Mean Corpuscular Hemoglobin Concent 32.0, Red Cell Distribution Width 14.1, Platelet Count 430, Mean Platelet Volume 5.2L, Neutrophils (%) (Auto) 79.4H, Lymphocytes (%) (Auto) 15.1L, Monocytes (%) (Auto) 4.9, Eosinophils (%) (Auto) 0.2, Basophils (%) (Auto) 0.4, Sodium Level 140, Potassium Level 4.4, Chloride Level 100, Carbon Dioxide Level 31H, Anion Gap 9, Blood Urea Nitrogen 26H, Creatinine 0.6L, Estimat Glomerular Filtration Rate > 60, Glucose Level 103, Calcium Level 8.6 Height (Feet): 5 Height (Inches): 9.00 Weight (Pounds): 120 General Appearance: no apparent distress Objective no change in PE SHILOH HUTSON Feb 01, 2017 09:05
[2017-02-01] MEDS: Pantoprazole 40mg pkt GT SCH (09:14)
[2017-02-01] MEDS: KCl 10% 20 mEq/15ml liquid GT SCH (09:14)
[2017-02-01] MEDS: Aspirin Baby 81mg GT SCH (09:14)
[2017-02-01] MEDS: Midodrine 10mg tab GT SCH ×3 (09:15→17:50)
--- NOTE | 2017-02-01 10:20 | General Progress Note ---
Assessment/Plan Problem List: (1) Laceration ICD Codes: T14.8 - Other injury of unspecified body region SNOMED: 686125453 (2) Closed head injury ICD Codes: S09.90XA - Unspecified injury of head, initial encounter SNOMED: 153385947639 (3) Fall ICD Codes: W19.XXXA - Unspecified fall, initial encounter SNOMED: 2320449 (4) Closed head injury ICD Codes: S09.90XA - Unspecified injury of head, initial encounter SNOMED: 206844404067 (5) Rash and other nonspecific skin eruption ICD Codes: R21 - Rash and other nonspecific skin eruption SNOMED: 440785782 (6) Abscess ICD Codes: L02.91 - Cutaneous abscess, unspecified SNOMED: 425373621 (7) Sepsis ICD Codes: A41.9 - Sepsis, unspecified organism SNOMED: 32618275 (8) Sacral pressure ulcer ICD Codes: L89.159 - Pressure ulcer of sacral region, unspecified stage SNOMED: 427641373 (9) HCAP (healthcare-associated pneumonia) ICD Codes: J18.9 - Pneumonia, unspecified organism SNOMED: 581084857 (10) Metcal[place] 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 SNOMED: 38044584 (11) Hyponatremia ICD Codes: E87.1 - Hypo-osmolality and hyponatremia SNOMED: 74428655 (12) Pneumonia ICD Codes: J18.9 - Pneumonia, unspecified organism SNOMED: 665698982 (13) Weakness generalized ICD Codes: R53.1 - Weakness SNOMED: 85350241 (14) Ear abrasion ICD Codes: S00.419A - Abrasion of unspecified ear, initial encounter SNOMED: 967377496 Status: stable, progressing, tolerating diet Assessment/Plan ot pt diet abx wound care cbc bmp am Subjective Constitutional: Reports: weakness Allergies: Coded Allergies: No Known Allergies (Unverified , 10/23/14) All Systems: reviewed and negative except above Subjective o2nc calm in bed Objective Last 24 Hour Vital Signs Date Time Temp Pulse Resp B/P Pulse Ox O2 Delivery O2 Flow Rate FiO2 02/01/17 08:03 98.2 78 20 97/70 95 Nasal Cannula 2.0 02/01/17 04:14 99.0 20 96/63 96 Nasal Cannula 3.0 02/01/17 04:14 68 02/01/17 01:01 66 01/31/17 23:20 97.9 91 20 95/63 95 Nasal Cannula 3.0 01/31/17 23:19 62 01/31/17 16:10 97.0 86 20 126/79 94 Nasal Cannula 3.0 01/31/17 16:00 66 01/31/17 12:07 97.5 61 20 104/64 95 Nasal Cannula 3.0 01/31/17 12:00 62 Intake and Output 01/31/17 02/01/17 19:00 07:00 Intake Total 1359.916 ml Output Total 700 ml 650 ml Balance 659.916 ml -650 ml Free Water 100 ml IV Total 859.916 ml Tube Feeding 400 ml Output Urine Total 700 ml 650 ml Laboratory Tests 02/01/17 07:30: White Blood Count 8.1, Red Blood Count 3.34L, Hemoglobin 10.3L, Hematocrit 32.1L , Mean Corpuscular Volume 96, Mean Corpuscular Hemoglobin 30.7, Mean Corpuscular Hemoglobin Concent 32.0, Red Cell Distribution Width 14.1, Platelet Count 430, Mean Platelet Volume 5.2L, Neutrophils (%) (Auto) 79.4H, Lymphocytes (%) (Auto) 15.1L, Monocytes (%) (Auto) 4.9, Eosinophils (%) (Auto) 0.2, Basophils (%) (Auto) 0.4, Sodium Level 140, Potassium Level 4.4, Chloride Level 100, Carbon Dioxide Level 31H, Anion Gap 9, Blood Urea Nitrogen 26H, Creatinine 0.6L, Estimat Glomerular Filtration Rate > 60, Glucose Level 103, Calcium Level 8.6 Height (Feet): 5 Height (Inches): 9.00 Weight (Pounds): 120 General Appearance: lethargic EENT: normal ENT inspection Neck: normal alignment Cardiovascular: normal peripheral pulses, normal rate, regular rhythm Respiratory/Chest: chest wall non-tender, lungs clear, normal breath sounds Abdomen: normal bowel sounds, non tender, soft Extremities: normal inspection Edema: no edema noted Arm (L), no edema noted Arm (R), no edema noted Leg (L), no edema noted Leg (R), no edema noted Pedal (L), no edema noted Pedal (R), no edema noted Generalized Neurologic: responsive, motor weakness Skin: normal pigmentation, warm/dry CANDELARIO BORREGO Feb 01, 2017 10:20
[2017-02-01] MEDS: Colistin for inhalation INH SCH ×2 (15:00→21:35)
--- NOTE | 2017-02-01 18:21 | General Progress Note ---
Assessment/Plan Assessment/Plan Hematology Progress Note ASSESSMENT: 1. Anemia 2/2 iron deficiency. 2. Decreased Hgb and hematocrit, r/o GI bleed. 3. Hyponatremia- now improved. 4. Hypertension. 5. Acute exacerbation of chronic encephalopathy. 6. Sepsis with sacral decubitis ulcerations- on abx 7. Psychiatric history. RECS: 1. Monitor counts. 2. Anemia workup has been ordered- pt had low iron, given IV iron. 3. Hb goals above 7. 4. Peripheral smear to be reviewed. 5. Medications reviewed. Potential culprits include Depakote; however, the patient has been on this for long period of time. 6. Abx per ID service. 7. Appreciate neurology as well as ID recommendations. 8. Discussed with staff. Subjective Constitutional: Reports: no symptoms HEENT: Reports: no symptoms Cardiovascular: Reports: no symptoms Respiratory: Reports: no symptoms Gastrointestinal/Abdominal: Reports: no symptoms Genitourinary: Reports: no symptoms Neurologic/Psychiatric: Reports: no symptoms Endocrine: Reports: no symptoms Hematologic/Lymphatic: Reports: anemia Allergies: Coded Allergies: No Known Allergies (Unverified , 10/23/14) Subjective 2L NC, nonverbal, no bleeding, NAD Objective Last 24 Hour Vital Signs Date Time Temp Pulse Resp B/P Pulse Ox O2 Delivery O2 Flow Rate FiO2 02/01/17 15:59 97.9 70 21 118/83 95 Nasal Cannula 2.0 02/01/17 15:11 82 18 97 Nasal Cannula 3.0 32 02/01/17 15:00 Nasal Cannula 3.0 32 02/01/17 15:00 94 Nasal Cannula 3.0 32 02/01/17 15:00 84 18 Nasal Cannula 3.0 32 02/01/17 15:00 84 18 94 Nasal Cannula 3.0 32 02/01/17 12:17 98.2 69 20 94/55 96 Nasal Cannula 2.0 02/01/17 11:12 77 101/70 02/01/17 08:03 98.2 78 20 97/70 95 Nasal Cannula 2.0 02/01/17 08:00 78 02/01/17 04:14 99.0 20 96/63 96 Nasal Cannula 3.0 02/01/17 04:14 68 02/01/17 01:01 66 01/31/17 23:20 97.9 91 20 95/63 95 Nasal Cannula 3.0 01/31/17 23:19 62 Intake and Output 01/31/17 02/01/17 19:00 07:00 Intake Total 1359.916 ml 67.5 ml Output Total 700 ml 650 ml Balance 659.916 ml -582.5 ml Free Water 100 ml IV Total 859.916 ml 27.5 ml Tube Feeding 400 ml 40 ml Output Urine Total 700 ml 650 ml Laboratory Tests 02/01/17 07:30: White Blood Count 8.1, Red Blood Count 3.34L, Hemoglobin 10.3L, Hematocrit 32.1L , Mean Corpuscular Volume 96, Mean Corpuscular Hemoglobin 30.7, Mean Corpuscular Hemoglobin Concent 32.0, Red Cell Distribution Width 14.1, Platelet Count 430, Mean Platelet Volume 5.2L, Neutrophils (%) (Auto) 79.4H, Lymphocytes (%) (Auto) 15.1L, Monocytes (%) (Auto) 4.9, Eosinophils (%) (Auto) 0.2, Basophils (%) (Auto) 0.4, Sodium Level 140, Potassium Level 4.4, Chloride Level 100, Carbon Dioxide Level 31H, Anion Gap 9, Blood Urea Nitrogen 26H, Creatinine 0.6L, Estimat Glomerular Filtration Rate > 60, Glucose Level 103, Calcium Level 8.6 Height (Feet): 5 Height (Inches): 9.00 Weight (Pounds): 120 General Appearance: WD/WN EENT: normal ENT inspection Neck: non-tender Cardiovascular: normal peripheral pulses Respiratory/Chest: chest wall non-tender Abdomen: normal bowel sounds Extremities: normal range of motion Edema: no edema noted Leg (L), no edema noted Leg (R), no edema noted Pedal (L) , no edema noted Pedal (R), no edema noted Generalized 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
--- NOTE | 2017-02-01 22:46 | Neurology Progress Note ---
Interim History Interim History Interim History Mr. Murray continues to be non verbal. He continues to be subdued. His choreoathetotic movements are about the same. He continues to be cognitively impoverished and generally weak. Review of Systems Neuro Review of Systems Unable to obtain. Objective Physical Exam Last Vital Signs Date Time Temp Pulse Resp B/P Pulse Ox O2 Delivery O2 Flow Rate FiO2 02/01/17 21:45 68 18 99 Nasal Cannula 3.0 32 02/01/17 19:41 98.2 105/63 Laboratory Tests Test 02/01/17 07:30 White Blood Count 8.1 K/UL (4.8-10.8) Red Blood Count 3.34 M/UL (4.70-6.10) L Hemoglobin 10.3 G/DL (14.2-18.0) L Hematocrit 32.1 % (42.0-52.0) L Mean Corpuscular Volume 96 FL (80-99) Mean Corpuscular Hemoglobin 30.7 PG (27.0-31.0) Mean Corpuscular Hemoglobin Concent 32.0 G/DL (32.0-36.0) Red Cell Distribution Width 14.1 % (11.6-14.8) Platelet Count 430 K/UL (150-450) Mean Platelet Volume 5.2 FL (6.5-10.1) L Neutrophils (%) (Auto) 79.4 % (45.0-75.0) H Lymphocytes (%) (Auto) 15.1 % (20.0-45.0) L Monocytes (%) (Auto) 4.9 % (1.0-10.0) Eosinophils (%) (Auto) 0.2 % (0.0-3.0) Basophils (%) (Auto) 0.4 % (0.0-2.0) Sodium Level 140 mEQ/L (135-145) Potassium Level 4.4 mEQ/L (3.4-4.9) Chloride Level 100 mEQ/L (98-107) Carbon Dioxide Level 31 mEQ/L (20-30) H Anion Gap 9 (5-15) Blood Urea Nitrogen 26 mg/dL (7-23) H Creatinine 0.6 mg/dL (0.7-1.2) L Estimat Glomerular Filtration Rate > 60 mL/min (>60) Glucose Level 103 mg/dL (74-106) Calcium Level 8.6 mg/dL (8.6-10.2) Neurologic Exam Objective PHYSICAL EXAMINATION: GENERAL: He is a well-developed, but lean and cachectic-looking gentleman, lying in bed, in a position. HEAD: Normocephalic and atraumatic. EENT: Examination benign. NECK: No neck rigidity was observed. NEUROLOGICAL EXAMINATION: MENTAL STATUS EXAMINATION: He was awake and alert. He was not communicative. He was unable to cooperate for further mental status testing. SPEECH: He was mute. LANGUAGE: Could not be tested. CRANIAL NERVE EXAMINATION: II: He did blink to threat in all dimas. He, however, was unable to cooperate for confrontation testing and in addition was also unable to count fingers. III, IV & : The external ocular movements were full and the pupils 3 mm in diameter, equal, round, regular, and reactive to light. V: He had normal facial sensations and the temporales, masseters, and pterygoids functioned normally. VII: He had normal facial expressions and no facial asymmetry. VIII: He was able to hear and had no nystagmus. IX: The palate moved symmetrically on phonation. X: He had no hoarseness of voice. XI: The sternocleidomastoids and trapezii functioned normally. XII: The tongue was in the midline without any fasciculations or atrophy. MOTOR SYSTEM: The tone was increased in all four extremities with spasticity. Examination of muscle mass revealed severe generalized muscle wasting involving the lower extremities more than the upper extremities. Examination of power was impossible to perform on individual muscle groups. He had a significant quadriparesis involving the lower extremities more than the upper extremities. SENSORY EXAMINATION: He responded appropriately to deep pain. He was unable to cooperate for other sensory modalities. REFLEXES: 1+ and bilaterally symmetrical at the biceps, triceps, and brachioradialis. 2+ at both knees. 0 at both ankles. The plantar responses were flexor bilaterally. COORDINATION, STANCE & GAIT: Could not be tested. ABNORMAL MOVEMENTS: He exhibited choreoathetotic movements involving all his extremities and the facial muscles. In addition, he also exhibited bruxism. Impression/Recommendations Diagnostic Impression 1. Mr. Reece Murray is a 61-year-old, gentleman, of unknown handedness, who has a long history of Khalida's disease, who was hospitalized for "a change in mental state and generalized weakness." 2. He continues to be non verbal and subdued. He continues to exhibit choreoathetotic movements. He continues to be cognitively impoverished and weak. 3. On neurological examination, at this time, he does demonstrate global cerebral dysfunction. He is mute and is unable to cooperate for further mental status testing. He also demonstrates generalized weakness and generalized wasting of the muscles. His deep tendon reflexes are globally diminished. He , in addition, exhibits choreoathetotic movements of all his extremities and facial muscles. 4. Laboratory data on initial evaluation revealed that he was significantly hyponatremic with a sodium of 127. His CK was elevated to 226. He was significantly hypoalbuminemic with an albumin of 2.6. His CBC revealed that he is anemic with a hemoglobin of 10.4 and his urinalysis revealed 1+ leukocyte esterase, 0 to 2 red blood cells per high-power field, 2 to 4 white blood cells per high-power field, and a few urinary bacteria. 5. His B12 and TSH are normal. 6. 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 7. His encephalopathy is stable. Recommendations 1. Continue present management. 2. Aggressive treatment of the patient's infectious process. 3. Correction of the patient's metabolic dysfunction. 4. Observe closely. Fantasma Reid M.D., M.S.P.H. FANTASMA REID Feb 01, 2017 22:46
--- NOTE | 2017-02-01 23:04 | Infectious Diseases Prog Note ---
Assessment/Plan Problems: (1) Sepsis Assessment & Plan: Resolved. Due to HCAP and wound infection. (2) HCAP (healthcare-associated pneumonia) Assessment & Plan: SCx noted. Could be colonized. Given clinically overall improved. Will check a F/u CXR and decide if the MDRO need to be treated. Continue with Zosyn for now. (3) Sacral pressure ulcer Assessment & Plan: Infected. Wound culture noted. Now on Zyvox and Zosyn. Taper Zosyn depending on CXR. 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 (5) Multiple wounds Assessment & Plan: Some abrasions due to extreme repetitive, uncontrolled chorea. Some pressure ulcers. Some with secondary infections. Continue with wound care. Subjective Allergies: Coded Allergies: No Known Allergies (Unverified , 10/23/14) Objective Vital Signs Last 24 Hour Vital Signs Date Time Temp Pulse Resp B/P Pulse Ox O2 Delivery O2 Flow Rate FiO2 02/01/17 21:45 68 18 99 Nasal Cannula 3.0 32 02/01/17 21:35 65 18 95 Nasal Cannula 3.0 32 02/01/17 19:58 Nasal Cannula 3.0 32 02/01/17 19:58 96 Nasal Cannula 3.0 32 02/01/17 19:41 98.2 62 14 105/63 94 Nasal Cannula 02/01/17 15:59 97.9 70 21 118/83 95 Nasal Cannula 2.0 02/01/17 15:11 82 18 97 Nasal Cannula 3.0 32 02/01/17 15:00 Nasal Cannula 3.0 32 02/01/17 15:00 94 Nasal Cannula 3.0 32 02/01/17 15:00 84 18 Nasal Cannula 3.0 32 02/01/17 15:00 84 18 94 Nasal Cannula 3.0 32 02/01/17 12:17 98.2 69 20 94/55 96 Nasal Cannula 2.0 02/01/17 11:12 77 101/70 02/01/17 08:03 98.2 78 20 97/70 95 Nasal Cannula 2.0 02/01/17 08:00 78 02/01/17 04:14 99.0 20 96/63 96 Nasal Cannula 3.0 02/01/17 04:14 68 02/01/17 01:01 66 01/31/17 23:20 97.9 91 20 95/63 95 Nasal Cannula 3.0 01/31/17 23:19 62 Height (Feet): 5 Height (Inches): 9.00 Weight (Pounds): 120 Laboratory Tests Test 02/01/17 07:30 White Blood Count 8.1 K/UL (4.8-10.8) Red Blood Count 3.34 M/UL (4.70-6.10) L Hemoglobin 10.3 G/DL (14.2-18.0) L Hematocrit 32.1 % (42.0-52.0) L Mean Corpuscular Volume 96 FL (80-99) Mean Corpuscular Hemoglobin 30.7 PG (27.0-31.0) Mean Corpuscular Hemoglobin Concent 32.0 G/DL (32.0-36.0) Red Cell Distribution Width 14.1 % (11.6-14.8) Platelet Count 430 K/UL (150-450) Mean Platelet Volume 5.2 FL (6.5-10.1) L Neutrophils (%) (Auto) 79.4 % (45.0-75.0) H Lymphocytes (%) (Auto) 15.1 % (20.0-45.0) L Monocytes (%) (Auto) 4.9 % (1.0-10.0) Eosinophils (%) (Auto) 0.2 % (0.0-3.0) Basophils (%) (Auto) 0.4 % (0.0-2.0) Sodium Level 140 mEQ/L (135-145) Potassium Level 4.4 mEQ/L (3.4-4.9) Chloride Level 100 mEQ/L (98-107) Carbon Dioxide Level 31 mEQ/L (20-30) H Anion Gap 9 (5-15) Blood Urea Nitrogen 26 mg/dL (7-23) H Creatinine 0.6 mg/dL (0.7-1.2) L Estimat Glomerular Filtration Rate > 60 mL/min (>60) Glucose Level 103 mg/dL (74-106) Calcium Level 8.6 mg/dL (8.6-10.2) Current Medications Medications (Trade) Dose Ordered Sig/Poornima Route PRN Reason Start Time Stop Time Status Last Admin Dose Admin Aspirin (ASA) 81 mg DAILY GT 02/02/17 09:00 03/04/17 08:59 Colistimethate Sodium (Colistin *inhalation use only*) 150 mg Q12HRT INH 02/01/17 13:00 02/08/17 12:59 02/01/17 21:35 Heparin Sodium (Porcine) (Heparin 5000 units/ml) 5,000 units EVERY 8 HOURS SUBQ 02/01/17 14:00 03/03/17 13:59 02/01/17 21:48 Linezolid 300 ml @ 300 mls/hr Q12HR IVPB 02/01/17 21:00 02/08/17 20:59 02/01/17 20:13 Midodrine (Pro-Amatine) 5 mg THREE TIMES A DAY GT 02/01/17 13:00 03/03/17 12:59 02/01/17 17:50 Olanzapine (ZyPREXA) 2.5 mg Q4H PRN GT Agitation 02/01/17 12:15 03/03/17 12:14 Pantoprazole (Protonix) 40 mg DAILY GT 02/02/17 09:00 03/04/17 08:59 Piperacillin Sod/ Tazobactam Sod/ Sodium Chloride (Zosyn/Sodium Chloride) 110 ml @ 27.5 mls/hr Q8HR IVPB 02/01/17 14:00 02/08/17 13:59 02/01/17 21:43 Potassium Chloride (KCl 10% 20 mEq oral solution) 20 meq DAILY GT 02/02/17 09:00 03/04/17 08:59 TANNER SIMEON Feb 01, 2017 23:04
[2017-02-02 04:00] VITALS: BP 98/47
[2017-02-02] MEDS: Piperacillin/Tazobactam 3.375 GM in NS 110 ML IVPB SCH ×3 (06:04→21:57)
[2017-02-02] MEDS: Heparin 5000 units/ml inj SUBQ SCH ×3 (06:05→22:04)
[2017-02-02 07:12] LABS: LYMPHOCYTES % (AUTO) 19.8 % (20.0-45.0); MEAN CORPUSCULAR HEMOGLOBIN 30.4 PG (27.0-31.0); MEAN CORPUSCULAR HGB CONC 31.6 G/DL (32.0-36.0); MEAN CORPUSCULAR VOLUME 96 FL (80-99); MEAN PLATELET VOLUME 5.3 FL (6.5-10.1); MONOCYTES % (AUTO) 5.2 % (1.0-10.0); NEUTROPHILS % (AUTO) 71.9 % (45.0-75.0); PLATELET COUNT 434 K/UL (150-450); RED BLOOD COUNT 3.25 M/UL (4.70-6.10); RED CELL DISTRIBUTION WIDTH 14.3 % (11.6-14.8); WHITE BLOOD COUNT 5.6 K/UL (4.8-10.8)
--- NOTE | 2017-02-02 07:29 | General Progress Note ---
Assessment/Plan Problem List: (1) Laceration ICD Codes: T14.8 - Other injury of unspecified body region SNOMED: 370511846 (2) Closed head injury ICD Codes: S09.90XA - Unspecified injury of head, initial encounter SNOMED: 770809267993 (3) Fall ICD Codes: W19.XXXA - Unspecified fall, initial encounter SNOMED: 1919555 (4) Closed head injury ICD Codes: S09.90XA - Unspecified injury of head, initial encounter SNOMED: 253370236693 (5) Rash and other nonspecific skin eruption ICD Codes: R21 - Rash and other nonspecific skin eruption SNOMED: 861387489 (6) Abscess ICD Codes: L02.91 - Cutaneous abscess, unspecified SNOMED: 151928252 (7) Sepsis ICD Codes: A41.9 - Sepsis, unspecified organism SNOMED: 86500755 (8) Sacral pressure ulcer ICD Codes: L89.159 - Pressure ulcer of sacral region, unspecified stage SNOMED: 294743254 (9) HCAP (healthcare-associated pneumonia) ICD Codes: J18.9 - Pneumonia, unspecified organism SNOMED: 491979144 (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 SNOMED: 17038788 (11) Hyponatremia ICD Codes: E87.1 - Hypo-osmolality and hyponatremia SNOMED: 94876006 (12) Pneumonia ICD Codes: J18.9 - Pneumonia, unspecified organism SNOMED: 739595560 (13) Weakness generalized ICD Codes: R53.1 - Weakness SNOMED: 39422709 (14) Ear abrasion ICD Codes: S00.419A - Abrasion of unspecified ear, initial encounter SNOMED: 945459755 Status: stable, progressing, tolerating diet Assessment/Plan ot pt diet abx wound care cbc bmp am Subjective Constitutional: Reports: weakness Allergies: Coded Allergies: No Known Allergies (Unverified , 10/23/14) All Systems: reviewed and negative except above Subjective o2nc calm in bed Objective Last 24 Hour Vital Signs Date Time Temp Pulse Resp B/P Pulse Ox O2 Delivery O2 Flow Rate FiO2 02/02/17 04:00 97.9 60 15 98/47 96 Nasal Cannula 02/01/17 23:39 97.9 63 14 85/46 97 Room Air 02/01/17 21:45 68 18 99 Nasal Cannula 3.0 32 02/01/17 21:35 65 18 95 Nasal Cannula 3.0 32 02/01/17 19:58 Nasal Cannula 3.0 32 02/01/17 19:58 96 Nasal Cannula 3.0 32 02/01/17 19:41 98.2 62 14 105/63 94 Nasal Cannula 02/01/17 15:59 97.9 70 21 118/83 95 Nasal Cannula 2.0 02/01/17 15:11 82 18 97 Nasal Cannula 3.0 32 02/01/17 15:00 Nasal Cannula 3.0 32 02/01/17 15:00 94 Nasal Cannula 3.0 32 02/01/17 15:00 84 18 Nasal Cannula 3.0 32 02/01/17 15:00 84 18 94 Nasal Cannula 3.0 32 02/01/17 12:17 98.2 69 20 94/55 96 Nasal Cannula 2.0 02/01/17 11:12 77 101/70 02/01/17 08:03 98.2 78 20 97/70 95 Nasal Cannula 2.0 02/01/17 08:00 78 Intake and Output 02/01/17 02/02/17 19:00 07:00 Intake Total 1095.0 ml Output Total 800 ml 450 ml Balance 295.0 ml -450 ml Intake Oral 0 ml Free Water 150 ml IV Total 465.0 ml Tube Feeding 480 ml Output Urine Total 800 ml 450 ml Laboratory Tests 02/01/17 07:30: White Blood Count 8.1, Red Blood Count 3.34L, Hemoglobin 10.3L, Hematocrit 32.1L , Mean Corpuscular Volume 96, Mean Corpuscular Hemoglobin 30.7, Mean Corpuscular Hemoglobin Concent 32.0, Red Cell Distribution Width 14.1, Platelet Count 430, Mean Platelet Volume 5.2L, Neutrophils (%) (Auto) 79.4H, Lymphocytes (%) (Auto) 15.1L, Monocytes (%) (Auto) 4.9, Eosinophils (%) (Auto) 0.2, Basophils (%) (Auto) 0.4, Sodium Level 140, Potassium Level 4.4, Chloride Level 100, Carbon Dioxide Level 31H, Anion Gap 9, Blood Urea Nitrogen 26H, Creatinine 0.6L, Estimat Glomerular Filtration Rate > 60, Glucose Level 103, Calcium Level 8.6 02/02/17 04:50: White Blood Count [Pending], Red Blood Count [Pending], Hemoglobin [Pending], Hematocrit [Pending], Mean Corpuscular Volume [Pending], Mean Corpuscular Hemoglobin [Pending], Mean Corpuscular Hemoglobin Concent [Pending], Red Cell Distribution Width [Pending], Platelet Count [Pending], Mean Platelet Volume [ Pending], Neutrophils (%) (Auto) [Pending], Lymphocytes (%) (Auto) [Pending], Monocytes (%) (Auto) [Pending], Eosinophils (%) (Auto) [Pending], Basophils (%) (Auto) [Pending], Sodium Level [Pending], Potassium Level [Pending], Chloride Level [Pending], Carbon Dioxide Level [Pending], Blood Urea Nitrogen [Pending], Creatinine [Pending], Estimat Glomerular Filtration Rate [Pending], Glucose Level [Pending], Calcium Level [Pending] Height (Feet): 5 Height (Inches): 9.00 Weight (Pounds): 120 General Appearance: lethargic EENT: normal ENT inspection Neck: normal alignment Cardiovascular: normal peripheral pulses, normal rate, regular rhythm Respiratory/Chest: chest wall non-tender, lungs clear, normal breath sounds Abdomen: normal bowel sounds, non tender, soft Extremities: normal inspection Edema: no edema noted Arm (L), no edema noted Arm (R), no edema noted Leg (L), no edema noted Leg (R), no edema noted Pedal (L), no edema noted Pedal (R), no edema noted Generalized Neurologic: responsive, motor weakness Skin: normal pigmentation, warm/dry CANDELARIO BORREGO Feb 02, 2017 07:29
[2017-02-02 07:31] LABS: CALCIUM 8.3 mg/dL (8.6-10.2); CHLORIDE 100 mEQ/L (98-107); POTASSIUM 4.4 mEQ/L (3.4-4.9); SODIUM 138 mEQ/L (135-145)
[2017-02-02 07:47] LABS: ANION GAP 13 (5-15); CARBON DIOXIDE 25 mEQ/L (20-30); CREATININE 0.6 mg/dL (0.7-1.2); GLOMERULAR FILTRATION RATE > 60 mL/min (>60); HEMOLYSIS 8
[2017-02-02 08:00] VITALS: BP 126/67
[2017-02-02] MEDS: Colistin for inhalation INH SCH ×2 (08:43→22:19)
[2017-02-02] MEDS ORDERED: Pantoprazole 40mg pkt GT SCH (09:00)
[2017-02-02] MEDS: Midodrine 10mg tab GT SCH ×3 (09:34→18:08)
[2017-02-02] MEDS: KCl 10% 20 mEq/15ml liquid GT SCH (09:35)
[2017-02-02] MEDS: Aspirin Baby 81mg GT SCH (09:35)
--- NOTE | 2017-02-02 09:44 | Diagnostic Imaging Report ---
Indications: Shortness of breath Technique: Portable AP chest Findings: Comparison: 01/27/17 Patchy ovular opacities in the right mid and lower lung have decreased. Background right midlung, bilateral lower lung interstitial prominence persists, perhaps also decreased. Inspiratory effort has improved. Heart size remains within normal limits. No pleural abnormalities detected. IMPRESSION: Improvement in right lung alveolar, bilateral interstitial opacities compatible with resolving congestive change versus pneumonitis
--- NOTE | 2017-02-02 11:14 | General Progress Note ---
Assessment/Plan Status: stable - from renal stand Status Narrative Na 138 Assessment/Plan HypoNatremia- depletional vs SIADH- DM, Proteinuria Pneumonia- PH: 1. History of hypertension. 2. Khalida's disease. 3. Psychosis. 4. Hyperlipidemia. 5. Diabetes. 6. Mood disorder. 7. Benign prostatic hypertrophy. Plan: On feeding stop IV lasix decrease Midodrin 3% saline- prn gastric support- Monitor Lytes- Keep BP and BS in check Subjective ROS Limited/Unobtainable: No Constitutional: Reports: malaise, weakness Allergies: Coded Allergies: No Known Allergies (Unverified , 10/23/14) Objective Last 24 Hour Vital Signs Date Time Temp Pulse Resp B/P Pulse Ox O2 Delivery O2 Flow Rate FiO2 02/02/17 08:49 32 02/02/17 08:49 61 20 95 Nasal Cannula 3.0 32 02/02/17 08:48 95 Nasal Cannula 3.0 32 02/02/17 08:48 Nasal Cannula 3.0 32 02/02/17 08:00 97.7 61 20 126/67 95 Nasal Cannula 3.0 02/02/17 04:00 97.9 60 15 98/47 96 Nasal Cannula 02/01/17 23:39 97.9 63 14 85/46 97 Room Air 02/01/17 21:45 68 18 99 Nasal Cannula 3.0 32 02/01/17 21:35 65 18 95 Nasal Cannula 3.0 32 02/01/17 19:58 Nasal Cannula 3.0 32 02/01/17 19:58 96 Nasal Cannula 3.0 32 02/01/17 19:41 98.2 62 14 105/63 94 Nasal Cannula 02/01/17 15:59 97.9 70 21 118/83 95 Nasal Cannula 2.0 02/01/17 15:11 82 18 97 Nasal Cannula 3.0 32 02/01/17 15:00 Nasal Cannula 3.0 32 02/01/17 15:00 94 Nasal Cannula 3.0 32 02/01/17 15:00 84 18 Nasal Cannula 3.0 32 02/01/17 15:00 84 18 94 Nasal Cannula 3.0 32 02/01/17 12:17 98.2 69 20 94/55 96 Nasal Cannula 2.0 Intake and Output 02/01/17 02/02/17 19:00 07:00 Intake Total 1095.0 ml Output Total 800 ml 450 ml Balance 295.0 ml -450 ml Intake Oral 0 ml Free Water 150 ml IV Total 465.0 ml Tube Feeding 480 ml Output Urine Total 800 ml 450 ml Laboratory Tests 02/02/17 04:50: White Blood Count 5.6, Red Blood Count 3.25L, Hemoglobin 9.9L, Hematocrit 31.3L , Mean Corpuscular Volume 96, Mean Corpuscular Hemoglobin 30.4, Mean Corpuscular Hemoglobin Concent 31.6L, Red Cell Distribution Width 14.3, Platelet Count 434, Mean Platelet Volume 5.3L, Neutrophils (%) (Auto) 71.9, Lymphocytes (%) (Auto) 19.8L, Monocytes (%) (Auto) 5.2, Eosinophils (%) (Auto) 2.0, Basophils (%) (Auto) 1.0, Sodium Level 138, Potassium Level 4.4, Chloride Level 100, Carbon Dioxide Level 25, Anion Gap 13, Blood Urea Nitrogen 24H, Creatinine 0.6L, Estimat Glomerular Filtration Rate > 60, Glucose Level 91, Calcium Level 8.3L Height (Feet): 5 Height (Inches): 9.00 Weight (Pounds): 120 General Appearance: no apparent distress Objective no change in PE SHILOH HUTSON Feb 02, 2017 11:14
[2017-02-02 12:00] VITALS: BP 133/71
[2017-02-02] MEDS ORDERED: Sterile Water Irrig 1000ml IRRIG ONE (14:02)
[2017-02-02 16:00] VITALS: BP 121/58
[2017-02-02 19:00] VITALS: BP 83/56
--- NOTE | 2017-02-02 20:25 | Neurology Progress Note ---
Interim History Interim History Interim History Mr. Murray is non verbal. He continues to be subdued. His choreoathetotic movements are about the same. He continues to be cognitively impoverished and generally weak. There has been no significant change in his condition. Review of Systems Neuro Review of Systems Unable to obtain. Objective Physical Exam Last Vital Signs Date Time Temp Pulse Resp B/P Pulse Ox O2 Delivery O2 Flow Rate FiO2 02/02/17 16:00 97.7 63 20 121/58 97 Nasal Cannula 3.0 02/02/17 08:59 32 Laboratory Tests Test 02/02/17 04:50 White Blood Count 5.6 K/UL (4.8-10.8) Red Blood Count 3.25 M/UL (4.70-6.10) L Hemoglobin 9.9 G/DL (14.2-18.0) L Hematocrit 31.3 % (42.0-52.0) L Mean Corpuscular Volume 96 FL (80-99) Mean Corpuscular Hemoglobin 30.4 PG (27.0-31.0) Mean Corpuscular Hemoglobin Concent 31.6 G/DL (32.0-36.0) L Red Cell Distribution Width 14.3 % (11.6-14.8) Platelet Count 434 K/UL (150-450) Mean Platelet Volume 5.3 FL (6.5-10.1) L Neutrophils (%) (Auto) 71.9 % (45.0-75.0) Lymphocytes (%) (Auto) 19.8 % (20.0-45.0) L Monocytes (%) (Auto) 5.2 % (1.0-10.0) Eosinophils (%) (Auto) 2.0 % (0.0-3.0) Basophils (%) (Auto) 1.0 % (0.0-2.0) Sodium Level 138 mEQ/L (135-145) Potassium Level 4.4 mEQ/L (3.4-4.9) Chloride Level 100 mEQ/L (98-107) Carbon Dioxide Level 25 mEQ/L (20-30) Anion Gap 13 (5-15) Blood Urea Nitrogen 24 mg/dL (7-23) H Creatinine 0.6 mg/dL (0.7-1.2) L Estimat Glomerular Filtration Rate > 60 mL/min (>60) Glucose Level 91 mg/dL (74-106) Calcium Level 8.3 mg/dL (8.6-10.2) L Neurologic Exam Objective PHYSICAL EXAMINATION: GENERAL: He is a well-developed, but lean and cachectic-looking gentleman, lying in bed, in a position. HEAD: Normocephalic and atraumatic. EENT: Examination benign. NECK: No neck rigidity was observed. NEUROLOGICAL EXAMINATION: MENTAL STATUS EXAMINATION: He was awake and alert. He was not communicative. He was unable to cooperate for further mental status testing. SPEECH: He was mute. LANGUAGE: Could not be tested. CRANIAL NERVE EXAMINATION: II: He did blink to threat in all dimas. He, however, was unable to cooperate for confrontation testing and in addition was also unable to count fingers. III, IV & : The external ocular movements were full and the pupils 3 mm in diameter, equal, round, regular, and reactive to light. V: He had normal facial sensations and the temporales, masseters, and pterygoids functioned normally. VII: He had normal facial expressions and no facial asymmetry. VIII: He was able to hear and had no nystagmus. IX: The palate moved symmetrically on phonation. X: He had no hoarseness of voice. XI: The sternocleidomastoids and trapezii functioned normally. XII: The tongue was in the midline without any fasciculations or atrophy. MOTOR SYSTEM: The tone was increased in all four extremities with spasticity. Examination of muscle mass revealed severe generalized muscle wasting involving the lower extremities more than the upper extremities. Examination of power was impossible to perform on individual muscle groups. He had a significant quadriparesis involving the lower extremities more than the upper extremities. SENSORY EXAMINATION: He responded appropriately to deep pain. He was unable to cooperate for other sensory modalities. REFLEXES: 1+ and bilaterally symmetrical at the biceps, triceps, and brachioradialis. 2+ at both knees. 0 at both ankles. The plantar responses were flexor bilaterally. COORDINATION, STANCE & GAIT: Could not be tested. ABNORMAL MOVEMENTS: He exhibited choreoathetotic movements involving all his extremities and the facial muscles. In addition, he also exhibited bruxism. Impression/Recommendations Diagnostic Impression 1. Mr. Reece Murray is a 61-year-old, gentleman, of unknown handedness, who has a long history of Khalida's disease, who was hospitalized for "a change in mental state and generalized weakness." 2. He continues to be non verbal and subdued. He continues to exhibit choreoathetotic movements. He continues to be cognitively impoverished and weak. 3. On neurological examination, at this time, he does demonstrate global cerebral dysfunction. He is mute and is unable to cooperate for further mental status testing. He also demonstrates generalized weakness and generalized wasting of the muscles. His deep tendon reflexes are globally diminished. He , in addition, exhibits choreoathetotic movements of all his extremities and facial muscles. 4. Laboratory data on initial evaluation revealed that he was significantly hyponatremic with a sodium of 127. His CK was elevated to 226. He was significantly hypoalbuminemic with an albumin of 2.6. His CBC revealed that he is anemic with a hemoglobin of 10.4 and his urinalysis revealed 1+ leukocyte esterase, 0 to 2 red blood cells per high-power field, 2 to 4 white blood cells per high-power field, and a few urinary bacteria. 5. His B12 and TSH are normal. 6. 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 7. His encephalopathy is stable. Recommendations 1. Continue present management. 2. Aggressive treatment of the patient's infectious process. 3. Correction of the patient's metabolic dysfunction. 4. Observe closely. Fantasma Reid M.D., M.S.P.H. FANTASMA REID Feb 02, 2017 20:25
[2017-02-02 22:00] VITALS: BP 90/51
--- NOTE | 2017-02-02 22:56 | General Progress Note ---
Assessment/Plan Assessment/Plan Hematology Progress Note ASSESSMENT: 1. Anemia 2/2 iron deficiency. 2. Decreased Hgb and hematocrit, r/o GI bleed. 3. Hyponatremia- now improved. 4. Hypertension. 5. Acute exacerbation of chronic encephalopathy. 6. Sepsis with sacral decubitis ulcerations- on abx 7. Psychiatric history. RECS: 1. Monitor counts. 2. Anemia workup has been ordered- pt had low iron, given IV iron. 3. Hb goals above 7. 4. Peripheral smear reviewed. 5. Medications reviewed. Potential culprits include Depakote; however, the patient has been on this for long period of time. 6. Abx per ID service. 7. Appreciate neurology as well as ID recommendations. 8. Discussed with staff. Subjective Constitutional: Reports: no symptoms HEENT: Reports: no symptoms Cardiovascular: Reports: no symptoms Respiratory: Reports: no symptoms Gastrointestinal/Abdominal: Reports: no symptoms Genitourinary: Reports: no symptoms Neurologic/Psychiatric: Reports: no symptoms Endocrine: Reports: no symptoms Hematologic/Lymphatic: Reports: anemia Allergies: Coded Allergies: No Known Allergies (Unverified , 10/23/14) Subjective 2L NC, nonverbal, no bleeding, NAD Objective Last 24 Hour Vital Signs Date Time Temp Pulse Resp B/P Pulse Ox O2 Delivery O2 Flow Rate FiO2 02/02/17 22:29 58 18 97 Nasal Cannula 3.0 32 02/02/17 22:19 67 20 96 Nasal Cannula 3.0 32 02/02/17 22:19 96 Nasal Cannula 3.0 32 02/02/17 22:19 Nasal Cannula 3.0 32 02/02/17 22:19 32 02/02/17 19:00 98.0 68 18 83/56 96 Nasal Cannula 2.0 02/02/17 16:00 97.7 63 20 121/58 97 Nasal Cannula 3.0 02/02/17 12:00 97.7 100 20 133/71 95 Nasal Cannula 3.0 02/02/17 08:59 65 18 96 Nasal Cannula 3.0 32 02/02/17 08:49 32 02/02/17 08:49 61 20 95 Nasal Cannula 3.0 32 02/02/17 08:48 95 Nasal Cannula 3.0 32 02/02/17 08:48 Nasal Cannula 3.0 32 02/02/17 08:00 97.7 61 20 126/67 95 Nasal Cannula 3.0 02/02/17 04:00 97.9 60 15 98/47 96 Nasal Cannula 02/01/17 23:39 97.9 63 14 85/46 97 Room Air Intake and Output 02/01/17 02/02/17 19:00 07:00 Intake Total 1095.0 ml 40 ml Output Total 800 ml 450 ml Balance 295.0 ml -410 ml Intake Oral 0 ml Free Water 150 ml IV Total 465.0 ml Tube Feeding 480 ml 40 ml Output Urine Total 800 ml 450 ml Laboratory Tests 02/02/17 04:50: White Blood Count 5.6, Red Blood Count 3.25L, Hemoglobin 9.9L, Hematocrit 31.3L , Mean Corpuscular Volume 96, Mean Corpuscular Hemoglobin 30.4, Mean Corpuscular Hemoglobin Concent 31.6L, Red Cell Distribution Width 14.3, Platelet Count 434, Mean Platelet Volume 5.3L, Neutrophils (%) (Auto) 71.9, Lymphocytes (%) (Auto) 19.8L, Monocytes (%) (Auto) 5.2, Eosinophils (%) (Auto) 2.0, Basophils (%) (Auto) 1.0, Sodium Level 138, Potassium Level 4.4, Chloride Level 100, Carbon Dioxide Level 25, Anion Gap 13, Blood Urea Nitrogen 24H, Creatinine 0.6L, Estimat Glomerular Filtration Rate > 60, Glucose Level 91, Calcium Level 8.3L Height (Feet): 5 Height (Inches): 9.00 Weight (Pounds): 120 General Appearance: WD/WN EENT: PERRL/EOMI Neck: non-tender Cardiovascular: normal peripheral pulses Respiratory/Chest: chest wall non-tender Abdomen: normal bowel sounds Extremities: normal range of motion Edema: no edema noted Leg (R), no edema noted Pedal (L), no edema noted Pedal ( R), no edema noted Generalized Skin: warm/dry William Bradley Feb 02, 2017 22:56
--- NOTE | 2017-02-02 23:04 | Infectious Diseases Prog Note ---
Assessment/Plan Problems: (1) Sepsis Assessment & Plan: Resolved. Due to HCAP and wound infection. (2) HCAP (healthcare-associated pneumonia) Assessment & Plan: SCx noted. Could be colonized. Now on INH colistin. CXR better already. Taper Zosyn. (3) Sacral pressure ulcer Assessment & Plan: Infected. Wound culture noted. Now on Zyvox. Taper Zosyn to ceftriaxone. (4) [place] disease Assessment & Plan: Complicated by severe chorea. (5) Multiple wounds Assessment & Plan: Some abrasions due to extremely repetitive, uncontrolled chorea. Some pressure ulcers. Some with secondary infections. Continue with wound care. Subjective Allergies: Coded Allergies: No Known Allergies (Unverified , 10/23/14) Objective Vital Signs Last 24 Hour Vital Signs Date Time Temp Pulse Resp B/P Pulse Ox O2 Delivery O2 Flow Rate FiO2 02/02/17 22:29 58 18 97 Nasal Cannula 3.0 32 02/02/17 22:19 67 20 96 Nasal Cannula 3.0 32 02/02/17 22:19 96 Nasal Cannula 3.0 32 02/02/17 22:19 Nasal Cannula 3.0 32 02/02/17 22:19 32 02/02/17 22:00 72 90/51 02/02/17 19:00 98.0 68 18 83/56 96 Nasal Cannula 2.0 02/02/17 16:00 97.7 63 20 121/58 97 Nasal Cannula 3.0 02/02/17 12:00 97.7 100 20 133/71 95 Nasal Cannula 3.0 02/02/17 08:59 65 18 96 Nasal Cannula 3.0 32 02/02/17 08:49 32 02/02/17 08:49 61 20 95 Nasal Cannula 3.0 32 02/02/17 08:48 95 Nasal Cannula 3.0 32 02/02/17 08:48 Nasal Cannula 3.0 32 02/02/17 08:00 97.7 61 20 126/67 95 Nasal Cannula 3.0 02/02/17 04:00 97.9 60 15 98/47 96 Nasal Cannula 02/01/17 23:39 97.9 63 14 85/46 97 Room Air Height (Feet): 5 Height (Inches): 9.00 Weight (Pounds): 120 Laboratory Tests Test 02/02/17 04:50 White Blood Count 5.6 K/UL (4.8-10.8) Red Blood Count 3.25 M/UL (4.70-6.10) L Hemoglobin 9.9 G/DL (14.2-18.0) L Hematocrit 31.3 % (42.0-52.0) L Mean Corpuscular Volume 96 FL (80-99) Mean Corpuscular Hemoglobin 30.4 PG (27.0-31.0) Mean Corpuscular Hemoglobin Concent 31.6 G/DL (32.0-36.0) L Red Cell Distribution Width 14.3 % (11.6-14.8) Platelet Count 434 K/UL (150-450) Mean Platelet Volume 5.3 FL (6.5-10.1) L Neutrophils (%) (Auto) 71.9 % (45.0-75.0) Lymphocytes (%) (Auto) 19.8 % (20.0-45.0) L Monocytes (%) (Auto) 5.2 % (1.0-10.0) Eosinophils (%) (Auto) 2.0 % (0.0-3.0) Basophils (%) (Auto) 1.0 % (0.0-2.0) Sodium Level 138 mEQ/L (135-145) Potassium Level 4.4 mEQ/L (3.4-4.9) Chloride Level 100 mEQ/L (98-107) Carbon Dioxide Level 25 mEQ/L (20-30) Anion Gap 13 (5-15) Blood Urea Nitrogen 24 mg/dL (7-23) H Creatinine 0.6 mg/dL (0.7-1.2) L Estimat Glomerular Filtration Rate > 60 mL/min (>60) Glucose Level 91 mg/dL (74-106) Calcium Level 8.3 mg/dL (8.6-10.2) L Current Medications Medications (Trade) Dose Ordered Sig/Poornima Route PRN Reason Start Time Stop Time Status Last Admin Dose Admin Aspirin (ASA) 81 mg DAILY GT 02/02/17 09:00 03/04/17 08:59 02/02/17 09:35 Colistimethate Sodium (Colistin *inhalation use only*) 150 mg Q12HRT INH 02/01/17 13:00 02/08/17 12:59 02/02/17 22:19 Heparin Sodium (Porcine) (Heparin 5000 units/ml) 5,000 units EVERY 8 HOURS SUBQ 02/01/17 14:00 03/03/17 13:59 02/02/17 22:04 Linezolid 300 ml @ 300 mls/hr Q12HR IVPB 02/01/17 21:00 02/08/17 20:59 02/02/17 20:44 Midodrine (Pro-Amatine) 5 mg THREE TIMES A DAY GT 02/01/17 13:00 03/03/17 12:59 02/02/17 18:08 Olanzapine (ZyPREXA) 2.5 mg Q4H PRN GT Agitation 02/01/17 12:15 03/03/17 12:14 Pantoprazole (Protonix) 40 mg DAILY GT 02/02/17 09:00 03/04/17 08:59 02/02/17 09:35 Piperacillin Sod/ Tazobactam Sod/ Sodium Chloride (Zosyn/Sodium Chloride) 110 ml @ 27.5 mls/hr Q8HR IVPB 02/01/17 14:00 02/08/17 13:59 02/02/17 21:57 Potassium Chloride (KCl 10% 20 mEq oral solution) 20 meq DAILY GT 02/02/17 09:00 03/04/17 08:59 02/02/17 09:35 TANNER SIMEON Feb 02, 2017 23:04
[2017-02-03] VITALS: BP 83/60
[2017-02-03 04:00] VITALS: BP 92/58
[2017-02-03] MEDS: Piperacillin/Tazobactam 3.375 GM in NS 110 ML IVPB SCH (05:51)
[2017-02-03] MEDS: Heparin 5000 units/ml inj SUBQ SCH ×3 (05:53→21:35)
[2017-02-03] MEDS: Colistin for inhalation INH SCH (07:25)
[2017-02-03 07:35] LABS: BASOPHILS % (AUTO) 1.4 % (0.0-2.0); EOSINOPHILS % (AUTO) 2.7 % (0.0-3.0); LYMPHOCYTES % (AUTO) 24.3 % (20.0-45.0); MEAN CORPUSCULAR HEMOGLOBIN 30.3 PG (27.0-31.0); MEAN CORPUSCULAR HGB CONC 31.8 G/DL (32.0-36.0); MEAN CORPUSCULAR VOLUME 95 FL (80-99); MEAN PLATELET VOLUME 5.7 FL (6.5-10.1); MONOCYTES % (AUTO) 4.3 % (1.0-10.0); NEUTROPHILS % (AUTO) 67.3 % (45.0-75.0); PLATELET COUNT 445 K/UL (150-450); RED BLOOD COUNT 3.12 M/UL (4.70-6.10); RED CELL DISTRIBUTION WIDTH 13.7 % (11.6-14.8); WHITE BLOOD COUNT 5.3 K/UL (4.8-10.8)
[2017-02-03 08:02] LABS: ANION GAP 13 (5-15); CALCIUM 8.3 mg/dL (8.6-10.2); CARBON DIOXIDE 25 mEQ/L (20-30); CHLORIDE 99 mEQ/L (98-107); CREATININE 0.5 mg/dL (0.7-1.2); GLOMERULAR FILTRATION RATE > 60 mL/min (>60); HEMOLYSIS 6; POTASSIUM 4.3 mEQ/L (3.4-4.9); SODIUM 137 mEQ/L (135-145)
[2017-02-03 08:07] VITALS: BP 91/61
[2017-02-03] MEDS ORDERED: NS 550ML IV ONE (08:49)
[2017-02-03] MEDS ORDERED: NS 275ml ONE (08:49)
[2017-02-03] MEDS ORDERED: Tubing IV Secondary IV ONE (08:49)
[2017-02-03] MEDS: Aspirin Baby 81mg GT SCH (09:17)
[2017-02-03] MEDS: Midodrine 10mg tab GT SCH ×3 (09:18→21:29)
[2017-02-03] MEDS: KCl 10% 20 mEq/15ml liquid GT SCH (09:19)
[2017-02-03] MEDS: OLANZapine 2.5mg tab GT PRN ×2 (09:37→17:55)
--- NOTE | 2017-02-03 09:43 | Infectious Diseases Prog Note ---
Assessment/Plan Problems: (1) Sepsis Assessment & Plan: Resolved. Due to HCAP and wound infection. (2) HCAP (healthcare-associated pneumonia) Assessment & Plan: SCx noted. Now on INH colistin. CXR better already. Status post Zosyn. (3) Sacral pressure ulcer Assessment & Plan: Stage IV. Infected. Wound culture noted. Now on Zyvox and ceftriaxone. Probably need a total of 6-week course till 03/07/2017. Continue with wound care. (4) [place] disease Assessment & Plan: Complicated by severe chorea. (5) Multiple wounds Assessment & Plan: Details documented in chart - reviewed. Some abrasions due to extremely repetitive, uncontrolled chorea. Some pressure ulcers (ear and sacrum). Sacral ulcer with secondary infections. Continue with wound care. Subjective Allergies: Coded Allergies: No Known Allergies (Unverified , 10/23/14) Objective Vital Signs Last 24 Hour Vital Signs Date Time Temp Pulse Resp B/P Pulse Ox O2 Delivery O2 Flow Rate FiO2 02/03/17 08:07 98.3 68 20 91/61 95 Nasal Cannula 2.0 02/03/17 07:46 75 22 99 Nasal Cannula 3.0 32 02/03/17 07:25 92 Nasal Cannula 3.0 32 02/03/17 07:25 32 02/03/17 07:25 Nasal Cannula 2.0 32 02/03/17 07:25 72 20 92 Nasal Cannula 3.0 32 02/03/17 04:00 98.1 69 18 92/58 98 Nasal Cannula 2.0 02/03/17 00:00 97.5 66 18 83/60 94 Nasal Cannula 2.0 02/02/17 22:29 58 18 97 Nasal Cannula 3.0 32 02/02/17 22:19 67 20 96 Nasal Cannula 3.0 32 02/02/17 22:19 96 Nasal Cannula 3.0 32 02/02/17 22:19 Nasal Cannula 3.0 32 02/02/17 22:19 32 02/02/17 22:00 72 90/51 02/02/17 19:00 98.0 68 18 83/56 96 Nasal Cannula 2.0 02/02/17 16:00 97.7 63 20 121/58 97 Nasal Cannula 3.0 02/02/17 12:00 97.7 100 20 133/71 95 Nasal Cannula 3.0 Height (Feet): 5 Height (Inches): 9.00 Weight (Pounds): 120 Laboratory Tests Test 02/03/17 06:11 White Blood Count 5.3 K/UL (4.8-10.8) Red Blood Count 3.12 M/UL (4.70-6.10) L Hemoglobin 9.4 G/DL (14.2-18.0) L Hematocrit 29.7 % (42.0-52.0) L Mean Corpuscular Volume 95 FL (80-99) Mean Corpuscular Hemoglobin 30.3 PG (27.0-31.0) Mean Corpuscular Hemoglobin Concent 31.8 G/DL (32.0-36.0) L Red Cell Distribution Width 13.7 % (11.6-14.8) Platelet Count 445 K/UL (150-450) Mean Platelet Volume 5.7 FL (6.5-10.1) L Neutrophils (%) (Auto) 67.3 % (45.0-75.0) Lymphocytes (%) (Auto) 24.3 % (20.0-45.0) Monocytes (%) (Auto) 4.3 % (1.0-10.0) Eosinophils (%) (Auto) 2.7 % (0.0-3.0) Basophils (%) (Auto) 1.4 % (0.0-2.0) Sodium Level 137 mEQ/L (135-145) Potassium Level 4.3 mEQ/L (3.4-4.9) Chloride Level 99 mEQ/L (98-107) Carbon Dioxide Level 25 mEQ/L (20-30) Anion Gap 13 (5-15) Blood Urea Nitrogen 24 mg/dL (7-23) H Creatinine 0.5 mg/dL (0.7-1.2) L Estimat Glomerular Filtration Rate > 60 mL/min (>60) Glucose Level 90 mg/dL (74-106) Calcium Level 8.3 mg/dL (8.6-10.2) L Current Medications Medications (Trade) Dose Ordered Sig/Poornima Route PRN Reason Start Time Stop Time Status Last Admin Dose Admin Aspirin (ASA) 81 mg DAILY GT 02/02/17 09:00 03/04/17 08:59 02/03/17 09:17 Ceftriaxone Sodium/Dextrose (Rocephin/D5W) 110 ml @ 220 mls/hr Q24H IVPB 02/03/17 14:00 02/10/17 13:59 Colistimethate Sodium 150 mg 150 mg Q12HRT INH 02/01/17 13:00 02/08/17 12:59 02/03/17 07:25 Heparin Sodium (Porcine) (Heparin 5000 units/ml) 5,000 units EVERY 8 HOURS SUBQ 02/01/17 14:00 03/03/17 13:59 02/03/17 05:53 Lansoprazole (Prevacid) 30 mg DAILY GT 02/03/17 10:00 03/05/17 09:59 Linezolid (Zyvox) 300 ml @ 300 mls/hr Q12HR IVPB 02/01/17 21:00 02/08/17 20:59 02/03/17 09:19 Midodrine (Pro-Amatine) 5 mg THREE TIMES A DAY GT 02/01/17 13:00 03/03/17 12:59 02/03/17 09:18 Olanzapine (ZyPREXA) 2.5 mg Q4H PRN GT Agitation 02/01/17 12:15 03/03/17 12:14 Potassium Chloride (KCl 10% 20 mEq oral solution) 20 meq DAILY GT 02/02/17 09:00 03/04/17 08:59 02/03/17 09:19 TANNER SIMEON Feb 03, 2017 09:43
--- NOTE | 2017-02-03 11:26 | Neurology Progress Note ---
Interim History Interim History Interim History Mr. Murray is non verbal. He continues to be subdued. His choreoathetotic movements are about the same. He continues to be cognitively impoverished and generally weak. There has been no significant change in his condition. Review of Systems Neuro Review of Systems Unable to obtain. Objective Physical Exam Last Vital Signs Date Time Temp Pulse Resp B/P Pulse Ox O2 Delivery O2 Flow Rate FiO2 02/03/17 08:07 98.3 68 20 91/61 95 Nasal Cannula 2.0 02/03/17 07:46 32 Laboratory Tests Test 02/03/17 06:11 White Blood Count 5.3 K/UL (4.8-10.8) Red Blood Count 3.12 M/UL (4.70-6.10) L Hemoglobin 9.4 G/DL (14.2-18.0) L Hematocrit 29.7 % (42.0-52.0) L Mean Corpuscular Volume 95 FL (80-99) Mean Corpuscular Hemoglobin 30.3 PG (27.0-31.0) Mean Corpuscular Hemoglobin Concent 31.8 G/DL (32.0-36.0) L Red Cell Distribution Width 13.7 % (11.6-14.8) Platelet Count 445 K/UL (150-450) Mean Platelet Volume 5.7 FL (6.5-10.1) L Neutrophils (%) (Auto) 67.3 % (45.0-75.0) Lymphocytes (%) (Auto) 24.3 % (20.0-45.0) Monocytes (%) (Auto) 4.3 % (1.0-10.0) Eosinophils (%) (Auto) 2.7 % (0.0-3.0) Basophils (%) (Auto) 1.4 % (0.0-2.0) Sodium Level 137 mEQ/L (135-145) Potassium Level 4.3 mEQ/L (3.4-4.9) Chloride Level 99 mEQ/L (98-107) Carbon Dioxide Level 25 mEQ/L (20-30) Anion Gap 13 (5-15) Blood Urea Nitrogen 24 mg/dL (7-23) H Creatinine 0.5 mg/dL (0.7-1.2) L Estimat Glomerular Filtration Rate > 60 mL/min (>60) Glucose Level 90 mg/dL (74-106) Calcium Level 8.3 mg/dL (8.6-10.2) L Neurologic Exam Objective PHYSICAL EXAMINATION: GENERAL: He is a well-developed, but lean and cachectic-looking gentleman, lying in bed, in a position. HEAD: Normocephalic and atraumatic. EENT: Examination benign. NECK: No neck rigidity was observed. NEUROLOGICAL EXAMINATION: MENTAL STATUS EXAMINATION: He was awake and alert. He was not communicative. He was unable to cooperate for further mental status testing. SPEECH: He was mute. LANGUAGE: Could not be tested. CRANIAL NERVE EXAMINATION: II: He did blink to threat in all dimas. He, however, was unable to cooperate for confrontation testing and in addition was also unable to count fingers. III, IV & : The external ocular movements were full and the pupils 3 mm in diameter, equal, round, regular, and reactive to light. V: He had normal facial sensations and the temporales, masseters, and pterygoids functioned normally. VII: He had normal facial expressions and no facial asymmetry. VIII: He was able to hear and had no nystagmus. IX: The palate moved symmetrically on phonation. X: He had no hoarseness of voice. XI: The sternocleidomastoids and trapezii functioned normally. XII: The tongue was in the midline without any fasciculations or atrophy. MOTOR SYSTEM: The tone was increased in all four extremities with spasticity. Examination of muscle mass revealed severe generalized muscle wasting involving the lower extremities more than the upper extremities. Examination of power was impossible to perform on individual muscle groups. He had a significant quadriparesis involving the lower extremities more than the upper extremities. SENSORY EXAMINATION: He responded appropriately to deep pain. He was unable to cooperate for other sensory modalities. REFLEXES: 2++ and bilaterally symmetrical at the biceps, triceps, and brachioradialis. 2+ at both knees. 0 at both ankles. The plantar responses were flexor bilaterally. COORDINATION, STANCE & GAIT: Could not be tested. ABNORMAL MOVEMENTS: He exhibited choreoathetotic movements involving all his extremities and the facial muscles. In addition, he also exhibited bruxism. Impression/Recommendations Diagnostic Impression 1. Mr. Reece Murray is a 61-year-old, gentleman, of unknown handedness, who has a long history of Khalida's disease, who was hospitalized for "a change in mental state and generalized weakness." 2. He continues to be non verbal and subdued. He continues to exhibit choreoathetotic movements. He continues to be cognitively impoverished and weak. 3. On neurological examination, at this time, he does demonstrate global cerebral dysfunction. He is mute and is unable to cooperate for further mental status testing. He also demonstrates generalized weakness and generalized wasting of the muscles. His deep tendon reflexes are globally diminished. He , in addition, exhibits choreoathetotic movements of all his extremities and facial muscles. 4. Laboratory data on initial evaluation revealed that he was significantly hyponatremic with a sodium of 127. His CK was elevated to 226. He was significantly hypoalbuminemic with an albumin of 2.6. His CBC revealed that he is anemic with a hemoglobin of 10.4 and his urinalysis revealed 1+ leukocyte esterase, 0 to 2 red blood cells per high-power field, 2 to 4 white blood cells per high-power field, and a few urinary bacteria. 5. His B12 and TSH are normal. 6. The patient's history and neurological examination are most compatible with underlying advanced La[place]'s disease with a superadded encephalopathy most probably related to the hyponatremia and urinary tract infection. 7. His encephalopathy is stable. Recommendations 1. Continue present management. 2. Aggressive treatment of the patient's infectious process. 3. Correction of the patient's metabolic dysfunction. 4. Observe closely. Fantasma Reid M.D., M.S.P.[facility]. FANTASMA REID Feb 03, 2017 11:26
--- NOTE | 2017-02-03 11:49 | General Progress Note ---
Assessment/Plan Problem List: (1) Laceration ICD Codes: T14.8 - Other injury of unspecified body region SNOMED: 504671219 (2) Closed head injury ICD Codes: S09.90XA - Unspecified injury of head, initial encounter SNOMED: 190867257797 (3) Fall ICD Codes: W19.XXXA - Unspecified fall, initial encounter SNOMED: 9226654 (4) Closed head injury ICD Codes: S09.90XA - Unspecified injury of head, initial encounter SNOMED: 758754148542 (5) Rash and other nonspecific skin eruption ICD Codes: R21 - Rash and other nonspecific skin eruption SNOMED: 156198363 (6) Abscess ICD Codes: L02.91 - Cutaneous abscess, unspecified SNOMED: 389179474 (7) Sepsis ICD Codes: A41.9 - Sepsis, unspecified organism SNOMED: 50300996 (8) Sacral pressure ulcer ICD Codes: L89.159 - Pressure ulcer of sacral region, unspecified stage SNOMED: 052953763 (9) HCAP (healthcare-associated pneumonia) ICD Codes: J18.9 - Pneumonia, unspecified organism SNOMED: 962332909 (10) [place] 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 SNOMED: 50686391 (11) Hyponatremia ICD Codes: E87.1 - Hypo-osmolality and hyponatremia SNOMED: 59164312 (12) Pneumonia ICD Codes: J18.9 - Pneumonia, unspecified organism SNOMED: 046302020 (13) Weakness generalized ICD Codes: R53.1 - Weakness SNOMED: 76679161 (14) Ear abrasion ICD Codes: S00.419A - Abrasion of unspecified ear, initial encounter SNOMED: 102049187 Status: stable, progressing, tolerating diet Assessment/Plan ot pt diet abx wound care cbc bmp am dc plan Subjective Constitutional: Reports: weakness Allergies: Coded Allergies: No Known Allergies (Unverified , 10/23/14) All Systems: reviewed and negative except above Subjective o2nc calm in bed Objective Last 24 Hour Vital Signs Date Time Temp Pulse Resp B/P Pulse Ox O2 Delivery O2 Flow Rate FiO2 02/03/17 08:07 98.3 68 20 91/61 95 Nasal Cannula 2.0 02/03/17 07:46 75 22 99 Nasal Cannula 3.0 32 02/03/17 07:25 92 Nasal Cannula 3.0 32 02/03/17 07:25 32 02/03/17 07:25 Nasal Cannula 2.0 32 02/03/17 07:25 72 20 92 Nasal Cannula 3.0 32 02/03/17 04:00 98.1 69 18 92/58 98 Nasal Cannula 2.0 02/03/17 00:00 97.5 66 18 83/60 94 Nasal Cannula 2.0 02/02/17 22:29 58 18 97 Nasal Cannula 3.0 32 02/02/17 22:19 67 20 96 Nasal Cannula 3.0 32 02/02/17 22:19 96 Nasal Cannula 3.0 32 02/02/17 22:19 Nasal Cannula 3.0 32 02/02/17 22:19 32 02/02/17 22:00 72 90/51 02/02/17 19:00 98.0 68 18 83/56 96 Nasal Cannula 2.0 02/02/17 16:00 97.7 63 20 121/58 97 Nasal Cannula 3.0 02/02/17 12:00 97.7 100 20 133/71 95 Nasal Cannula 3.0 Intake and Output 02/02/17 02/03/17 19:00 07:00 Intake Total 620 ml 927.5 ml Output Total 900 ml 600 ml Balance -280 ml 327.5 ml Free Water 140 ml 50 ml IV Total 437.5 ml Tube Feeding 480 ml 440 ml Output Urine Total 900 ml 600 ml # Bowel Movements 1 1 Laboratory Tests 02/03/17 06:11: White Blood Count 5.3, Red Blood Count 3.12L, Hemoglobin 9.4L, Hematocrit 29.7L , Mean Corpuscular Volume 95, Mean Corpuscular Hemoglobin 30.3, Mean Corpuscular Hemoglobin Concent 31.8L, Red Cell Distribution Width 13.7, Platelet Count 445, Mean Platelet Volume 5.7L, Neutrophils (%) (Auto) 67.3, Lymphocytes (%) (Auto) 24.3, Monocytes (%) (Auto) 4.3, Eosinophils (%) (Auto) 2.7, Basophils (%) (Auto) 1.4, Sodium Level 137, Potassium Level 4.3, Chloride Level 99, Carbon Dioxide Level 25, Anion Gap 13, Blood Urea Nitrogen 24H, Creatinine 0.5L, Estimat Glomerular Filtration Rate > 60, Glucose Level 90, Calcium Level 8.3L Height (Feet): 5 Height (Inches): 9.00 Weight (Pounds): 120 General Appearance: lethargic EENT: normal ENT inspection Neck: normal alignment Cardiovascular: normal peripheral pulses, normal rate, regular rhythm Respiratory/Chest: chest wall non-tender, lungs clear, normal breath sounds Abdomen: normal bowel sounds, non tender, soft Extremities: normal inspection Edema: no edema noted Arm (L), no edema noted Arm (R), no edema noted Leg (L), no edema noted Leg (R), no edema noted Pedal (L), no edema noted Pedal (R), no edema noted Generalized Neurologic: motor weakness Skin: normal pigmentation, warm/dry CANDELARIO BORREGO Feb 03, 2017 11:49
[2017-02-03 11:51] VITALS: BP 95/63
--- NOTE | 2017-02-03 13:01 | General Progress Note ---
Assessment/Plan Status: stable Status Narrative BP running low Assessment/Plan HypoNatremia- depletional vs SIADH-Resolved DM, Proteinuria Pneumonia- Hypotension PH: 1. History of hypertension. 2. Merced's disease. 3. Psychosis. 4. Hyperlipidemia. 5. Diabetes. 6. Mood disorder. 7. Benign prostatic hypertrophy. Plan: On feeding Restart Midodrin 3% saline- prn gastric support- Monitor Lytes- Keep BP and BS in check Per ID Subjective ROS Limited/Unobtainable: No Constitutional: Reports: malaise Allergies: Coded Allergies: No Known Allergies (Unverified , 10/23/14) Objective Last 24 Hour Vital Signs Date Time Temp Pulse Resp B/P Pulse Ox O2 Delivery O2 Flow Rate FiO2 02/03/17 11:51 98.2 71 20 95/63 99 Nasal Cannula 02/03/17 08:07 98.3 68 20 91/61 95 Nasal Cannula 2.0 02/03/17 07:46 75 22 99 Nasal Cannula 3.0 32 02/03/17 07:25 92 Nasal Cannula 3.0 32 02/03/17 07:25 32 02/03/17 07:25 Nasal Cannula 2.0 32 02/03/17 07:25 72 20 92 Nasal Cannula 3.0 32 02/03/17 04:00 98.1 69 18 92/58 98 Nasal Cannula 2.0 02/03/17 00:00 97.5 66 18 83/60 94 Nasal Cannula 2.0 02/02/17 22:29 58 18 97 Nasal Cannula 3.0 32 02/02/17 22:19 67 20 96 Nasal Cannula 3.0 32 02/02/17 22:19 96 Nasal Cannula 3.0 32 02/02/17 22:19 Nasal Cannula 3.0 32 02/02/17 22:19 32 02/02/17 22:00 72 90/51 02/02/17 19:00 98.0 68 18 83/56 96 Nasal Cannula 2.0 02/02/17 16:00 97.7 63 20 121/58 97 Nasal Cannula 3.0 Intake and Output 02/02/17 02/03/17 19:00 07:00 Intake Total 620 ml 927.5 ml Output Total 900 ml 600 ml Balance -280 ml 327.5 ml Free Water 140 ml 50 ml IV Total 437.5 ml Tube Feeding 480 ml 440 ml Output Urine Total 900 ml 600 ml # Bowel Movements 1 1 Laboratory Tests 02/03/17 06:11: White Blood Count 5.3, Red Blood Count 3.12L, Hemoglobin 9.4L, Hematocrit 29.7L , Mean Corpuscular Volume 95, Mean Corpuscular Hemoglobin 30.3, Mean Corpuscular Hemoglobin Concent 31.8L, Red Cell Distribution Width 13.7, Platelet Count 445, Mean Platelet Volume 5.7L, Neutrophils (%) (Auto) 67.3, Lymphocytes (%) (Auto) 24.3, Monocytes (%) (Auto) 4.3, Eosinophils (%) (Auto) 2.7, Basophils (%) (Auto) 1.4, Sodium Level 137, Potassium Level 4.3, Chloride Level 99, Carbon Dioxide Level 25, Anion Gap 13, Blood Urea Nitrogen 24H, Creatinine 0.5L, Estimat Glomerular Filtration Rate > 60, Glucose Level 90, Calcium Level 8.3L Height (Feet): 5 Height (Inches): 9.00 Weight (Pounds): 120 General Appearance: no apparent distress Objective no change in PE SHILOH HUTSON Feb 03, 2017 13:01
[2017-02-03] MEDS: cefTRIAXone 2 GM in D5W 110 ML IVPB SCH (15:33)
[2017-02-03 15:58] VITALS: BP 110/66
[2017-02-03 20:00] VITALS: BP 106/70
--- NOTE | 2017-02-03 23:54 | Cardiology Progress Note ---
Assessment/Plan Assessment/Plan 1. Dyspnea likely due to bilateral pneumonia, pulmonary toilet, IV ABx, hydration and O2 therapy. 2. Hypotension, on midodrine 3. Hx of CAD, ? details, stable with no ECG ischemic features 4. Hx of HTN 5. Hx of DM 6. Khalida disease Subjective Subjective Transferred to med-surg unit. Denies chest pain or SOB. Objective Last 24 Hour Vital Signs Date Time Temp Pulse Resp B/P Pulse Ox O2 Delivery O2 Flow Rate FiO2 02/03/17 20:00 97.9 74 15 106/70 98 Nasal Cannula 02/03/17 15:58 98.2 77 18 110/66 99 Nasal Cannula 2.0 02/03/17 11:51 98.2 71 20 95/63 99 Nasal Cannula 02/03/17 08:07 98.3 68 20 91/61 95 Nasal Cannula 2.0 02/03/17 07:46 75 22 99 Nasal Cannula 3.0 32 02/03/17 07:25 92 Nasal Cannula 3.0 32 02/03/17 07:25 32 02/03/17 07:25 Nasal Cannula 2.0 32 02/03/17 07:25 72 20 92 Nasal Cannula 3.0 32 02/03/17 04:00 98.1 69 18 92/58 98 Nasal Cannula 2.0 02/03/17 00:00 97.5 66 18 83/60 94 Nasal Cannula 2.0 Intake and Output 02/02/17 02/03/17 19:00 07:00 Intake Total 620 ml 967.5 ml Output Total 900 ml 600 ml Balance -280 ml 367.5 ml Free Water 140 ml 50 ml IV Total 437.5 ml Tube Feeding 480 ml 480 ml Output Urine Total 900 ml 600 ml # Bowel Movements 1 1 2D Echo: Normal LVEF, RVSP 28 mmHg Laboratory Tests Test 02/03/17 06:11 White Blood Count 5.3 K/UL (4.8-10.8) Red Blood Count 3.12 M/UL (4.70-6.10) L Hemoglobin 9.4 G/DL (14.2-18.0) L Hematocrit 29.7 % (42.0-52.0) L Mean Corpuscular Volume 95 FL (80-99) Mean Corpuscular Hemoglobin 30.3 PG (27.0-31.0) Mean Corpuscular Hemoglobin Concent 31.8 G/DL (32.0-36.0) L Red Cell Distribution Width 13.7 % (11.6-14.8) Platelet Count 445 K/UL (150-450) Mean Platelet Volume 5.7 FL (6.5-10.1) L Neutrophils (%) (Auto) 67.3 % (45.0-75.0) Lymphocytes (%) (Auto) 24.3 % (20.0-45.0) Monocytes (%) (Auto) 4.3 % (1.0-10.0) Eosinophils (%) (Auto) 2.7 % (0.0-3.0) Basophils (%) (Auto) 1.4 % (0.0-2.0) Sodium Level 137 mEQ/L (135-145) Potassium Level 4.3 mEQ/L (3.4-4.9) Chloride Level 99 mEQ/L (98-107) Carbon Dioxide Level 25 mEQ/L (20-30) Anion Gap 13 (5-15) Blood Urea Nitrogen 24 mg/dL (7-23) H Creatinine 0.5 mg/dL (0.7-1.2) L Estimat Glomerular Filtration Rate > 60 mL/min (>60) Glucose Level 90 mg/dL (74-106) Calcium Level 8.3 mg/dL (8.6-10.2) L Objective HEENT: Normocephalic and atraumatic. Pupils reactive to light. Dry oral mucosa. No ulceration or exudate. NECK: No JVD, no carotid bruit, carotid upstroke 2+ B/L CARDIOVASCULAR: Normal S1S2, Regular, rate and rhythm. No murmurs, gallops or rubs. LUNGS: Diminished BS both lungs, crackles on the right base ABDOMEN: Soft, nontender, and nondistended. G-tube site looks intact. EXTREMITIES: No edema clubbing or cyanosis. BEAU JC Feb 03, 2017 23:54
[2017-02-04] VITALS (7 sets, daily range): BP systolic 93–139; BP diastolic 55–63
--- NOTE | 2017-02-04 00:11 | General Progress Note ---
Assessment/Plan Assessment/Plan Hematology Progress Note ASSESSMENT: 1. Anemia 2/2 chronic disease. 2. Decreased Hgb and hematocrit-occult pending 3. Hyponatremia- now improved. 4. Hypertension. 5. Acute exacerbation of chronic encephalopathy. 6. Sepsis with sacral decubitis ulcerations- on abx 7. Psychiatric history. RECS: 1. Monitor counts. 2. Anemia workup has been ordered- pt has anemia 2/2 chronic disease. 3. Hb goals above 7. 4. Peripheral smear reviewed- wnl. 5. Medications reviewed. 6. Abx per ID service. 7. Appreciate neurology as well as ID recommendations. 8. Discussed with staff. Subjective ROS Limited/Unobtainable: Yes Constitutional: Reports: no symptoms HEENT: Reports: no symptoms Cardiovascular: Reports: no symptoms Respiratory: Reports: no symptoms Gastrointestinal/Abdominal: Reports: no symptoms Genitourinary: Reports: no symptoms Neurologic/Psychiatric: Reports: no symptoms Endocrine: Reports: no symptoms Hematologic/Lymphatic: Reports: anemia Allergies: Coded Allergies: No Known Allergies (Unverified , 10/23/14) Subjective nonverbal, minimally interactive, contracted Objective Last 24 Hour Vital Signs Date Time Temp Pulse Resp B/P Pulse Ox O2 Delivery O2 Flow Rate FiO2 02/04/17 00:00 97.5 60 15 93/63 98 Nasal Cannula 02/03/17 20:00 97.9 74 15 106/70 98 Nasal Cannula 02/03/17 15:58 98.2 77 18 110/66 99 Nasal Cannula 2.0 02/03/17 11:51 98.2 71 20 95/63 99 Nasal Cannula 02/03/17 08:07 98.3 68 20 91/61 95 Nasal Cannula 2.0 02/03/17 07:46 75 22 99 Nasal Cannula 3.0 32 02/03/17 07:25 92 Nasal Cannula 3.0 32 02/03/17 07:25 32 02/03/17 07:25 Nasal Cannula 2.0 32 02/03/17 07:25 72 20 92 Nasal Cannula 3.0 32 02/03/17 04:00 98.1 69 18 92/58 98 Nasal Cannula 2.0 Intake and Output 02/03/17 02/04/17 19:00 07:00 Intake Total 550 ml 300 ml Output Total 800 ml Balance -250 ml 300 ml Free Water 150 ml IV Total 300 ml Tube Feeding 400 ml Output Urine Total 800 ml # Bowel Movements 3 Laboratory Tests 02/03/17 06:11: White Blood Count 5.3, Red Blood Count 3.12L, Hemoglobin 9.4L, Hematocrit 29.7L , Mean Corpuscular Volume 95, Mean Corpuscular Hemoglobin 30.3, Mean Corpuscular Hemoglobin Concent 31.8L, Red Cell Distribution Width 13.7, Platelet Count 445, Mean Platelet Volume 5.7L, Neutrophils (%) (Auto) 67.3, Lymphocytes (%) (Auto) 24.3, Monocytes (%) (Auto) 4.3, Eosinophils (%) (Auto) 2.7, Basophils (%) (Auto) 1.4, Sodium Level 137, Potassium Level 4.3, Chloride Level 99, Carbon Dioxide Level 25, Anion Gap 13, Blood Urea Nitrogen 24H, Creatinine 0.5L, Estimat Glomerular Filtration Rate > 60, Glucose Level 90, Calcium Level 8.3L Height (Feet): 5 Height (Inches): 9.00 Weight (Pounds): 120 General Appearance: WD/WN EENT: PERRL/EOMI Neck: non-tender Cardiovascular: normal peripheral pulses Respiratory/Chest: chest wall non-tender Abdomen: normal bowel sounds Edema: no edema noted Leg (L), no edema noted Leg (R), no edema noted Pedal (L) , no edema noted Pedal (R), no edema noted Generalized Neurologic: disoriented Skin: warm/dry William Bradley Feb 04, 2017 00:11
[2017-02-04] MEDS: Colistin for inhalation INH SCH ×3 (00:12→20:57)
[2017-02-04] MEDS: OLANZapine 2.5mg tab GT PRN ×3 (02:53→18:15)
[2017-02-04] MEDS: Midodrine 10mg tab GT SCH ×3 (05:02→22:05)
[2017-02-04] MEDS: Heparin 5000 units/ml inj SUBQ SCH ×3 (05:04→22:05)
--- NOTE | 2017-02-04 06:40 | General Progress Note ---
Assessment/Plan Problem List: (1) Sepsis ICD Codes: A41.9 - Sepsis, unspecified organism SNOMED: 10009235 (2) Sacral pressure ulcer ICD Codes: L89.159 - Pressure ulcer of sacral region, unspecified stage SNOMED: 071681672 (3) Khalida disease ICD Codes: G10 - [place]'s disease SNOMED: 63190778 (4) Hyponatremia ICD Codes: E87.1 - Hypo-osmolality and hyponatremia SNOMED: 90936001 (5) Pneumonia ICD Codes: J18.9 - Pneumonia, unspecified organism SNOMED: 826927525 (6) Weakness generalized ICD Codes: R53.1 - Weakness SNOMED: 09051849 Status: progressing Assessment/Plan afebrile vitals stable sepsis and sacral decub i&d growing multiple organisms will discuss w id Subjective ROS Limited/Unobtainable: Yes Constitutional: Reports: no symptoms Allergies: Coded Allergies: No Known Allergies (Unverified , 10/23/14) Objective Last 24 Hour Vital Signs Date Time Temp Pulse Resp B/P Pulse Ox O2 Delivery O2 Flow Rate FiO2 02/04/17 04:00 97.9 75 15 98/58 94 Nasal Cannula 02/04/17 00:00 97.5 60 15 93/63 98 Nasal Cannula 02/03/17 23:45 80 20 96 Nasal Cannula 3.0 32 02/03/17 23:30 64 20 92 Nasal Cannula 3.0 32 02/03/17 20:00 97.9 74 15 106/70 98 Nasal Cannula 02/03/17 19:30 92 Nasal Cannula 3.0 32 02/03/17 19:30 Nasal Cannula 3.0 32 02/03/17 15:58 98.2 77 18 110/66 99 Nasal Cannula 2.0 02/03/17 11:51 98.2 71 20 95/63 99 Nasal Cannula 02/03/17 08:07 98.3 68 20 91/61 95 Nasal Cannula 2.0 02/03/17 07:46 75 22 99 Nasal Cannula 3.0 32 02/03/17 07:25 92 Nasal Cannula 3.0 32 02/03/17 07:25 32 02/03/17 07:25 Nasal Cannula 2.0 32 02/03/17 07:25 72 20 92 Nasal Cannula 3.0 32 Intake and Output 02/03/17 02/04/17 19:00 07:00 Intake Total 590 ml 840 ml Output Total 800 ml 350 ml Balance -210 ml 490 ml Free Water 150 ml 100 ml IV Total 300 ml Tube Feeding 440 ml 440 ml Output Urine Total 800 ml 350 ml # Bowel Movements 3 Laboratory Tests 02/04/17 05:00: Stool Occult Blood [Pending] Height (Feet): 5 Height (Inches): 9.00 Weight (Pounds): 120 General Appearance: confused EENT: PERRL/EOMI Neck: supple Cardiovascular: normal rate Respiratory/Chest: lungs clear Abdomen: soft Kyle Nieves MD Feb 04, 2017 06:40
[2017-02-04 07:11] LABS: ANION GAP 10 (5-15); CALCIUM 8.7 mg/dL (8.6-10.2); CARBON DIOXIDE 28 mEQ/L (20-30); CHLORIDE 99 mEQ/L (98-107); CREATININE 0.5 mg/dL (0.7-1.2); GLOMERULAR FILTRATION RATE > 60 mL/min (>60); HEMOLYSIS 3; POTASSIUM 4.7 mEQ/L (3.4-4.9); SODIUM 137 mEQ/L (135-145)
[2017-02-04 07:27] LABS: BASOPHILS % (AUTO) 1.1 % (0.0-2.0); EOSINOPHILS % (AUTO) 2.8 % (0.0-3.0); LYMPHOCYTES % (AUTO) 20.6 % (20.0-45.0); MEAN CORPUSCULAR HEMOGLOBIN 30.9 PG (27.0-31.0); MEAN CORPUSCULAR HGB CONC 32.8 G/DL (32.0-36.0); MEAN CORPUSCULAR VOLUME 94 FL (80-99); MEAN PLATELET VOLUME 5.1 FL (6.5-10.1); NEUTROPHILS % (AUTO) 69.5 % (45.0-75.0); PLATELET COUNT 493 K/UL (150-450); RED BLOOD COUNT 3.36 M/UL (4.70-6.10); RED CELL DISTRIBUTION WIDTH 13.4 % (11.6-14.8)
[2017-02-04] MEDS: Aspirin Baby 81mg GT SCH (08:33)
--- NOTE | 2017-02-04 11:32 | General Progress Note ---
Assessment/Plan Status: stable Assessment/Plan HypoNatremia- depletional vs SIADH-Resolved DM, Proteinuria Pneumonia- Hypotension PH: 1. History of hypertension. 2. Ingham's disease. 3. Psychosis. 4. Hyperlipidemia. 5. Diabetes. 6. Mood disorder. 7. Benign prostatic hypertrophy. Plan: On feeding Restart Midodrin 3% saline- prn gastric support- Monitor Lytes- Keep BP and BS in check Per ID Subjective ROS Limited/Unobtainable: No Constitutional: Reports: malaise, weakness Allergies: Coded Allergies: No Known Allergies (Unverified , 10/23/14) Objective Last 24 Hour Vital Signs Date Time Temp Pulse Resp B/P Pulse Ox O2 Delivery O2 Flow Rate FiO2 02/04/17 10:02 78 20 98 Nasal Cannula 3.0 32 02/04/17 09:45 75 20 95 Nasal Cannula 3.0 32 02/04/17 07:56 Nasal Cannula 3.0 32 02/04/17 07:55 95 Nasal Cannula 3.0 32 02/04/17 07:52 97.3 72 21 139/61 95 Nasal Cannula 2.0 02/04/17 04:00 97.9 75 15 98/58 94 Nasal Cannula 02/04/17 00:00 97.5 60 15 93/63 98 Nasal Cannula 02/03/17 23:45 80 20 96 Nasal Cannula 3.0 32 02/03/17 23:30 64 20 92 Nasal Cannula 3.0 32 02/03/17 20:00 97.9 74 15 106/70 98 Nasal Cannula 02/03/17 19:30 92 Nasal Cannula 3.0 32 02/03/17 19:30 Nasal Cannula 3.0 32 02/03/17 15:58 98.2 77 18 110/66 99 Nasal Cannula 2.0 02/03/17 11:51 98.2 71 20 95/63 99 Nasal Cannula Intake and Output 02/03/17 02/04/17 19:00 07:00 Intake Total 590 ml 880 ml Output Total 800 ml 350 ml Balance -210 ml 530 ml Free Water 150 ml 100 ml IV Total 300 ml Tube Feeding 440 ml 480 ml Output Urine Total 800 ml 350 ml # Bowel Movements 3 Laboratory Tests 02/04/17 05:00: Stool Occult Blood [Pending] 02/04/17 05:55: White Blood Count 7.0, Red Blood Count 3.36L, Hemoglobin 10.4L, Hematocrit 31.7L , Mean Corpuscular Volume 94, Mean Corpuscular Hemoglobin 30.9, Mean Corpuscular Hemoglobin Concent 32.8, Red Cell Distribution Width 13.4, Platelet Count 493H, Mean Platelet Volume 5.1L, Neutrophils (%) (Auto) 69.5, Lymphocytes (%) (Auto) 20.6, Monocytes (%) (Auto) 6.0, Eosinophils (%) (Auto) 2.8, Basophils (%) (Auto) 1.1, Sodium Level 137, Potassium Level 4.7, Chloride Level 99, Carbon Dioxide Level 28, Anion Gap 10, Blood Urea Nitrogen 25H, Creatinine 0.5L, Estimat Glomerular Filtration Rate > 60, Glucose Level 96, Calcium Level 8.7 Height (Feet): 5 Height (Inches): 9.00 Weight (Pounds): 120 General Appearance: no apparent distress Objective no change in PE SHILOH HUTSON Feb 04, 2017 11:32
[2017-02-04] MEDS: LORazepam 1mg tab GT PRN (15:05)
[2017-02-04] MEDS: cefTRIAXone 2 GM in D5W 110 ML IVPB SCH (15:05)
--- NOTE | 2017-02-04 17:28 | Neurology Progress Note ---
Interim History Interim History Interim History Mr. Murray is brighter today. He is able to give some yes/no answers. His choreoathetotic movements are more robust.. He continues to be cognitively impoverished and generally weak. There has been no significant change in his condition. Review of Systems Neuro Review of Systems Unable to obtain. Objective Physical Exam Last Vital Signs Date Time Temp Pulse Resp B/P Pulse Ox O2 Delivery O2 Flow Rate FiO2 02/04/17 16:17 97.8 66 21 108/63 96 Nasal Cannula 2.0 02/04/17 10:02 32 Laboratory Tests Test 02/04/17 05:00 02/04/17 05:55 Stool Occult Blood Positive (NEGATIVE) White Blood Count 7.0 K/UL (4.8-10.8) Red Blood Count 3.36 M/UL (4.70-6.10) L Hemoglobin 10.4 G/DL (14.2-18.0) L Hematocrit 31.7 % (42.0-52.0) L Mean Corpuscular Volume 94 FL (80-99) Mean Corpuscular Hemoglobin 30.9 PG (27.0-31.0) Mean Corpuscular Hemoglobin Concent 32.8 G/DL (32.0-36.0) Red Cell Distribution Width 13.4 % (11.6-14.8) Platelet Count 493 K/UL (150-450) H Mean Platelet Volume 5.1 FL (6.5-10.1) L Neutrophils (%) (Auto) 69.5 % (45.0-75.0) Lymphocytes (%) (Auto) 20.6 % (20.0-45.0) Monocytes (%) (Auto) 6.0 % (1.0-10.0) Eosinophils (%) (Auto) 2.8 % (0.0-3.0) Basophils (%) (Auto) 1.1 % (0.0-2.0) Sodium Level 137 mEQ/L (135-145) Potassium Level 4.7 mEQ/L (3.4-4.9) Chloride Level 99 mEQ/L (98-107) Carbon Dioxide Level 28 mEQ/L (20-30) Anion Gap 10 (5-15) Blood Urea Nitrogen 25 mg/dL (7-23) H Creatinine 0.5 mg/dL (0.7-1.2) L Estimat Glomerular Filtration Rate > 60 mL/min (>60) Glucose Level 96 mg/dL (74-106) Calcium Level 8.7 mg/dL (8.6-10.2) Neurologic Exam Objective PHYSICAL EXAMINATION: GENERAL: He is a well-developed, but lean and cachectic-looking gentleman, lying in bed, in a position. HEAD: Normocephalic and atraumatic. EENT: Examination benign. NECK: No neck rigidity was observed. NEUROLOGICAL EXAMINATION: MENTAL STATUS EXAMINATION: He was awake and alert. He was able to give a few yes /no answers. He was unable to cooperate for further mental status testing. SPEECH: He was able to say yes/no and was dysarthric. LANGUAGE: He was able to give a few yes/no answers CRANIAL NERVE EXAMINATION: II: He did blink to threat in all dimas. He, however, was unable to cooperate for confrontation testing and in addition was also unable to count fingers. III, IV & : The external ocular movements were full and the pupils 3 mm in diameter, equal, round, regular, and reactive to light. V: He had normal facial sensations and the temporales, masseters, and pterygoids functioned normally. VII: He had normal facial expressions and no facial asymmetry. VIII: He was able to hear and had no nystagmus. IX: The palate moved symmetrically on phonation. X: He had no hoarseness of voice. XI: The sternocleidomastoids and trapezii functioned normally. XII: The tongue was in the midline without any fasciculations or atrophy. MOTOR SYSTEM: The tone was increased in all four extremities with spasticity. Examination of muscle mass revealed severe generalized muscle wasting involving the lower extremities more than the upper extremities. Examination of power was impossible to perform on individual muscle groups. He had a significant quadriparesis involving the lower extremities more than the upper extremities. SENSORY EXAMINATION: He responded appropriately to deep pain. He was unable to cooperate for other sensory modalities. REFLEXES: 2++ and bilaterally symmetrical at the biceps, triceps, and brachioradialis. 2+ at both knees. 0 at both ankles. The plantar responses were flexor bilaterally. COORDINATION, STANCE & GAIT: Could not be tested. ABNORMAL MOVEMENTS: He exhibited choreoathetotic movements involving all his extremities and the facial muscles. In addition, he also exhibited bruxism. Impression/Recommendations Diagnostic Impression 1. Mr. Reece Murray is a 61-year-old, gentleman, of unknown handedness, who has a long history of Khalida's disease, who was hospitalized for "a change in mental state and generalized weakness." 2. He is brighter today and can give yes/no answers. He continues to exhibit choreoathetotic movements. He continues to be cognitively impoverished and weak. 3. On neurological examination, at this time, he does demonstrate global cerebral dysfunction. He is able to give a few yes/no answers but is unable to cooperate for further mental status testing. He also demonstrates generalized weakness and generalized wasting of the muscles. His deep tendon reflexes are globally diminished. He, in addition, exhibits choreoathetotic movements of all his extremities and facial muscles. 4. Laboratory data on initial evaluation revealed that he was significantly hyponatremic with a sodium of 127. His CK was elevated to 226. He was significantly hypoalbuminemic with an albumin of 2.6. His CBC revealed that he is anemic with a hemoglobin of 10.4 and his urinalysis revealed 1+ leukocyte esterase, 0 to 2 red blood cells per high-power field, 2 to 4 white blood cells per high-power field, and a few urinary bacteria. 5. His B12 and TSH are normal. 6. 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 7. His encephalopathy is better. Recommendations 1. Continue present management. 2. Aggressive treatment of the patient's infectious process. 3. Correction of the patient's metabolic dysfunction. 4. Observe closely. Garrison Reid M.D., M.S.P.Jamei. GARRISON REID Feb 04, 2017 17:28
--- NOTE | 2017-02-04 22:27 | General Progress Note ---
Assessment/Plan Assessment/Plan Hematology Progress Note ASSESSMENT: 1. Anemia 2/2 chronic disease. 2. Decreased Hgb and hematocrit 3. Hyponatremia- now improved. 4. Hypertension. 5. Acute exacerbation of chronic encephalopathy. 6. Sepsis with sacral decubitis ulcerations- on abx 7. Psychiatric history. RECS: 1. Monitor counts. 2. Anemia workup has been ordered- pt has anemia 2/2 chronic disease. 3. Hb goals above 7. 4. Peripheral smear reviewed- wnl. 5. Medications reviewed. 6. Abx per ID service. 7. GI eval with egd and/or colo d/t positive stool occult blood 8. Appreciate consultation Subjective ROS Limited/Unobtainable: Yes Constitutional: Reports: no symptoms HEENT: Reports: no symptoms Cardiovascular: Reports: no symptoms Respiratory: Reports: no symptoms Gastrointestinal/Abdominal: Reports: no symptoms Genitourinary: Reports: no symptoms Neurologic/Psychiatric: Reports: no symptoms Endocrine: Reports: no symptoms Hematologic/Lymphatic: Reports: anemia Allergies: Coded Allergies: No Known Allergies (Unverified , 10/23/14) Subjective pt more verbal, no bleeding, afebrile Objective Last 24 Hour Vital Signs Date Time Temp Pulse Resp B/P Pulse Ox O2 Delivery O2 Flow Rate FiO2 02/04/17 21:10 82 20 98 Nasal Cannula 3.0 32 02/04/17 21:00 81 18 94 Nasal Cannula 3.0 32 02/04/17 20:00 98.1 64 16 104/58 94 Nasal Cannula 02/04/17 19:36 94 Nasal Cannula 3.0 32 02/04/17 19:36 Nasal Cannula 3.0 32 02/04/17 16:17 97.8 66 21 108/63 96 Nasal Cannula 2.0 02/04/17 11:47 98.2 65 21 103/59 98 Nasal Cannula 2.0 02/04/17 10:02 78 20 98 Nasal Cannula 3.0 32 02/04/17 09:45 75 20 95 Nasal Cannula 3.0 32 02/04/17 07:56 Nasal Cannula 3.0 32 02/04/17 07:55 95 Nasal Cannula 3.0 32 02/04/17 07:52 97.3 72 21 139/61 95 Nasal Cannula 2.0 02/04/17 04:00 97.9 75 15 98/58 94 Nasal Cannula 02/04/17 00:00 97.5 60 15 93/63 98 Nasal Cannula 02/03/17 23:45 80 20 96 Nasal Cannula 3.0 32 02/03/17 23:30 64 20 92 Nasal Cannula 3.0 32 Intake and Output 02/03/17 02/04/17 19:00 07:00 Intake Total 590 ml 880 ml Output Total 800 ml 350 ml Balance -210 ml 530 ml Free Water 150 ml 100 ml IV Total 300 ml Tube Feeding 440 ml 480 ml Output Urine Total 800 ml 350 ml # Bowel Movements 3 Laboratory Tests 02/04/17 05:00: Stool Occult Blood Positive 02/04/17 05:55: White Blood Count 7.0, Red Blood Count 3.36L, Hemoglobin 10.4L, Hematocrit 31.7L , Mean Corpuscular Volume 94, Mean Corpuscular Hemoglobin 30.9, Mean Corpuscular Hemoglobin Concent 32.8, Red Cell Distribution Width 13.4, Platelet Count 493H, Mean Platelet Volume 5.1L, Neutrophils (%) (Auto) 69.5, Lymphocytes (%) (Auto) 20.6, Monocytes (%) (Auto) 6.0, Eosinophils (%) (Auto) 2.8, Basophils (%) (Auto) 1.1, Sodium Level 137, Potassium Level 4.7, Chloride Level 99, Carbon Dioxide Level 28, Anion Gap 10, Blood Urea Nitrogen 25H, Creatinine 0.5L, Estimat Glomerular Filtration Rate > 60, Glucose Level 96, Calcium Level 8.7 Height (Feet): 5 Height (Inches): 9.00 Weight (Pounds): 120 General Appearance: WD/WN EENT: normal ENT inspection Neck: normal alignment Cardiovascular: normal peripheral pulses Respiratory/Chest: lungs clear Extremities: non-tender Edema: no edema noted Leg (L), no edema noted Leg (R), no edema noted Pedal (L) , no edema noted Pedal (R), no edema noted Generalized Neurologic: credentials specialist II-XII grossly normal Skin: warm/dry William Bradley Feb 04, 2017 22:27
--- NOTE | 2017-02-04 22:35 | Infectious Diseases Prog Note ---
Assessment/Plan Problems: (1) Sepsis Assessment & Plan: Resolved. Due to HCAP and wound infection. (2) HCAP (healthcare-associated pneumonia) Assessment & Plan: SCx noted. Now on INH colistin. CXR better already. Status post Zosyn. (3) Sacral pressure ulcer Assessment & Plan: Stage IV. Infected. Wound culture noted. Now on Zyvox and ceftriaxone. Probably need a total of 6-week course till 03/07/2017. Continue with wound care. 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 (5) Multiple wounds Assessment & Plan: Details documented in chart - reviewed. Some abrasions due to extremely repetitive, uncontrolled chorea. Some pressure ulcers (ear and sacrum). Sacral ulcer with secondary infections. Continue with wound care. Subjective Allergies: Coded Allergies: No Known Allergies (Unverified , 10/23/14) Objective Vital Signs Last 24 Hour Vital Signs Date Time Temp Pulse Resp B/P Pulse Ox O2 Delivery O2 Flow Rate FiO2 02/04/17 21:10 82 20 98 Nasal Cannula 3.0 32 02/04/17 21:00 81 18 94 Nasal Cannula 3.0 32 02/04/17 20:00 98.1 64 16 104/58 94 Nasal Cannula 02/04/17 19:36 94 Nasal Cannula 3.0 32 02/04/17 19:36 Nasal Cannula 3.0 32 02/04/17 16:17 97.8 66 21 108/63 96 Nasal Cannula 2.0 02/04/17 11:47 98.2 65 21 103/59 98 Nasal Cannula 2.0 02/04/17 10:02 78 20 98 Nasal Cannula 3.0 32 02/04/17 09:45 75 20 95 Nasal Cannula 3.0 32 02/04/17 07:56 Nasal Cannula 3.0 32 02/04/17 07:55 95 Nasal Cannula 3.0 32 02/04/17 07:52 97.3 72 21 139/61 95 Nasal Cannula 2.0 02/04/17 04:00 97.9 75 15 98/58 94 Nasal Cannula 02/04/17 00:00 97.5 60 15 93/63 98 Nasal Cannula 02/03/17 23:45 80 20 96 Nasal Cannula 3.0 32 02/03/17 23:30 64 20 92 Nasal Cannula 3.0 32 Height (Feet): 5 Height (Inches): 9.00 Weight (Pounds): 120 Laboratory Tests Test 02/04/17 05:00 02/04/17 05:55 Stool Occult Blood Positive (NEGATIVE) White Blood Count 7.0 K/UL (4.8-10.8) Red Blood Count 3.36 M/UL (4.70-6.10) L Hemoglobin 10.4 G/DL (14.2-18.0) L Hematocrit 31.7 % (42.0-52.0) L Mean Corpuscular Volume 94 FL (80-99) Mean Corpuscular Hemoglobin 30.9 PG (27.0-31.0) Mean Corpuscular Hemoglobin Concent 32.8 G/DL (32.0-36.0) Red Cell Distribution Width 13.4 % (11.6-14.8) Platelet Count 493 K/UL (150-450) H Mean Platelet Volume 5.1 FL (6.5-10.1) L Neutrophils (%) (Auto) 69.5 % (45.0-75.0) Lymphocytes (%) (Auto) 20.6 % (20.0-45.0) Monocytes (%) (Auto) 6.0 % (1.0-10.0) Eosinophils (%) (Auto) 2.8 % (0.0-3.0) Basophils (%) (Auto) 1.1 % (0.0-2.0) Sodium Level 137 mEQ/L (135-145) Potassium Level 4.7 mEQ/L (3.4-4.9) Chloride Level 99 mEQ/L (98-107) Carbon Dioxide Level 28 mEQ/L (20-30) Anion Gap 10 (5-15) Blood Urea Nitrogen 25 mg/dL (7-23) H Creatinine 0.5 mg/dL (0.7-1.2) L Estimat Glomerular Filtration Rate > 60 mL/min (>60) Glucose Level 96 mg/dL (74-106) Calcium Level 8.7 mg/dL (8.6-10.2) Current Medications Medications (Trade) Dose Ordered Sig/Poornima Route PRN Reason Start Time Stop Time Status Last Admin Dose Admin Aspirin (ASA) 81 mg DAILY GT 02/02/17 09:00 03/04/17 08:59 02/04/17 08:33 Ceftriaxone Sodium/Dextrose (Rocephin/D5W) 110 ml @ 220 mls/hr Q24H IVPB 02/03/17 14:00 02/10/17 13:59 02/04/17 15:05 Colistimethate Sodium 150 mg 150 mg Q12HRT INH 02/01/17 13:00 02/08/17 12:59 02/04/17 20:57 Heparin Sodium (Porcine) (Heparin 5000 units/ml) 5,000 units EVERY 8 HOURS SUBQ 02/01/17 14:00 03/03/17 13:59 02/04/17 22:05 Lansoprazole (Prevacid) 30 mg DAILY GT 02/03/17 10:00 03/05/17 09:59 02/04/17 08:33 Linezolid (Zyvox) 300 ml @ 300 mls/hr Q12HR IVPB 02/01/17 21:00 02/08/17 20:59 02/04/17 21:56 Lorazepam (Ativan) 1 mg Q6H PRN GT For Anxiety 02/04/17 14:15 02/11/17 14:14 02/04/17 15:05 Midodrine (Pro-Amatine) 10 mg Q8HR GT 02/03/17 14:00 03/05/17 13:59 02/04/17 22:05 Olanzapine (ZyPREXA) 2.5 mg Q4H PRN GT Agitation 02/01/17 12:15 03/03/17 12:14 02/04/17 18:15 TANNER SIMEON Feb 04, 2017 22:35
--- NOTE | 2017-02-04 23:57 | Cardiology Progress Note ---
Assessment/Plan Assessment/Plan 1. Dyspnea likely due to bilateral pneumonia, pulmonary toilet, IV ABx, hydration and O2 therapy. 2. Hypotension, persistent continue midodrine 3. Hx of CAD, ? details, stable with no ECG ischemic features 4. Hx of HTN 5. Hx of DM 6. Khalida disease Subjective Subjective No cardiac events. Denies chest pain or SOB. Objective Last 24 Hour Vital Signs Date Time Temp Pulse Resp B/P Pulse Ox O2 Delivery O2 Flow Rate FiO2 02/04/17 23:49 98.1 63 14 99/55 95 Nasal Cannula 02/04/17 21:10 82 20 98 Nasal Cannula 3.0 32 02/04/17 21:00 81 18 94 Nasal Cannula 3.0 32 02/04/17 20:00 98.1 64 16 104/58 94 Nasal Cannula 02/04/17 19:36 94 Nasal Cannula 3.0 32 02/04/17 19:36 Nasal Cannula 3.0 32 02/04/17 16:17 97.8 66 21 108/63 96 Nasal Cannula 2.0 02/04/17 11:47 98.2 65 21 103/59 98 Nasal Cannula 2.0 02/04/17 10:02 78 20 98 Nasal Cannula 3.0 32 02/04/17 09:45 75 20 95 Nasal Cannula 3.0 32 02/04/17 07:56 Nasal Cannula 3.0 32 02/04/17 07:55 95 Nasal Cannula 3.0 32 02/04/17 07:52 97.3 72 21 139/61 95 Nasal Cannula 2.0 02/04/17 04:00 97.9 75 15 98/58 94 Nasal Cannula 02/04/17 00:00 97.5 60 15 93/63 98 Nasal Cannula Intake and Output 02/03/17 02/04/17 19:00 07:00 Intake Total 590 ml 880 ml Output Total 800 ml 350 ml Balance -210 ml 530 ml Free Water 150 ml 100 ml IV Total 300 ml Tube Feeding 440 ml 480 ml Output Urine Total 800 ml 350 ml # Bowel Movements 3 2D Echo: Normal LVEF, RVSP 28 mmHg Laboratory Tests Test 02/04/17 05:00 02/04/17 05:55 Stool Occult Blood Positive (NEGATIVE) White Blood Count 7.0 K/UL (4.8-10.8) Red Blood Count 3.36 M/UL (4.70-6.10) L Hemoglobin 10.4 G/DL (14.2-18.0) L Hematocrit 31.7 % (42.0-52.0) L Mean Corpuscular Volume 94 FL (80-99) Mean Corpuscular Hemoglobin 30.9 PG (27.0-31.0) Mean Corpuscular Hemoglobin Concent 32.8 G/DL (32.0-36.0) Red Cell Distribution Width 13.4 % (11.6-14.8) Platelet Count 493 K/UL (150-450) H Mean Platelet Volume 5.1 FL (6.5-10.1) L Neutrophils (%) (Auto) 69.5 % (45.0-75.0) Lymphocytes (%) (Auto) 20.6 % (20.0-45.0) Monocytes (%) (Auto) 6.0 % (1.0-10.0) Eosinophils (%) (Auto) 2.8 % (0.0-3.0) Basophils (%) (Auto) 1.1 % (0.0-2.0) Sodium Level 137 mEQ/L (135-145) Potassium Level 4.7 mEQ/L (3.4-4.9) Chloride Level 99 mEQ/L (98-107) Carbon Dioxide Level 28 mEQ/L (20-30) Anion Gap 10 (5-15) Blood Urea Nitrogen 25 mg/dL (7-23) H Creatinine 0.5 mg/dL (0.7-1.2) L Estimat Glomerular Filtration Rate > 60 mL/min (>60) Glucose Level 96 mg/dL (74-106) Calcium Level 8.7 mg/dL (8.6-10.2) Objective HEENT: Normocephalic and atraumatic. Pupils reactive to light. Dry oral mucosa. No ulceration or exudate. NECK: No JVD, no carotid bruit, carotid upstroke 2+ B/L CARDIOVASCULAR: Normal S1S2, Regular, rate and rhythm. No murmurs, gallops or rubs. LUNGS: Diminished BS both lungs, crackles on the right base ABDOMEN: Soft, nontender, and nondistended. G-tube site looks intact. EXTREMITIES: No edema clubbing or cyanosis. BEAU JC Feb 04, 2017 23:57
[2017-02-05 03:59] VITALS: BP 105/68
[2017-02-05] MEDS: Midodrine 10mg tab GT SCH ×3 (05:21→21:36)
[2017-02-05] MEDS: Heparin 5000 units/ml inj SUBQ SCH ×3 (05:22→21:38)
[2017-02-05] MEDS: LORazepam 1mg tab GT PRN ×2 (05:26→14:45)
[2017-02-05 08:15] VITALS: BP 101/59
[2017-02-05] MEDS: Aspirin Baby 81mg GT SCH (08:43)
[2017-02-05] MEDS: Colistin for inhalation INH SCH ×2 (09:23→21:48)
--- NOTE | 2017-02-05 11:14 | General Progress Note ---
Assessment/Plan Status: stable - from renal stand Assessment/Plan HypoNatremia- depletional vs SIADH-Resolved DM, Proteinuria Pneumonia- Hypotension PH: 1. History of hypertension. 2. [place]'s disease. 3. Psychosis. 4. Hyperlipidemia. 5. Diabetes. 6. Mood disorder. 7. Benign prostatic hypertrophy. Plan: On feeding Restart Midodrin 3% saline- prn gastric support- Monitor Lytes- Keep BP and BS in check Per ID Subjective ROS Limited/Unobtainable: No Constitutional: Reports: malaise Allergies: Coded Allergies: No Known Allergies (Unverified , 10/23/14) Objective Last 24 Hour Vital Signs Date Time Temp Pulse Resp B/P Pulse Ox O2 Delivery O2 Flow Rate FiO2 02/05/17 09:39 76 20 98 Nasal Cannula 2.0 28 02/05/17 09:29 32 02/05/17 09:29 77 20 95 Nasal Cannula 2.0 28 02/05/17 09:29 Nasal Cannula 2.0 28 02/05/17 09:29 95 Nasal Cannula 2.0 28 02/05/17 08:15 98.1 64 20 101/59 97 Nasal Cannula 2.0 02/05/17 03:59 98.2 64 16 105/68 98 Nasal Cannula 02/04/17 23:49 98.1 63 14 99/55 95 Nasal Cannula 02/04/17 21:10 82 20 98 Nasal Cannula 3.0 32 02/04/17 21:00 81 18 94 Nasal Cannula 3.0 32 02/04/17 20:00 98.1 64 16 104/58 94 Nasal Cannula 02/04/17 19:36 94 Nasal Cannula 3.0 32 02/04/17 19:36 Nasal Cannula 3.0 32 02/04/17 16:17 97.8 66 21 108/63 96 Nasal Cannula 2.0 02/04/17 11:47 98.2 65 21 103/59 98 Nasal Cannula 2.0 Intake and Output 02/04/17 02/05/17 19:00 07:00 Intake Total 570 ml 760 ml Output Total 725 ml 600 ml Balance -155 ml 160 ml Intake Oral 0 ml Free Water 90 ml 60 ml IV Total 300 ml Tube Feeding 480 ml 400 ml Output Urine Total 725 ml 600 ml # Bowel Movements 2 Height (Feet): 5 Height (Inches): 9.00 Weight (Pounds): 120 General Appearance: no apparent distress Objective no change in PE SHILOH HUTSON Feb 05, 2017 11:14
[2017-02-05 12:09] VITALS: BP 106/61
--- NOTE | 2017-02-05 12:31 | General Progress Note ---
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 SNOMED: 11673817 (4) Hyponatremia ICD Codes: E87.1 - Hypo-osmolality and hyponatremia SNOMED: 20578326 (5) Pneumonia ICD Codes: J18.9 - Pneumonia, unspecified organism SNOMED: 556745987 (6) Weakness generalized ICD Codes: R53.1 - Weakness SNOMED: 79370586 Status: progressing Assessment/Plan afebrile roberta disease sepsis infected wound multiple wounds deep wounds iv abx for 5 weeks per id Subjective ROS Limited/Unobtainable: Yes Allergies: Coded Allergies: No Known Allergies (Unverified , 10/23/14) Objective Last 24 Hour Vital Signs Date Time Temp Pulse Resp B/P Pulse Ox O2 Delivery O2 Flow Rate FiO2 02/05/17 12:09 98.1 63 21 106/61 98 Nasal Cannula 2.0 02/05/17 09:39 76 20 98 Nasal Cannula 2.0 28 02/05/17 09:29 32 02/05/17 09:29 77 20 95 Nasal Cannula 2.0 28 02/05/17 09:29 Nasal Cannula 2.0 28 02/05/17 09:29 95 Nasal Cannula 2.0 28 02/05/17 08:15 98.1 64 20 101/59 97 Nasal Cannula 2.0 02/05/17 03:59 98.2 64 16 105/68 98 Nasal Cannula 02/04/17 23:49 98.1 63 14 99/55 95 Nasal Cannula 02/04/17 21:10 82 20 98 Nasal Cannula 3.0 32 02/04/17 21:00 81 18 94 Nasal Cannula 3.0 32 02/04/17 20:00 98.1 64 16 104/58 94 Nasal Cannula 02/04/17 19:36 94 Nasal Cannula 3.0 32 02/04/17 19:36 Nasal Cannula 3.0 32 02/04/17 16:17 97.8 66 21 108/63 96 Nasal Cannula 2.0 Intake and Output 02/04/17 02/05/17 19:00 07:00 Intake Total 570 ml 760 ml Output Total 725 ml 600 ml Balance -155 ml 160 ml Intake Oral 0 ml Free Water 90 ml 60 ml IV Total 300 ml Tube Feeding 480 ml 400 ml Output Urine Total 725 ml 600 ml # Bowel Movements 2 Height (Feet): 5 Height (Inches): 9.00 Weight (Pounds): 120 General Appearance: confused Neck: supple Cardiovascular: normal rate Respiratory/Chest: lungs clear Kyle Nieves MD Feb 05, 2017 12:31
--- NOTE | 2017-02-05 14:12 | Neurology Progress Note ---
Interim History Interim History Interim History Mr. Murray is subdued today. He is non verbal. He is less responsive. His choreoathetotic movements are less robust.. He continues to be cognitively impoverished and generally weak. There has been no significant change in his condition. Review of Systems Neuro Review of Systems Unable to obtain. Objective Physical Exam Last Vital Signs Date Time Temp Pulse Resp B/P Pulse Ox O2 Delivery O2 Flow Rate FiO2 02/05/17 12:09 98.1 63 21 106/61 98 Nasal Cannula 2.0 02/05/17 09:39 28 Neurologic Exam Objective PHYSICAL EXAMINATION: GENERAL: He is a well-developed, but lean and cachectic-looking gentleman, lying in bed, in a position. HEAD: Normocephalic and atraumatic. EENT: Examination benign. NECK: No neck rigidity was observed. NEUROLOGICAL EXAMINATION: MENTAL STATUS EXAMINATION: He was awake but not alert. He was unable to communicate. He was unable to cooperate for further mental status testing. SPEECH: He was mute. LANGUAGE: Could not be tested. CRANIAL NERVE EXAMINATION: II: He did blink to threat. He, however, was unable to cooperate for confrontation testing and in addition was also unable to count fingers. III, IV & : The external ocular movements were full and the pupils 3 mm in diameter, equal, round, regular, and reactive to light. V: He had normal facial sensations and the temporales, masseters, and pterygoids functioned normally. VII: He had normal facial expressions and no facial asymmetry. VIII: He was able to hear and had no nystagmus. IX: The palate moved symmetrically on phonation. X: He had no hoarseness of voice. XI: The sternocleidomastoids and trapezii functioned normally. XII: The tongue was in the midline without any fasciculations or atrophy. MOTOR SYSTEM: The tone was increased in all four extremities with spasticity. Examination of muscle mass revealed severe generalized muscle wasting involving the lower extremities more than the upper extremities. Examination of power was impossible to perform on individual muscle groups. He had a significant quadriparesis involving the lower extremities more than the upper extremities. SENSORY EXAMINATION: He responded appropriately to deep pain. He was unable to cooperate for other sensory modalities. REFLEXES: 2++ and bilaterally symmetrical at the biceps, triceps, and brachioradialis. 2+ at both knees. 0 at both ankles. The plantar responses were flexor bilaterally. COORDINATION, STANCE & GAIT: Could not be tested. ABNORMAL MOVEMENTS: He exhibited choreoathetotic movements involving all his extremities and the facial muscles. In addition, he also exhibited bruxism. Impression/Recommendations Diagnostic Impression 1. Mr. Reece Murray is a 61-year-old, gentleman, of unknown handedness, who has a long history of Khalida's disease, who was hospitalized for "a change in mental state and generalized weakness." 2. He is subdued today and is non verbal. He continues to exhibit choreoathetotic movements. He continues to be cognitively impoverished and weak. 3. On neurological examination, at this time, he does demonstrate global cerebral dysfunction. He is unable to communicate and is unable to cooperate for further mental status testing. He also demonstrates generalized weakness and generalized wasting of the muscles. His deep tendon reflexes are globally diminished. He, in addition, exhibits choreoathetotic movements of all his extremities and facial muscles. 4. Laboratory data on initial evaluation revealed that he was significantly hyponatremic with a sodium of 127. His CK was elevated to 226. He was significantly hypoalbuminemic with an albumin of 2.6. His CBC revealed that he is anemic with a hemoglobin of 10.4 and his urinalysis revealed 1+ leukocyte esterase, 0 to 2 red blood cells per high-power field, 2 to 4 white blood cells per high-power field, and a few urinary bacteria. 5. His B12 and TSH are normal. 6. The patient's history and neurological examination are most compatible with underlying advanced [place]'s disease with a superadded encephalopathy most probably related to the hyponatremia and urinary tract infection. 7. His encephalopathy is worse today. Recommendations 1. Continue present management. 2. Aggressive treatment of the patient's infectious process. 3. Correction of the patient's metabolic dysfunction. 4. Observe closely. Garrison Reid M.D., MVaishnaviSGARRISON MCCOY Feb 05, 2017 14:12
[2017-02-05] MEDS: cefTRIAXone 2 GM in D5W 110 ML IVPB SCH (14:45)
[2017-02-05 15:32] VITALS: BP 105/65
[2017-02-05] MEDS ORDERED: Sterile Water Irrig 1000ml IRRIG ONE (16:35)
[2017-02-05 20:00] VITALS: BP 105/70
--- NOTE | 2017-02-05 22:05 | Wound Care Consultation ---
Wound Assessment Wound Assessment #1: Wound Present on Admission: Yes New Wound: No Status Change of Wound: No Wound Location Body Site Modif: left, right, lower Wound Location Body Site: leg Wound Type: scar - and dry scabs (scattered) Maryam Test: Does not Maryam Wound Thickness: Full Thickness Wound Drainage Amount: None Wound Drainage Odor: None/Absent Tissue Surrounding Wound: Intact Wound General Appearance: Asymptomatic Wound Assessment #2: Wound Number: #2 Wound Present on Admission: Yes New Wound: No Status Change of Wound: No Wound Location Body Site Modif: right, anterior Wound Location Body Site: ear Wound Type: pressure ulcer Maryam Test: Does not Maryam Pressure Ulcer Stage: deep tissue injury Wound Thickness: Full Thickness Wound Length: 3.0 Wound Width: 0.3 Wound Depth: utd Percent of Wound Purple/Maroon: 100 Wound Drainage Amount: None Wound Drainage Odor: None/Absent Tissue Surrounding Wound: Erythemic Wound General Appearance: Reddened Wound Assessment #3: Wound Number: #3 Wound Present on Admission: Yes New Wound: No Status Change of Wound: No Wound Location Body Site Modif: right, posterior Wound Location Body Site: ear Wound Type: pressure ulcer Maryam Test: Does not Maryam Pressure Ulcer Stage: III Wound Thickness: Full Thickness Wound Length: 1.0 Wound Width: 0.8 Wound Depth: 0.3 Percent of Wound [place]/Red: 100 Wound Drainage Description: Serosanguineous Wound Drainage Amount: Scant Wound Drainage Odor: None/Absent Tissue Surrounding Wound: Erythemic Wound General Appearance: Reddened Wound Assessment #4: Wound Number: #4 Wound Present on Admission: No New Wound: No Status Change of Wound: No Wound Location Body Site Modif: left, posterior Wound Location Body Site: ear Wound Type: pressure ulcer Maryam Test: Does not Maryam Pressure Ulcer Stage: II Wound Thickness: Full Thickness Wound Length: 0.8 Wound Width: 0.8 Wound Depth: 0.1 Percent of Wound [place]/Red: 100 Wound Drainage Description: Serosanguineous Wound Drainage Amount: Scant Wound Drainage Odor: None/Absent Tissue Surrounding Wound: Erythemic Wound General Appearance: Reddened Wound Assessment #5: Wound Number: #5 Wound Present on Admission: Yes New Wound: No Status Change of Wound: No Wound Location Body Site Modif: mid Wound Location Body Site: sacral Wound Type: pressure ulcer Maryam Test: Does not Maryam Pressure Ulcer Stage: IV/unstageable Wound Thickness: Full Thickness Wound Length: 8.0 Wound Width: 6.0 Wound Depth: utd Percent of Wound [place]/Red: 30 Percent of Wound Bed Yellow/Wh: 40 Percent of Wound Purple/Maroon: 30 Wound Drainage Description: Serosanguineous Wound Drainage Amount: Moderate Wound Drainage Odor: None/Absent Tissue Surrounding Wound: Macerated Wound General Appearance: Draining, Necrotic Wound Assessment #6: Wound Number: #6 Wound Present on Admission: Yes New Wound: No Status Change of Wound: No Wound Location Body Site Modif: right, upper Wound Location Body Site: back Wound Type: pressure ulcer Maryam Test: Does not Maryam Pressure Ulcer Stage: I Wound Thickness: Full Thickness Wound Length: 2.0 Wound Width: 3.0 Percent of Wound [place]/Red: 100 Wound Drainage Amount: None Wound Drainage Odor: None/Absent Tissue Surrounding Wound: Intact Wound General Appearance: Reddened Wound Assessment #7: Wound Number: #7 Wound Present on Admission: Yes New Wound: No Status Change of Wound: No Wound Location Body Site Modif: left, anterior Wound Location Body Site: ear Wound Type: pressure ulcer Maryam Test: Does not Maryam Pressure Ulcer Stage: III Wound Thickness: Full Thickness Wound Length: 1.0 Wound Width: 0.3 Wound Depth: 0.3 Percent of Wound [place]/Red: 100 Wound Drainage Description: Serosanguineous Wound Drainage Amount: Scant Wound Drainage Odor: None/Absent Tissue Surrounding Wound: Erythemic Wound General Appearance: Reddened Wound Comment #1 Right anterior ear DTI pressure ulcer #2 Right posterior ear DTI revealed as stage III pressure ulcer #3 Left anterior ear DTI revealed as stage III pressure ulcer #4 Left posterior ear stage II pressure ulcer #5 Sacral stage IV/unstageable pressure ulcer #6 Right upper back stage I pressure ulcer #7 Left and right lower legs with multiple scattered dry scabs and scars Recommendation -Sacral pressure ulcer Cleanse with saline, pat dry, apply Therahoney gel to wound bed, apply Triad cream to lynette wound area, apply calcium alginate, cover with Bordered gauze daily and PRN soiled/dislodged -Left and Right ears with stage III pressure ulcer Cleanse with saline, pat dry, apply Triad cream, cover with bordered gauze daily and PRN soiled/dislodged -Local wound care as ordered for DTI on left ear -Local wound care per protocol for stage I on right upper back -Turn and reposition -Keep clean and dry -Optimize nutrition -Offload both heels -Heel protector on both heels -Assess and f/u accordingly for any changes THERESA SILVER RN Feb 05, 2017 22:05
--- NOTE | 2017-02-05 22:42 | Infectious Diseases Prog Note ---
Assessment/Plan Problems: (1) Sepsis Assessment & Plan: Resolved. Due to HCAP and wound infection. (2) HCAP (healthcare-associated pneumonia) Assessment & Plan: SCx noted. Finish INH colistin. CXR better already. Status post Zosyn. (3) Sacral pressure ulcer Assessment & Plan: Stage IV. Infected. Probably has osteomyelitis. Wound culture noted. Now on Zyvox and ceftriaxone. Probably need a total of 6-week course till 03/07/2017. Continue with wound care. 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 (5) Multiple wounds Assessment & Plan: Details documented in chart - reviewed. Some abrasions due to extremely repetitive, uncontrolled chorea. Some pressure ulcers (ear and sacrum). Sacral ulcer with secondary infections. Continue with wound care. Subjective Allergies: Coded Allergies: No Known Allergies (Unverified , 10/23/14) Objective Vital Signs Last 24 Hour Vital Signs Date Time Temp Pulse Resp B/P Pulse Ox O2 Delivery O2 Flow Rate FiO2 02/05/17 21:49 77 20 98 Nasal Cannula 2.0 28 02/05/17 21:48 Nasal Cannula 2.0 28 02/05/17 21:48 95 Nasal Cannula 2.0 28 02/05/17 21:40 28 02/05/17 21:40 76 20 94 Nasal Cannula 2.0 28 02/05/17 20:00 98.1 68 18 105/70 93 Nasal Cannula 2.0 02/05/17 15:32 97.3 68 21 105/65 97 Nasal Cannula 2.0 02/05/17 12:09 98.1 63 21 106/61 98 Nasal Cannula 2.0 02/05/17 09:39 76 20 98 Nasal Cannula 2.0 28 02/05/17 09:29 32 02/05/17 09:29 77 20 95 Nasal Cannula 2.0 28 02/05/17 09:29 Nasal Cannula 2.0 28 02/05/17 09:29 95 Nasal Cannula 2.0 28 02/05/17 08:15 98.1 64 20 101/59 97 Nasal Cannula 2.0 02/05/17 03:59 98.2 64 16 105/68 98 Nasal Cannula 02/04/17 23:49 98.1 63 14 99/55 95 Nasal Cannula Height (Feet): 5 Height (Inches): 9.00 Weight (Pounds): 120 Current Medications Medications (Trade) Dose Ordered Sig/Poornima Route PRN Reason Start Time Stop Time Status Last Admin Dose Admin Aspirin (ASA) 81 mg DAILY GT 02/02/17 09:00 03/04/17 08:59 02/05/17 08:43 Ceftriaxone Sodium/Dextrose (Rocephin/D5W) 110 ml @ 220 mls/hr Q24H IVPB 02/03/17 14:00 02/10/17 13:59 02/05/17 14:45 Colistimethate Sodium 150 mg 150 mg Q12HRT INH 02/01/17 13:00 02/08/17 12:59 02/05/17 21:48 Heparin Sodium (Porcine) (Heparin 5000 units/ml) 5,000 units EVERY 8 HOURS SUBQ 02/01/17 14:00 03/03/17 13:59 02/05/17 21:38 Lansoprazole (Prevacid) 30 mg DAILY GT 02/03/17 10:00 03/05/17 09:59 02/05/17 08:45 Linezolid (Zyvox) 600 mg Q12HR GT 02/05/17 09:00 02/10/17 08:59 02/05/17 21:37 Lorazepam (Ativan) 1 mg Q6H PRN GT For Anxiety 02/04/17 14:15 02/11/17 14:14 02/05/17 14:45 Midodrine (Pro-Amatine) 10 mg Q8HR GT 02/03/17 14:00 03/05/17 13:59 02/05/17 21:36 Olanzapine (ZyPREXA) 2.5 mg Q4H PRN GT Agitation 02/01/17 12:15 03/03/17 12:14 02/04/17 18:15 TANNER SIMEON Feb 05, 2017 22:42
--- NOTE | 2017-02-05 23:38 | General Progress Note ---
Assessment/Plan Assessment/Plan Hematology Progress Note ASSESSMENT: 1. Anemia 2/2 chronic disease. 2. Decreased Hgb and hematocrit 3. Hyponatremia- now improved. 4. Hypertension. 5. Acute exacerbation of chronic encephalopathy. 6. Sepsis with sacral decubitis ulcerations- on abx 7. Psychiatric history. RECS: 1. Monitor counts. 2. Anemia workup has been ordered- pt has anemia 2/2 chronic disease. 3. Hb goals above 7. 4. Peripheral smear reviewed- wnl. 5. Medications reviewed. 6. Abx per ID service. 7. GI eval with egd and/or colo d/t positive stool occult blood 8. Appreciate consultation Subjective Constitutional: Reports: no symptoms HEENT: Reports: no symptoms Cardiovascular: Reports: no symptoms Respiratory: Reports: no symptoms Gastrointestinal/Abdominal: Reports: no symptoms Genitourinary: Reports: no symptoms Neurologic/Psychiatric: Reports: no symptoms Endocrine: Reports: no symptoms Hematologic/Lymphatic: Reports: anemia Allergies: Coded Allergies: No Known Allergies (Unverified , 10/23/14) Subjective minimally interactive, pt in NAD, no bleeding Objective Last 24 Hour Vital Signs Date Time Temp Pulse Resp B/P Pulse Ox O2 Delivery O2 Flow Rate FiO2 02/05/17 21:49 77 20 98 Nasal Cannula 2.0 28 02/05/17 21:48 Nasal Cannula 2.0 28 02/05/17 21:48 95 Nasal Cannula 2.0 28 02/05/17 21:40 28 02/05/17 21:40 76 20 94 Nasal Cannula 2.0 28 02/05/17 20:00 98.1 68 18 105/70 93 Nasal Cannula 2.0 02/05/17 15:32 97.3 68 21 105/65 97 Nasal Cannula 2.0 02/05/17 12:09 98.1 63 21 106/61 98 Nasal Cannula 2.0 02/05/17 09:39 76 20 98 Nasal Cannula 2.0 28 02/05/17 09:29 32 02/05/17 09:29 77 20 95 Nasal Cannula 2.0 28 02/05/17 09:29 Nasal Cannula 2.0 28 02/05/17 09:29 95 Nasal Cannula 2.0 28 02/05/17 08:15 98.1 64 20 101/59 97 Nasal Cannula 2.0 02/05/17 03:59 98.2 64 16 105/68 98 Nasal Cannula 02/04/17 23:49 98.1 63 14 99/55 95 Nasal Cannula Intake and Output 02/04/17 02/05/17 19:00 07:00 Intake Total 570 ml 800 ml Output Total 725 ml 600 ml Balance -155 ml 200 ml Intake Oral 0 ml Free Water 90 ml 60 ml IV Total 300 ml Tube Feeding 480 ml 440 ml Output Urine Total 725 ml 600 ml # Bowel Movements 2 Height (Feet): 5 Height (Inches): 9.00 Weight (Pounds): 120 General Appearance: WD/WN EENT: PERRL/EOMI Neck: non-tender Cardiovascular: normal peripheral pulses Respiratory/Chest: lungs clear Abdomen: non tender Extremities: non-tender Edema: no edema noted Leg (L), no edema noted Leg (R), no edema noted Pedal (L) , no edema noted Pedal (R), no edema noted 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
[2017-02-06] VITALS: BP 115/72
[2017-02-06] MEDS: LORazepam 1mg tab GT PRN (03:59)
[2017-02-06] MEDS: Midodrine 10mg tab GT SCH ×2 (05:44→15:39)
[2017-02-06] MEDS: Heparin 5000 units/ml inj SUBQ SCH ×2 (05:45→15:40)
[2017-02-06 08:00] VITALS: BP 20/95
[2017-02-06] MEDS: Aspirin Baby 81mg GT SCH (08:09)
--- NOTE | 2017-02-06 10:14 | General Progress Note ---
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 SNOMED: 50554083 (4) Hyponatremia ICD Codes: E87.1 - Hypo-osmolality and hyponatremia SNOMED: 65646712 (5) Pneumonia ICD Codes: J18.9 - Pneumonia, unspecified organism SNOMED: 196917665 (6) Weakness generalized ICD Codes: R53.1 - Weakness SNOMED: 70562671 Status: progressing Assessment/Plan multi organism infected wound on multiple abx for deep wounds roberta disease sepsis infected wound multiple wounds deep wound Subjective ROS Limited/Unobtainable: Yes Constitutional: Reports: no symptoms Allergies: Coded Allergies: No Known Allergies (Unverified , 10/23/14) Objective Last 24 Hour Vital Signs Date Time Temp Pulse Resp B/P Pulse Ox O2 Delivery O2 Flow Rate FiO2 02/06/17 08:00 97.3 59 20 20/95 95 Nasal Cannula 3.0 02/06/17 07:56 Nasal Cannula 2.0 02/06/17 07:55 95 Nasal Cannula 2.0 02/06/17 04:00 98.2 18 94 Nasal Cannula 2.0 02/06/17 00:00 98.2 64 18 115/72 96 Nasal Cannula 2.0 02/05/17 21:49 77 20 98 Nasal Cannula 2.0 28 02/05/17 21:48 Nasal Cannula 2.0 28 02/05/17 21:48 95 Nasal Cannula 2.0 28 02/05/17 21:40 28 02/05/17 21:40 76 20 94 Nasal Cannula 2.0 28 02/05/17 20:00 98.1 68 18 105/70 93 Nasal Cannula 2.0 02/05/17 15:32 97.3 68 21 105/65 97 Nasal Cannula 2.0 02/05/17 12:09 98.1 63 21 106/61 98 Nasal Cannula 2.0 Intake and Output 02/05/17 02/06/17 19:00 07:00 Intake Total 530 ml 530 ml Output Total 550 ml Balance -20 ml 530 ml Intake Oral 0 ml Free Water 100 ml 50 ml IV Total 110 ml Tube Feeding 320 ml 480 ml Output Urine Total 550 ml # Bowel Movements 4 Height (Feet): 5 Height (Inches): 9.00 Weight (Pounds): 120 General Appearance: confused Neck: supple Cardiovascular: normal rate Respiratory/Chest: lungs clear Abdomen: soft Kyle Nieves MD Feb 06, 2017 10:14
[2017-02-06] MEDS: Colistin for inhalation INH SCH (11:09)
[2017-02-06 12:00] VITALS: BP 117/72
--- NOTE | 2017-02-06 12:22 | General Progress Note ---
Assessment/Plan Status: stable Assessment/Plan HypoNatremia- depletional vs SIADH-Resolved DM, Proteinuria Pneumonia- Hypotension PH: 1. History of hypertension. 2. Daniels's disease. 3. Psychosis. 4. Hyperlipidemia. 5. Diabetes. 6. Mood disorder. 7. Benign prostatic hypertrophy. Plan: On feeding Restart Midodrin 3% saline- prn gastric support- Monitor Lytes- Keep BP and BS in check Per ID Subjective ROS Limited/Unobtainable: No Allergies: Coded Allergies: No Known Allergies (Unverified , 10/23/14) Objective Last 24 Hour Vital Signs Date Time Temp Pulse Resp B/P Pulse Ox O2 Delivery O2 Flow Rate FiO2 02/06/17 11:15 74 20 99 Nasal Cannula 3.0 02/06/17 11:00 74 20 96 Nasal Cannula 3.0 02/06/17 08:00 97.3 59 20 20/95 95 Nasal Cannula 3.0 02/06/17 07:56 Nasal Cannula 2.0 02/06/17 07:55 95 Nasal Cannula 2.0 02/06/17 04:00 98.2 18 94 Nasal Cannula 2.0 02/06/17 00:00 98.2 64 18 115/72 96 Nasal Cannula 2.0 02/05/17 21:49 77 20 98 Nasal Cannula 2.0 28 02/05/17 21:48 Nasal Cannula 2.0 28 02/05/17 21:48 95 Nasal Cannula 2.0 28 02/05/17 21:40 28 02/05/17 21:40 76 20 94 Nasal Cannula 2.0 28 02/05/17 20:00 98.1 68 18 105/70 93 Nasal Cannula 2.0 02/05/17 15:32 97.3 68 21 105/65 97 Nasal Cannula 2.0 Intake and Output 02/05/17 02/06/17 19:00 07:00 Intake Total 530 ml 530 ml Output Total 550 ml Balance -20 ml 530 ml Intake Oral 0 ml Free Water 100 ml 50 ml IV Total 110 ml Tube Feeding 320 ml 480 ml Output Urine Total 550 ml # Bowel Movements 4 Height (Feet): 5 Height (Inches): 9.00 Weight (Pounds): 120 General Appearance: no apparent distress Objective no change in PE SHILOH HUTSON Feb 06, 2017 12:22
--- NOTE | 2017-02-06 12:41 | Neurology Progress Note ---
Interim History Interim History Interim History Mr. Murray is awake and brighter today. He is non verbal. He is more responsive. His choreoathetotic movements are more robust. He continues to be cognitively impoverished and generally weak. There has been no significant change in his condition. Review of Systems Neuro Review of Systems Unable to obtain. Objective Physical Exam Last Vital Signs Date Time Temp Pulse Resp B/P Pulse Ox O2 Delivery O2 Flow Rate FiO2 02/06/17 11:15 74 20 99 Nasal Cannula 3.0 02/06/17 08:00 97.3 20/95 02/05/17 21:49 28 Neurologic Exam Objective PHYSICAL EXAMINATION: GENERAL: He is a well-developed, but lean and cachectic-looking gentleman, lying in bed, in a position. HEAD: Normocephalic and atraumatic. EENT: Examination benign. NECK: No neck rigidity was observed. NEUROLOGICAL EXAMINATION: MENTAL STATUS EXAMINATION: He was awake and more alert. He was unable to communicate. He was unable to cooperate for further mental status testing. SPEECH: He was mute. LANGUAGE: Could not be tested. CRANIAL NERVE EXAMINATION: II: He did blink to threat. He, however, was unable to cooperate for confrontation testing and in addition was also unable to count fingers. III, IV & : The external ocular movements were full and the pupils 3 mm in diameter, equal, round, regular, and reactive to light. V: He had normal facial sensations and the temporales, masseters, and pterygoids functioned normally. VII: He had normal facial expressions and no facial asymmetry. VIII: He was able to hear and had no nystagmus. IX: The palate moved symmetrically on phonation. X: He had no hoarseness of voice. XI: The sternocleidomastoids and trapezii functioned normally. XII: The tongue was in the midline without any fasciculations or atrophy. MOTOR SYSTEM: The tone was increased in all four extremities with spasticity. Examination of muscle mass revealed severe generalized muscle wasting involving the lower extremities more than the upper extremities. Examination of power was impossible to perform on individual muscle groups. He had a significant quadriparesis involving the lower extremities more than the upper extremities. SENSORY EXAMINATION: He responded appropriately to deep pain. He was unable to cooperate for other sensory modalities. REFLEXES: 2++ and bilaterally symmetrical at the biceps, triceps, and brachioradialis. 2+ at both knees. 0 at both ankles. The plantar responses were flexor bilaterally. COORDINATION, STANCE & GAIT: Could not be tested. ABNORMAL MOVEMENTS: He exhibited choreoathetotic movements involving all his extremities and the facial muscles. In addition, he also exhibited bruxism. Impression/Recommendations Diagnostic Impression 1. Mr. Reece Murray is a 61-year-old, gentleman, of unknown handedness, who has a long history of Marseilles's disease, who was hospitalized for "a change in mental state and generalized weakness." 2. He is brighter today but is non verbal. He continues to exhibit choreoathetotic movements. He continues to be cognitively impoverished and weak. 3. On neurological examination, at this time, he does demonstrate global cerebral dysfunction. He is unable to communicate and is unable to cooperate for further mental status testing. He also demonstrates generalized weakness and generalized wasting of the muscles. His deep tendon reflexes are globally diminished. He, in addition, exhibits choreoathetotic movements of all his extremities and facial muscles. 4. Laboratory data on initial evaluation revealed that he was significantly hyponatremic with a sodium of 127. His CK was elevated to 226. He was significantly hypoalbuminemic with an albumin of 2.6. His CBC revealed that he is anemic with a hemoglobin of 10.4 and his urinalysis revealed 1+ leukocyte esterase, 0 to 2 red blood cells per high-power field, 2 to 4 white blood cells per high-power field, and a few urinary bacteria. 5. His B12 and TSH are normal. 6. 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 7. His encephalopathy is minimally better today. Recommendations 1. Continue present management. 2. Aggressive treatment of the patient's infectious process. 3. Correction of the patient's metabolic dysfunction. 4. Observe closely. Garrison Reid M.D., MVaishnaviSSaul. GARRISON REID Feb 06, 2017 12:41
[2017-02-06] MEDS ORDERED: Heparin 2000 units/Ns 1000ml INJ PRN (14:30)
[2017-02-06] MEDS ORDERED: Lidocaine 1% Plain 30 ml INJ PRN (14:30)
[2017-02-06] MEDS ORDERED: Sodium Bicarbonate 8.4% 50ml Inj IV PRN (14:30)
[2017-02-06] MEDS ORDERED: D5 1/2NS 1000ml IV ONE (15:31)
[2017-02-06] MEDS: cefTRIAXone 2 GM in D5W 110 ML IVPB SCH (15:41)
[2017-02-06 16:00] VITALS: BP 114/48
[2017-02-06] MEDS ORDERED: ROCEPHIN2 GM/50 ML IVPB (16:23)
[2017-02-06] MEDS ORDERED: ZYVOX600 MG GT (16:23)
[2017-02-06] MEDS ORDERED: COLISTIN150 MG HHN (16:28)
[2017-02-06] MEDS ORDERED: MIDODRINE HCL10 MG GT (16:28)
[2017-02-06] MEDS ORDERED: ATIVAN1 MG ORAL (16:28)
[2017-02-06] MEDS ORDERED: ZYPREXA2.5 MG GT (16:28)
[2017-02-06] MEDS ORDERED: LANSOPRAZOLE30 MG GT (16:28)
--- NOTE | 2017-02-06 21:10 | General Progress Note ---
Assessment/Plan Assessment/Plan Hematology Progress Note ASSESSMENT: 1. Anemia 2/2 chronic disease. 2. Decreased Hgb and hematocrit 3. Hyponatremia- now improved. 4. Hypertension. 5. Acute exacerbation of chronic encephalopathy. 6. Sepsis with sacral decubitis ulcerations- on abx 7. Psychiatric history. RECS: 1. Monitor counts. 2. Anemia workup has been ordered- pt has anemia 2/2 chronic disease. 3. Hb goals above 7. 4. Peripheral smear reviewed- wnl. 5. Medications reviewed. 6. Abx per ID service. 7. GI eval with egd and/or colo d/t positive stool occult blood 8. Appreciate consultation Subjective Constitutional: Reports: no symptoms HEENT: Reports: no symptoms Cardiovascular: Reports: no symptoms Respiratory: Reports: no symptoms Gastrointestinal/Abdominal: Reports: no symptoms Genitourinary: Reports: no symptoms Neurologic/Psychiatric: Reports: no symptoms Endocrine: Reports: no symptoms Hematologic/Lymphatic: Reports: anemia Allergies: Coded Allergies: No Known Allergies (Unverified , 10/23/14) Subjective no hemoptysis, no hematochezia, afebrile, to be DC Objective Last 24 Hour Vital Signs Date Time Temp Pulse Resp B/P Pulse Ox O2 Delivery O2 Flow Rate FiO2 02/06/17 19:46 Nasal Cannula 2.0 02/06/17 19:45 98 Nasal Cannula 2.0 02/06/17 16:00 97.3 76 20 114/48 98 Nasal Cannula 3.0 02/06/17 12:00 97.3 77 20 117/72 93 Nasal Cannula 3.0 02/06/17 11:15 74 20 99 Nasal Cannula 3.0 02/06/17 11:00 74 20 96 Nasal Cannula 3.0 02/06/17 08:00 97.3 59 20 20/95 95 Nasal Cannula 3.0 02/06/17 07:56 Nasal Cannula 2.0 02/06/17 07:55 95 Nasal Cannula 2.0 02/06/17 04:00 98.2 18 94 Nasal Cannula 2.0 02/06/17 00:00 98.2 64 18 115/72 96 Nasal Cannula 2.0 02/05/17 21:49 77 20 98 Nasal Cannula 2.0 28 02/05/17 21:48 Nasal Cannula 2.0 28 02/05/17 21:48 95 Nasal Cannula 2.0 28 02/05/17 21:40 28 02/05/17 21:40 76 20 94 Nasal Cannula 2.0 28 Intake and Output 02/05/17 02/06/17 19:00 07:00 Intake Total 530 ml 530 ml Output Total 550 ml Balance -20 ml 530 ml Intake Oral 0 ml Free Water 100 ml 50 ml IV Total 110 ml Tube Feeding 320 ml 480 ml Output Urine Total 550 ml # Bowel Movements 4 Height (Feet): 5 Height (Inches): 9.00 Weight (Pounds): 120 General Appearance: WD/WN EENT: PERRL/EOMI Neck: non-tender Cardiovascular: normal peripheral pulses Respiratory/Chest: chest wall non-tender Abdomen: normal bowel sounds Extremities: normal range of motion Edema: no edema noted Leg (L), no edema noted Leg (R), no edema noted Pedal (L) , no edema noted Pedal (R), no edema noted Generalized 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
--- NOTE | 2017-02-07 17:27 | Discharge Summary ---
Discharge Summary Hospital Course Date of Admission Jan 27, 2017 at 12:45 Date of Discharge Feb 06, 2017 at 20:20 Admitting Diagnosis generalized weakness RUMA Murray is a 61 year old male who was admitted on Jan 27, 2017 at 12:45 for Generalized Weakness Hospital Course [id number] Discharge Discharge Disposition Patient was discharged to SNF/Subacute Facility(03) Discharge Diagnoses: Bree Reese NP Feb 07, 2017 17:26
--- NOTE | 2017-02-08 04:58 | Discharge Summary 2 SIG ---
DATE OF ADMISSION: 01/27/2017 DATE OF DISCHARGE: 02/06/2017 CONSULTANTS: 1. Brandon Carvajal M.D. 2. Oscar Moffett M.D. 3. Leo Crain M.D. 4. Fantasma Reid M.D. 5. William Bradley M.D. 6. Joe Allen M.D. 7. Galen Chapman M.D. 8. Kera Saldivar M.D. BRIEF HOSPITAL COURSE: The patient is a 61-year-old male, who presented after having increased generalized weakness and decreased oxygen saturation. The patient had a prior history of hyponatremia. [facility]. On evaluation at ED, labs was significant for hyponatremia. Sodium was 127. Chest x-ray with findings of right lower lung infiltrate. Dr. Chapman was consulted. He was given 3% saline solution. Dr. Reid was consulted to evaluate alteration in mental status. He has a longstanding history of Belhaven's disease and neuro examination demonstrated global cerebral dysfunction. Oriented to self only and able to cooperate with other mental status testing. He has generalized weakness and generalized wasting of the muscle and exceeded choreoathetotic movements on his upper extremities and facial muscles. History and neurologic exam was most compatible with underlying advanced Belhaven's disease with a super added encephalopathy most probably related to hyponatremia and urinary tract infection and pneumonia. Infectious consultation was obtained for antibiotic management. The patient was admitted for sepsis and was started initially on Zosyn and vancomycin. He came in with a sacral pressure ulcer. Wound culture showed E. coli, Enterococcus and methicillin resistant Staphylococcus aureus. Sputum culture showed MDR, Pseudomonas and Acinetobacter. Blood cultures did not isolate any growth. Sepsis was assessed to be due to healthcare-associated pneumonia and wound infection. Antibiotics were adjusted. The patient was given inhalation colistin. The patient was treated with probable osteomyelitis on the sacral area and was given Zyvox and ceftriaxone and will need a total of weeks course of IV antibiotic treatment. He was provided with wound care and offloading and was seen by Dr. Moffett. On evaluation, stage IV sacral pressure ulcer with exposed bone and undermining, which was present circumferentially. was with appearance consistent with PPI from 6 to 12 o'clock. There was no erythema or warmth. No purulent drainage. The exposed bone was presumed to have osteomyelitis, however, would need biopsy and culture to confirm. Given the patient's degree of toxic shock, contractures and malnourishment prognosis for healing is extremely poor and need to aggressively offload, treat and obtain optimum nutritional support. Urgent debridement was not necessary. Dr. William Bradley was also consulted for evaluation of anemia. Anemia workup was done. Peripheral smear was normal. The patient had a decreased hemoglobin and hematocrit secondary to anemia of chronic disease. However would need GI evaluation for stool OB positive. Cardiac evaluation was done by Dr. Carvajal. was assessed to be likely due to bilateral pneumonia. He had episodes of hypotension and was continued on midodrine. He had stable EKG with no ischemic features. Hyponatremia improved. The patient was discharged to to a long-term. Advised to continue Zyvox and Rocephin until 03/07/2017. FINAL DIAGNOSES: 1. Sepsis due to healthcare-associated pneumonia and wound infection. 2. Healthcare-associated pneumonia. 3. Sacral pressure ulcer stage IV with probable osteomyelitis, present on admission. 4. Belhaven's disease. 5. Acute on chronic toxic metabolic encephalopathy. 6. Hyponatremia. 7. Hypotension. 8. Benign prostatic hypertrophy. 9. Hyperlipidemia. 10. Psychosis. 11. Anemia of chronic disease. 12. Hypertension. 13. Multiple deep tissue injury and pressure ulcer, present on admission. 14. Coronary artery disease. Kyle Nieves M.D. I have been assigned to dictate discharge summary on this account and I was not involved in the patient's management. Bree Reese N.P. DR: JAZMIN JOB#: [id number] CC:
--- NOTE | 2017-02-09 01:58 | Consultation ---
DATE OF CONSULTATION: 01/27/2017 CARDIOLOGY CONSULTATION: REQUESTING PHYSICIAN: Kyle Nieves M.D. REASON FOR CONSULTATION: Management of dyspnea. HISTORY OF PRESENT ILLNESS: The patient is a very unfortunate 61-year-old, who was brought in to this facility with increased generalized weakness and oxygen desaturation. Apparently, the patient has history of neuromuscular disorder and was found to have an increased hypoxia. Vital signs, blood pressure 102/68 and heart rate of 84. He was admitted to [facility] with the possible diagnosis of pneumonia and hyponatremia. Cardiology consultation was made at request of Dr. Nieves for management of dyspnea from Cardiology standpoint. The patient is not capable of providing any history due to his underlying neuromuscular disorder. Review of the record shows the patient has a prior history of coronary artery disease, risk factors for CAD including hypertension and diabetes mellitus. PAST MEDICAL HISTORY: 1. Coronary artery disease, the detail of which is unknown. 2. History of hypertension. 3. History of diabetes mellitus. 4. History of dysphagia, status post PEG placement. 5. 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 6. History of advanced encephalopathy. 7. History of epilepsy. PAST SURGICAL HISTORY: Status post PEG placement. MEDICATIONS: List of medication from nursing facility includes Abilify 20 mg p.o. G-tube daily, vitamin C 500 mg G-tube daily, aspirin 81 mg G-tube daily, atorvastatin 20 mg G-tube nightly, benztropine mesylate 1 mg G-tube twice daily, bisacodyl 10 mg G-tube daily, calcium carbonate 500 mg G-tube daily, ceftriaxone 2 g IV piggyback q. 24 hour, clonidine 0.25 mg G-tube twice daily, Colistin 150 mg HHN q.12 hours, Colace 100 mg G-tube three times daily, gabapentin 100 mg G-tube daily, glimepiride 1 mg G-tube before breakfast, [place] 5/325 mg two tablets G-tube q.4 hours p.r.n. pain, insulin NovoLog regular subcutaneous 8 units before meals, Lamictal 25 mg G-tube twice daily, Prevacid 30 mg G-tube daily, Zyvox 600 mg G-tube q.12 hours, lisinopril 5 mg G-tube daily, lorazepam 1 mg G-tube q.6 hours p.r.n. anxiety, magnesium hydroxide 30 mL G-tube daily, magnesium oxide 400 mg G-tube twice daily, metformin 500 mg G-tube twice daily, Flagyl 500 mg G-tube three times daily , midodrine 2.5 mg G-tube three times daily p.r.n. hypertension, mirtazapine 7.5 mg G-tube q.12 hours, multivitamin one tablet G-tube daily, Zyprexa 2.5 mg G-tube q.4 hours p.r.n. agitation, pantoprazole 40 mg G-tube daily, Elimite one application topically once daily, Zocor 40 mg G-tube daily, tamsulosin 0.4 mg G-tube nightly, Bactrim 400-80 mg one tablet G-tube q.12 hours, valproic acid 500 mg G-tube twice daily, vancomycin chloride 1.25 g IV q.12 hours, and zinc sulfate 220 mg G-tube daily. ALLERGIES: No known drug allergies. SOCIAL HISTORY: Lives in the group home facility. There is no recent history of drugs, alcohol or tobacco. FAMILY HISTORY: There is no record of any premature coronary artery disease in the first-degree relatives. REVIEW OF SYSTEMS: Unfortunately due to his underlying neurologic disorder, unable to obtain at this time. PHYSICAL EXAMINATION: VITAL SIGNS: Blood pressure on arrival to the hospital was 102/68, respirations 20, pulse of 94, temperature 98.4 degrees, and O2 saturation of 92%. GENERAL: The patient is a very unfortunate 61-year-old gentleman, chronically ill, in moderate distress. HEENT: Atraumatic and normocephalic. Anicteric. Pupils are equal, round, and reactive to light and accommodation. Dry mucosal membranes. Bitemporal wasting. Conjunctivae pallor. NECK: JVP is less than 5 cm. No carotid bruit. CARDIOVASCULAR: Normal S1 and S2. Regular rate and rhythm. No murmurs, gallops, or rubs. PMI is at fourth intercostal space in the midclavicular line. LUNGS: Clear to auscultation bilaterally. ABDOMEN: Soft, nontender, and nondistended. No hepatosplenomegaly. Presence of G-tube. EXTREMITIES: No evidence of edema, clubbing, or cyanosis. LABORATORY FINDINGS: WBC 3.8, hemoglobin 10.4, hematocrit 31.7, and platelet count 332,000. Sodium 127, potassium 4.9, chloride 88, BUN 14, creatinine 0.3, and glucose 78. Calcium is 8.1. Troponin I is less than 0.3. A 12-lead electrocardiogram shows sinus rhythm, heart rate [address] and T-wave abnormalities. Review of the chest x-ray, which showed no acute cardiopulmonary disease. Chest x-ray shows diffuse right and minimal left lung infiltrate versus edema correlate with clinical findings, bilateral pneumonia versus congestive heart failure. ASSESSMENT AND PLAN: The patient is a very unfortunate 61-year-old gentleman, seen in Cardiology consultation at request of Dr. Nieves. 1. Dyspnea, most likely due to bilateral pneumonia in view of the patient's oxygen saturation, evidence of leukopenia, left shift and bandemia. A 12-lead electrocardiogram does not show any evidence of ischemia. We would like to obtain a 2D echocardiography for assessment of left ventricular systolic function. Also hemodynamic evaluation. 2. Further therapeutic and diagnostic decision will be based on result of 2D echocardiography. 3. History of coronary artery disease, the detail of this is unknown. The ECG shows no evidence of ischemic features. 4. Hypotension most likely due to sepsis in view of hyponatremia. Normal saline is recommended. 5. History of hypertension. 6. History of diabetes mellitus. 7. History of [place] disease. I would like to thank, Dr. Nieves, for the courtesy of this consultation. Brandon Carvajal M.D. DR: Dandy JOB#: [id number] CC:
== END 2017-02-06 20:20 | DRG 871 ==
LOC: ENRESERVDT → ENRESERVTM → EDBD 10:48 → EMR 11:46 → 2W 12:45 → EDBEDREQ 21:00 → 2E 01-30 15:53 → 4E 02-01 11:47
DX: A41.9 Sepsis, unspecified organism (principal); J15.1 Pneumonia due to Pseudomonas; G82.50 Quadriplegia, unspecified; L89.154 Pressure ulcer of sacral region, stage 4; J15.6 Pneumonia due to other Gram-negative bacteria; G92 Toxic encephalopathy; L89.814 Pressure ulcer of head, stage 4; G10 Huntington's disease; E87.1 Hypo-osmolality and hyponatremia; M46.28 Osteomyelitis of vertebra, sacral and sacrococcygeal region; Z43.1 Encounter for attention to gastrostomy; N39.0 Urinary tract infection, site not specified; I95.9 Hypotension, unspecified; E11.9 Type 2 diabetes mellitus without complications; K21.9 Gastro-esophageal reflux disease without esophagitis; G62.9 Polyneuropathy, unspecified; J44.9 Chronic obstructive pulmonary disease, unspecified; I10 Essential (primary) hypertension; B96.20 Unspecified Escherichia coli [E. coli] as the cause of diseases classified elsewhere; N40.0 Benign prostatic hyperplasia without lower urinary tract symptoms; D63.8 Anemia in other chronic diseases classified elsewhere; I25.10 Atherosclerotic heart disease of native coronary artery without angina pectoris; G40.909 Epilepsy, unspecified, not intractable, without status epilepticus; R13.10 Dysphagia, unspecified; D50.9 Iron deficiency anemia, unspecified; F39 Unspecified mood [affective] disorder; L89.812 Pressure ulcer of head, stage 2; B95.62 Methicillin resistant Staphylococcus aureus infection as the cause of diseases classified elsewhere; Z16.24 Resistance to multiple antibiotics
CPT/HCPCS: 36415; 71010; 80048; 80053; 80061; 80202; 81003; 82270; 82550; 82553; 82607; 82728; 82746; 82962; 82977; 83036; 83540; 83550; 83605; 83735; 83880; 83930; 84100; 84134; 84443; 84484; 84550; 85007; 85025; 86140; 86703; 86705; 86709; 86803; 87040; 87070; 87081; 87181; 87205; 87340; 93005; 93306; 94640; 94664; 94760; 97803